=== PATIENT | female | born 1990 | race Caucasian/White ===

== ENCOUNTER → 2022-05-19 | Outpatient (CLI) | payer BC, SELFPAY ==
[2022-05-19 13:56] LABS: hCG Titer Quant., Serum 348 mIU/mL (1-3)
== END | disposition home or self-care (01) ==
PROVIDERS: PCP Nurse Practitioner Family; Referring Provider Nurse Practitioner Women's Health; Visit Provider Nurse Practitioner Women's Health
DX: O26.859 Spotting complicating pregnancy, unspecified trimester (principal)
CPT/HCPCS: 36415; 84702

== ENCOUNTER → 2022-05-21 | Outpatient (CLI) | payer BC, SELFPAY ==
[2022-05-21 16:12] LABS: hCG Titer Quant., Serum 1000 mIU/mL (1-3)
== END | disposition home or self-care (01) ==
LOC: LAB 14:09
PROVIDERS: Obstetrics & Gynecology; PCP Nurse Practitioner Family; Referring Provider Nurse Practitioner Women's Health; Visit Provider Nurse Practitioner Women's Health
DX: O26.859 Spotting complicating pregnancy, unspecified trimester (principal)
CPT/HCPCS: 36415; 84702

== ENCOUNTER → 2022-06-15 | Outpatient (CLI) | payer BC, SELFPAY ==
[2022-06-21 09:07] LABS: HPV APTIMA, High Risk Negative (Negative)
== END | disposition home or self-care (01) ==
LOC: LABSPEC 11:52
PROVIDERS: PCP Nurse Practitioner Family; Referring Provider Obstetrics & Gynecology; Visit Provider Obstetrics & Gynecology
DX: Z12.4 Encounter for screening for malignant neoplasm of cervix (principal)
CPT/HCPCS: 87624; 88175; G0145

== ENCOUNTER 2022-06-18 11:03 | Day surgery (SDC) | payer BC, SELFPAY ==
--- NOTE | 2022-06-18 11:39 | HP.PCM_ITS ---
History and Physical MR#: [id number] Acct: [id number]
--- NOTE | 2022-06-18 11:39 | PCM.HP.BLA ---
History and Physical MR#: [id number] Acct: [id number] Name:CAYLA LEAHY Rep #: [id number] : 1990 ? ? Provider: Dr. Cheyenne Cantor MD Age/Sex:? 32/F ? ? Location: [facility] [place] Status: Draft Intake Intake Visit Reasons:?NOB ? LMP:04/13 Examiner Rating Clerk Required: No Is patient in pain?: No Allergies No Known Allergies Allergy (Verified 06/15/22 09:26) Last Menstrual Period: 04/13/22 Zika: Zika virus screening: Negative : No PFSH PFSH Medical History?(Updated 06/15/22 @ 10:[address] Cheyenne Cantor MD) Ankylosing spondylitis Surgical History? Hx of wisdom tooth extraction Family History? Father Myocardial infarction Pulmonary embolism Heart diseaseMother Arthritis, rheumatoidSister EndometriosisGrandmother Alzheimer diseaseGrandfather Myocardial infarction Social History? adopted:? No household members:? family number of children:? 1 current occupational status:? employed current occupation:? [employer] current occupational exposures/hazards:? No pets and animals:? Yes pets and animals: dog(s) history of recent travel:? No sexually active:? Yes Smoking Status:? Never smoker alcohol intake:? never substance use type:? does not use well-balanced diet:? daily or most days caffeine:? Yes Type: tea Number of servings: 1 seatbelt use:? always do you feel safe at home:? No additional social history:? Chris- History ? ? ? 2 ? Elective abortions ? Hx Para ? ? ? 1 ? Spontaneous abortions ? Hx # Term Pregnancies ? ? ? 1 ? Ectopic pregnancies ? Hx # Pregnancies ? Multiple births ? # of living children ? ? ? 1 Past Pregnancies Del. Date Name GA/Weeks Outcome Route Bth Weight Gen Labor Lgth Anesthesia Del Locatn Provider FOB 10/30/20 Antonette 37 live - full term 6.6 Female 30+ epidural ? ? ? HPI NOB ? LMP:04/13 Details: CAYLA QUEVEDO is a 32 year old who presents for early evaluation and upon evaluation there is a GS with 6mm CRL with no FHT seen, non viable IUP. OB Visit AIME Calculator ? Estimated Delivery Date Method Current WG Current Estimate 01/18/23 LMP (Certain) 9w 0d Comments: HIV: Urine Culture: Sequential Screen: NIPT Screen: Estimated Due Date: 01/18/23 Expected Delivery Route/Plan Labor Preferences- CB/BF classes: [] labor support person: [] labor intervention preferences: [] pain management options preferred: [] cut cord/dad catch: [] : [] PP control planned: [] discussed possible routes of delivery and associated risks: [] special requests: [] Specific Issue/Plans Covid status: [] Flu vaccine: [] Tdap vaccine: [] Rhogam: [] LARC form signed: [] Problem list reviewed and updated with the most current plan of care details and appropriate orders placed.? Relevant counseling for the gestational age provided. Continue routine care and follow up unless otherwise noted in visit notes/problem list details Initial Weight:?Not Recorded Date <del>?</del> EGA Weight BP Urine Prot <del>?</del> Glucose FHR FuHt Pres Dilation <del>?</del> Effaced St Visit Note 06/15/22<del>?</del> 9w 0d 124 lb 133/76 <del>?</del> ? <del>?</del> ? ? SM- CRL cons with LMP SM- CRL 6 mm NOT cons with LMP Menstrual History Last Menstrual Period: 04/13/22 Reported LMP: definite On hormonal BC at conception: No Antepartum Record Genetic Screening: Congenital Heart Defect: Other, Neural Tube Defect: Other, Hemoglobinopathy Or Carrier: Other, Cystic Fibrosis: Other, Chromosome Abnormality: Other, Vern-Sachs: Other, Hemophilia: Other, Intellectual Disability/Autism: Other, Recurrent Loss/Stillbirth: Other, Other Structural Defect: Other, Other Genetic Disease: Other and Maternal Metabolic Disorder: Other Infection History: Live with someone with TB or Exposed to TB: No, Patient or Partner has history of Genital Herpes: No, Rash or Viral illness since last mentrual period: No, Prior GBS-Infected child: No, History of STD: No, HIV Infection: No, History of Hepatitis: No, Recent travel outside of [place]: No, Concern for hepatitis exposure: No and Varicella immune: Yes Medical History Medical History: Positive: Hypertension (Pre E with first preg ), Auto-immune disorder, Kidney disease/UTI ( kidney stones), 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 ), Pulmonary (e.g.,TB,Asthma) (childhood) and Relevant family history (clots after surgery) ROS Const Reports system reviewed and no additional complaints, except as documented Card Reports system reviewed and no additional complaints, except as documented Resp Reports system reviewed and no additional complaints, except as documented GI Reports system reviewed and no additional complaints, except as documented, Reports nausea Reports system reviewed and no additional complaints, except as documented Musc Reports system reviewed and no additional complaints, except as documented all other systems reviewed and negative Exam Const General: cooperative, healthy appearing, comfortable [facility] Head: normal to inspection Nose: external nose normal Face and sinus: normal facial exam Neck Neck: normal visual inspection, full ROM, no lymphadenopathy Thyroid: thyroid normal Chest Chest palpation & inspection: normal inspection of the chest Resp Effort & Inspection: normal respiratory effort GI Inspection: normal to inspection Palpation: soft, NTTP Extrem General: no pedal edema Coding missed discussed medical vs surgicla management- recommend surgical management. Assessment and Plan Assessment and Plan (1) Ankylosing spondylitis: ?Status:?Acute ?Comment: manages with diet. (2) History of pre-eclampsia in prior , currently : ?Status:?Acute ?Comment: ASA at 12 weeks, please order baseline labs with NOB (3) Supervision of high risk , antepartum: ?Status:?Acute ?Comment: AIME 01/20/23 RIKY Whitman (Arianna) Chris (4) : ?Status:?Acute ?Qualifiers: ?Weeks of gestation:?8 weeks? Qualified Code(s):?Z3A.08 - 8 weeks gestation of ?Comment: Discussed NIPT and AFP testing (5) Spotting affecting : ?Status:?Acute ?Comment: HCGx2 ? ? ? Orders: After discussing the patient's diagnosis and treatment plan options, patient wishes to proceed with surgical management. I have discussed with the patient the risks, benefits, and alternatives of the procedure which include but are not limited to risks of anesthesia, bleeding, infection, possible damage to bowel, bladder, or surrounding vasculature which could lead to additional surgery to evaluate any complications. Patient agrees to procedure and wishes to proceed. ACOG/uptodate references given for additional information regarding procedure.
[2022-06-18 11:42] VITALS: BP 103/61; PULSE 83; RESP 16; TEMP 36.9; O2SAT 100; BMI 20.7
[2022-06-18 11:47] LABS: Hematocrit 37.4 % (37-47); Hemoglobin 12.7 g/dL (12.0-15.0); Mean Corpuscular Hgb 30.4 pg (27.0-32.0); Mean Corpuscular Volume 89.5 fL (81-99); Mean Platelet Vol. 9.6 fl (6.2-12.0); Platelet Count 188 K/mm3 (150-450); RBC Distribution Width CV 11.7 % (11.6-14.6); RBC Distribution Width SD 38.1 fl (35.1-43.9); Red Blood Count 4.18 M/mm3 (4.2-5.4)
[2022-06-18] MEDS: Lactated Ringers 1,000 ML 15 ML IV (11:55)
[2022-06-18] MEDS: Doxycycline 100 MG CAPSULE PO (11:55)
--- NOTE | 2022-06-18 12:28 | OP.PCM_ITS ---
Problems Associated Problem List Diagnoses (1) Ankylosing spondylitis: (2) Missed : Report of Operation Date of Procedure: 06/18/22 Pre-Operative Diagnosis: see problem list Post-Operative Diagnosis: same Surgery/Procedure Performed:: Suction dilation and curettage Description of Surgical Findings:: no FHT present, Nonviable 9 weeks measuring 6 Surgeon: Cheyenne Cantor conservation science officer: None Type of Anesthesia: Local MAC Special Medications: none Specimen's removed: POC Drains: none Estimated Blood Loss (mL): 50 Fluids Replaced: crystalloid Description of Procedure: Patient was taken to the operating room and placed under MAC local anesthesia. She was prepped and draped in the normal sterile fashion the dorsal lithotomy p osition. Bladder was drained of clear urine and anterior lip of the cervix was grasped and the uterus sounded to []. Cervix was progressively dilated to allow passage of a [] suction curette. Progressive passes were made removing the retained products of conception without complication. Sharp curettage confirmed complete removal of the retained products. All instruments were removed from the vagina and excellent hemostasis was noted and the patient was taken to recovery in stable condition. Grafts/Implants Used: none Complications none Admit VTE Documentation VTE Present on Admission: No VTE Mechan Device Prophylaxis: SCD's Procedures Urinary/Genital 52xxx-59xxx: 38246 Trmt of incomplete Ab, any TM Multi Select Codes Urinary/Genital Urinary/Genital CPT Codes: 96604 Surg Trtmt missed Ab 1TM
--- NOTE | 2022-06-18 12:30 | POC_PTH ---
PATIENT: CAYLA QUEVEDO LOC: [facility] [place] U#:[id number] AGE/SX: 32/F ROOM: RE06/18/[address]: Dr. Cheyenne Cantor MD : 1990 BED: DIS: 06/18/2022 SPEC #: [id number] RECD: 06/18/22 13:00 STATUS: ZULAY GRIFFITHS #: [id number] HALINA: 06/18/22 12:[address]: Cheyenne Cantor DEPT: SURGICAL PATHOLOGY RECD BY: Melissa Emerson ENTERED: 06/21/22 07:27 SP TYPE: PROD CONC OTHR DR: Araceli Cole, BAL Tissues: Product of conception, NOS Procedures: Surgery Specimen Level IV HEADER OPERATION: Suction dilation and curettage, Anora PRE-OP DIAGNOSIS: Miscarriage TISSUE SUBMITTED: Contents of conception MICROSCOPIC DIAGNOSIS Endometrium, curettage: Chorionic villi, decidualized stroma and trophoblastic cells consistent with products of conception. AM:shantelle 06/22/2022 COMMENT The results of Anora study will be reported separately. MICROSCOPIC DESCRIPTION Slides are reviewed. GROSS DESCRIPTION Received in fixative is one container labeled with the patient's name and designated products of conception. The specimen consists of multiple irregular fragments of pink-douglas soft tissue that in aggregate measure 7.0 x 5.0 x 0.2 cm. Percussion Tuner portions are submitted for Anora testing. Percussion Tuner sections are submitted in one cassette. / AM:shantelle 06/21/2022 TC:5 CPT: 22133
--- NOTE | 2022-06-18 12:34 | DCINST_ITS ---
Discharge Instructions Procedure D&C Diet Discharge Diet: No restrictions Activity Discharge Activity: Return to Normal Activity, May Shower and May Take a Tub Bath (after 1 week) May resume sexual activity in: 1-2 weeks Weight Bearing Status: Weight bearing as tolerated Lifting Restrictions: none Dressing / Incision Call your doctor if you observe: Fever of 101 or Higher, Using more than 1 pad per hour, Shortness of breath and Uncontrolled pain Follow Up Care Please Follow Up With: Cheyenne Cantor MD When: Call [phone] to schedule appointment. Test Results: Test results from this visit will be discussed in further detail at your follow- up appointment, if applicable. Discharge Plan Admission Attending Provider: Cheyenne Cantor Primary Care Provider: Araceli Cole NP Discharge Orders/Prescriptions Prescriptions: No Action Mushroom 1 cap PO/SL QHS Referrals / Follow Up: Araceli Cole NP, SOCIAL SERVICES SPECIALIST-C [Primary Care Provider] - Disposition Disposition (needs filled in before D/C Order can be placed): Home, Self Care
[2022-06-18 13:00] VITALS: BP 103/61; BP 96/61; PULSE 67; RESP 14; TEMP 36.6; O2SAT 98
[2022-06-18 13:05] VITALS: BP 101/59; BP 103/61; PULSE 54; RESP 16; O2SAT 100
[2022-06-18 13:10] VITALS: BP 103/57; BP 103/61; PULSE 54; RESP 16; O2SAT 100
[2022-06-18 13:15] VITALS: BP 103/61; BP 96/60; PULSE 53; RESP 16; TEMP 36.8; O2SAT 100
[2022-06-18 14:28] VITALS: BP 103/61; BP 92/55; PULSE 68; RESP 18; TEMP 37.1; O2SAT 100
== END 2022-06-18 14:37 | disposition home or self-care (01) ==
LOC: SDC 11:03 → AC 11:05
PROVIDERS: PCP Nurse Practitioner Family; Referring Provider Obstetrics & Gynecology; Visit Provider Obstetrics & Gynecology
PROC: (CPT 59820; principal; 2022-06-18 12:15)
DX: O02.1 Missed abortion (principal); M45.9 Ankylosing spondylitis of unspecified sites in spine; O99.891 Other specified diseases and conditions complicating pregnancy; O16.1 Unspecified maternal hypertension, first trimester
CPT/HCPCS: 59820; 01965; 85027; 86850; 86900; 86901; 88305; J7120; J2405

== ENCOUNTER → 2023-01-28 | Outpatient (CLI) | payer BC, SELFPAY | END | disposition home or self-care (01) | PROVIDERS: PCP Nurse Practitioner Family; Visit Provider Obstetrics & Gynecology | DX: N76.0 Acute vaginitis (principal) | CPT/HCPCS: 87070; 87205 ==

== ENCOUNTER → 2023-02-10 | Outpatient (CLI) | payer BC, SELFPAY | END | disposition home or self-care (01) | PROVIDERS: PCP Nurse Practitioner Family; Visit Provider Registered Nurse | DX: N93.9 Abnormal uterine and vaginal bleeding, unspecified (principal) | CPT/HCPCS: 87070; 87205 ==

== ENCOUNTER → 2023-03-08 | Outpatient (CLI) | payer BC, SELFPAY ==
[2023-03-08 10:12] LABS: Absolute Neutrophil Count 2.4 X10^3/uL (2.0-7.7); Basophil# 0.04 X10^3/uL; Basophil% 0.7 % (0-1); Eosinophil# 0.07 X10^3/uL; Eosinophils% 1.3 % (0-5); Hematocrit 36.8 % (37-47); Hemoglobin 12.2 g/dL (12.0-15.0); Lymphocyte % 46.2 % (19-41); Mean Corp Hgb Conc 33.2 g/dL (32-36); Mean Corpuscular Hgb 29.9 pg (27.0-32.0); Mean Corpuscular Volume 90.2 fL (81-99); Mean Platelet Vol. 9.1 fl (6.2-12.0); Monocyte% 7.4 % (0-10); NRBC Flagged by Analyzer 0 % (0-5); Neutrophil # 2.39 X10^3/uL (2.7-7.7); Neutrophil % 44.2 % (47-70); Platelet Count 249 K/mm3 (150-450); RBC Distribution Width SD 39.4 fl (35.1-43.9); Red Blood Count 4.08 M/mm3 (4.2-5.4); White Blood Count 5.4 K/mm3 (4.4-11.0)
[2023-03-08 10:49] LABS: Prolactin 5.1 ng/mL; Thyroid Stim Hormone (TSH) 1.49 uIU/mL (0.358-3.74)
--- OUTSIDE RECORDS SUMMARY | 2023-03-08 11:02 | XMS RPT_ITS | CCD ---
Author Name Unknown Address [address] [place] [address] Organization [facility] Care Team Providers Care Beverage Inspection Machine Tender Name Role Phone Unavailable Primary Care Provider Araceli Chambers (It Account Manager) Primary Care Provider [phone] Laci COSBY, Benito Unavailable YENNY HAWK Referring Unavailable ARACELI COLE (YARN PACKER) Primary Care UnavailARACELI Levy (YARN PACKER) Primary Care UnavailYENNY Holman Referring Unavailable Araceli Cole (It Account Manager) Primary Care Provider [phone] Benito Rivas MD Unavailable BENITO RIVAS Attending Unavailable AMIRA MARQUEZ Referring Unavailable ARACELI COLE (YARN PACKER) Primary Care UnavailYENNY Holman Attending Unavailable ARACELI COLE (YARN PACKER) Primary Care UnavailAMIRA Noble Attending Unavailable YENNY HAWK Attending Unavailable AMIRA MARQUEZ Referring Unavailable BENITO RIVAS Referring Unavailable ARACELI COLE (YARN PACKER) Primary Care ARACELI Johnson Primary Care Physician ARACELI PARKS Attending ARACELI Rodrigues Primary Care ARACELI Rodrigues Attending ARACELI Rodrigues Primary Care Sadiavacharity labtoby Allergies Allergy Classification Reported Allergen(s) Allergy Type Date of Onset Reaction(s) Facility (8 sources) meloxicam; Translations: [MELOXICAM] Drug Allergy 03-07-2019 Other: See Comments [facility] Work Phone: (8 sources) Pseudoephedrine; Translations: [PSEUDOEPHEDRINE HCL] Drug Allergy 12-08-2017 Other: See Comments [facility] Work Phone: Medications Current Medications Medication Drug Class(es) Dates Sig (Normalized) Sig (Original) iv contrast (will be provided with radiology test) (1 source) Start: 12-30-2021 End: 12-31-2021 iv contrast (will be provided with radiology test) MRI pelvis ortho Inj, intravenously, once for 1 dose. No IV access, insert saline lock prior to the beginning of sedation, infusion, injection of imaging exam. Discontinue saline lock post exam. If Pt. has a central line or IVAD, may access for administration according to line specific nursing protocol. Once exam is complete flush line and de-access according to line specific nursing protocol in the MR contrast administration guidelines link 1 Each 0 12/30/2021 12/31/2021 Active Completed/Discontinued Medications Medication Drug Class(es) Dates Sig (Normalized) Sig (Original) acetaminophen 500 mg oral tablet (1 source) Start: 11-01-2020 End: 11-10-2021 take 2 tablets by mouth every six hours as needed acetaminophen (TYLENOL EXTRA STRENGTH) 500 mg tablet Take 2 tablets by mouth every 6 hours as needed for pain. 100 tablet 1 11/01/2020 11/10/2021 Discontinued Problems Active Problems Problem Classification Problem Date Documented Da te Episodic/Chronic Cardiac dysrhythmias (1 source) Palpitations; Translations: [Palpitations] Episodic Genitourinary symptoms and ill-defined conditions (1 source) Abnormal urine; Translations: [Unspecified abnormal findings in urine] Episodic Malaise and fatigue (1 source) Malaise and fatigue; Translations: [Other malaise] Episodic Other bone disease and musculoskeletal deformities (1 source) Disorder of bone; Translations: [Disorder of bone, unspecified] Episodic Other connective tissue disease (7 sources) Muscle pain; Translations: [Myalgia, unspecified site] Onset: 11-14-2021 Episodic Other connective tissue disease (1 source) Myalgia, unspecified site; Translations: [Myalgia] Onset: 11-14-2021 Episodic Other non-traumatic joint disorders (2 sources) Multiple joint pain; Translations: [Pain in unspecified joint] Episodic Other non-traumatic joint disorders (1 source) Pain in unspecified joint; Translations: [Polyarthralgia] Onset: 12-24-2021 Episodic Other screening for suspected conditions (not mental disorders or infectious disease) (5 sources) Elevated C-reactive protein; Translations: [Elevated C-reactive protein (CRP)] Onset: 12-17-2021 Episodic Other upper respiratory infections (4 sources) Acute pharyngitis, unspecified; Translations: [Postnasal drip] Onset: 02-24-2023 Episodic Residual codes; unclassified (9 sources) History of pre-eclampsia; Translations: [Personal history of other complications of , childbirth and the puerperium] Onset: 12-09-2020 Episodic Residual codes; unclassified (1 source) Human leukocyte antigen B27 test positive; Translations: [Genetic susceptibility to other disease] Episodic Spondylosis; intervertebral disc disorders; other back problems (1 source) Spondyloarthritis; 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, site unspecified] Chronic Spondylosis; intervertebral disc disorders; other back problems (3 sources) Backache; Translations: [Other dorsalgia] Onset: 12-24-2021 Episodic Unclassified (2 sources) Patient encounter status 12-28-2022 Past or Other Problems Problem Classification Problem Date Documented Date Episodic/Chronic Residual codes; unclassified (6 sources) FH: Thrombosis; Translations: [Family history of ischemic heart disease and other diseases of the circulatory system] Onset: 06-17-2020 06-17-2020 Episodic Residual codes; unclassified (1 source) Personal history of other complications of , childbirth and the puerperium; Translations: [History of pre-eclampsia] Onset: 12-09-2020 Episodic Results Test Name Value Interpretation Reference Range Facil ity Vital Signs Date Time Vital Sign Value Performing Clinician Casandra schmitz 12-22-2021 09:48-0400 Diastolic blood pressure 56 mm[Hg] Benito Rivas MD Work Phone: [facility] 12-22-2021 09:48-0400 Heart rate 66 /min Benito Rivas MD Work Phone: [facility] 12-22-2021 09:48-0400 Systolic blood pressure 94 mm[Hg] Benito Rivas MD Work Phone: [facility] 12-22-2021 09:41-0400 Body height 162.6 cm Benito Rivas MD Work Phone: [facility] 12-22-2021 09:41-0400 Body weight 56.52 kg Benito Rivas MD Work Phone: [facility] 12-17-2021 14:26-0400 Body height 162.6 cm Yenny Hawk MD Work Phone: [facility] 12-17-2021 14:26-0400 Body temperature 97.59 [degF] Yenny Hawk MD Work Phone: [facility] 12-17-2021 14:26-0400 Body weight 56.7 kg Yenny Hawk MD Work Phone: [facility] 12-17-2021 14:26-0400 Diastolic blood pressure 77 mm[Hg] Yenny Hawk MD Work Phone: [facility] 12-17-2021 14:26-0400 Heart rate 95 /min Yenny Hawk MD Work Phone: [facility] 12-17-2021 14:26-0400 Systolic blood pressure 111 mm[Hg] Yenny Hawk MD Work Phone: [facility] 11-10-2021 10:41-0400 Body height 162.6 cm Amiragregory Marquez APRN.CNM Work Phone: [facility] 11-10-2021 10:41-0400 Body weight 56.25 kg Amiragregory Marquez RADIATION PROTECTION SPECIALIST.CNM Work Phone: [facility] 11-10-2021 10:41-0400 Diastolic blood pressure 68 mm[Hg] Amiragregory Duqueson RADIATION PROTECTION SPECIALIST.CNM Work Phone: [facility] 11-10-2021 10:41-0400 Systolic blood pressure 128 mm[Hg] Amira Marquez RADIATION PROTECTION SPECIALIST.CNM Work Phone: [facility] Encounters Encounter Date Encounter Type Care Provider Facility Start: 02-24-2023 End: 03-01-2023 ambulatory ARACELI COLE APRN-BRANCH MAKER Facility:B Start: 02-24-2023 End: 02-28-2023 Outreach Lab ARACELI COLE RADIATION PROTECTION SPECIALISTANA MARÍA [facility] Start: 12-28-2022 End: 12-29-2022 ambulatory ARACELI COLE RADIATION PROTECTION SPECIALIST-BRANCH MAKER Facility:B Start: 12-28-2022 End: 12-28-2022 Patient encounter procedure ARACELI COLE RADIATION PROTECTION SPECIALISTANA MARÍA [facility] Start: 12-30-2021 End: 12-30-2021 [facility] Yenny Hawk MD Work Phone: Rheumatology Procedures Date Procedure Procedure Detail Performing Clinician Start: 02-28-2022 Dilation and curetta ge of uterus ARACELI COLE ALEC Start: 10-28-2020 Antibody screen Plan of Treatment Date Care Activity Detail Author Start: 08-26-2030 Urine microalbumin profile DTAP,TDAP,TD (8 - Td or Tdap) [facility] Start: 04-27-2024 PAP TESTING PAP TESTING [facility] Start: 12-30-2021 End: 03-01-2022 Protein/Creatinine [Mass Ratio] in Urine PROTEIN CREATININE RATIO Lab Routine Abnormal urine findings Expected: 12/30/2021, Expires: 03/01/[address] [facility] Work Phone: Immunizations Immunization Date Immunization Notes Care Provider Sivakumar barnes 12-26-2020 SARS-CoV-2 mRNA (tozinameran) vaccine ARACELI COLE RADIATION PROTECTION SPECIALIST-BRANCH MAKER [facility] [place] Payers Date Payer Category Payer Unknown LILIANE LON MARTINEZ PPO [id number] 2020-Present [phone] [facility] [id number] [place] [address] PPO [id number] 2020 Unknown [id number] 1990 Unknown [id number] 1990 Unknown [id number] Social History Date Type Detail Facility Start: 11-10-2021 End: 11-30-2022 Tobacco smoking status NHIS Never smoked tobacco [facility] Start: 11-10-2021 Tobacco use and exposure Smokeless tobacco non-user [facility] Start: 11-10-2021 Alcohol intake Ex-drinker (finding) [facility] Start: 12-26-2018 History SDOH Alcohol Comment Occasionally [facility] Start: 1990 Sex Assigned At Female [facility] Start: 10-31-2021 End: 12-24-2021 Exposure to SARS-CoV-2 (event) Not sure [facility] Start: 12-22-2021 Alcohol intake Current drinke r of alcohol (finding) [facility] Start: 12-22-2021 Alcohol Comment Occasionally 1x/ mon th [facility] Sex Assigned At Sex [facility] Clinical Notes 10-28-2020 to 02-26-2023 Yenny Hawk MD - 12/30/2021 10:01 AM YEHUDA Camacho - 12/24/2021 9:45 AM José Miguel Rivas MD - 12/22/2021 9:30 AM Lion Hawk MD - 12/17/2021 3:06 PM EDTPatient Instructions Note Date & Type Note Facility 02-26-2023 Note . MICRO - Microbiology PROCEDURE: Throat Culture [*1] SOURCE: Throat BODY SITE: COLLECTED DATE/TIME: 02/24/2023 10:45 EST RECEIVED DATE/TIME: 02/24/2023 18:53 EST START DATE/TIME: 02/24/2023 18:53 EST FREE TEXT SOURCE: FINAL REPORTS Final Report [] Verified Date/Time/Personnel: 02/26/2023 07:40 EST Normal throat rangel present Sensitivity Testing: Not Indicated PRELIMINARY REPORTS Preliminary Report [] Verified Date/Time/Personnel: 02/25/2023 08:45 EST Negative for upper respiratory pathogens at 24 hours. Performing Locations *1: This test was performed at: [facility], [address] [place] [address], [facility] , [facility] ([place]) 12-30-2021 Note HNO ID: [id number] Author: Yenny Hawk MD Service: ? Author Type: Physician Type: Progress Notes Filed: 12/30/2021 10:28 AM Note Text: Rheumatology FOLLOW UP VISIT Date of Service: 12/30/2021 Patient: Cayla Quevedo Medical Record: [id number] Primary Care Physician: Araceli Cole NP Last Rheumatology visit: 12/17/2021 (with Yenny Hawk) Chief Complaint: Back Pain This is a virtual visit using Audio only. It required patient-provider interaction for the medical decision making as documented below. INTERVAL HISTORY Cayla Quevedo is a 31 year old White female with a history of preeclampsia, Martinez's palsy, left hip labral tear, family history of psoriatic arthritis, polyarthralgia who presents to rheumatology clinic for virtual follow-up typical for her test results. She is overall doing quite well. She went on a hiking trip in the [facility] and had no back pain and was able to carry her backpack without issue. No other new health concerns. RHEUMATOLOGIC HISTORY Cayla is both RF - 9 (12/24/2021) and CCP - 13.5 (12/24/2021) negative. Her most recent FERNANDO was positive (12/24/2021). 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 Today she presents to clinic alone. She states that she had her daughter 10/30/2020 and since that time she has been having issues. She has been having chronic fatigue where it is a struggle to get through her day. She does not have to take a nap every day but some days she would like to. She also has intermittent joint pain notably in her hands, knees, and back. This is associated with significant stiffness particularly in the morning. Her hand pain is described as burning, feeling hot from the inside, and a grinding pain with subjective decreased strength. It is mostly on the second and third MCPs in the interim space between the thumb and the second finger. When she gets flares in her hands episode will last a few days and eventually self resolved. She does not like to use medicine and has not tried NSAIDs. Since her also she also notes that she cannot get her back and pelvis properly aligned. She is following with a chiropractor and noticed lots of cracking in her pelvis with movement. Her low back pain does wake her up at night, improves with exercise, and is associate with significant morning stiffness. She also will intermittently get neck and upper back pain. Overall her symptoms are mild and are rated as a 3 out of 10 at its worst. Regarding her sleep, she sleeps 9 PM to 5 or 6 in the morning most nights. She intermittently wakes up but not every night. She only has issues falling back sleep due to her back stiffness. She wakes up feeling refreshed. She has also noticed other symptoms since having her child. She had persistent diarrhea and eventually this improved when she weaned from breast-feeding. She also noticed oral sores described as water blisters that occur monthly and worse with menstruation. Her skin gets white spots in the sun. She had 1 episode of tongue swelling. She does have significant dry mouth all the time and intermittent dry eye since her episode of Martinez's palsy on the left. She has made significant dietary changes including eliminating refined sugar and grains with improvement in her joint pains. Her feet turn bluish in the cold. She intermittently gets chest heaviness with palpitations. She had 1 episode of 12 hours of persistent [id number] in her hands and feet. She has had 1 , 1 child, no history of miscarriages, no blood clots. They are planning for additional in the next calendar year. Rheumatologic review of systems otherwise negative for fevers, headaches, history of uveitis, sores in her nose, malar rash, photosensitivity, difficulty swallowing, cough, congestion, abdominal pain, constipation, current diarrhea, blood in her urine or stool, rashes, Raynaud's. Pain Evaluation Pain Evaluation 10/31/2020 11/01/2020 11/01/2020 11/01/2020 12/22/2021 Pain Score 3 3 3 3 2 Location Perineal Area Perineal Area Perineal Area Perineal Area Chest Description Sore Sore Sore Sore Pressure Duration (#) - - - - 2 Duration (Timeframe) - - - - Months Frequency - - - - Intermittent Intervention Reposition;Relaxation Medication;Reposition;Relaxation Relaxation Medication;Reposit (more content not included)... [facility] 12-30-2021 History of Present illness Narrative Images from the original note were not included. Rheumatology FOLLOW UP VISIT Date of Service: 12/30/2021 Patient: Cayla Quevedo Medical Record: [id number] Primary Care Physician: Araceli Cole NP Last Rheumatology visit: 12/17/2021 (with Yenny Hawk) Chief Complaint: Back Pain This is a virtual visit using Audio only. It required patient-provider interaction for the medical decision making as documented below. INTERVAL HISTORY Cayla Quevedo is a 31 year old White female with a history of preeclampsia, Martinez's palsy, left hip labral tear, family history of psoriatic arthritis, polyarthralgia who presents to rheumatology clinic for virtual follow-up typical for her test results. She is overall doing quite well. She went on a hiking trip in the [facility] and had no back pain and was able to carry her backpack without issue. No other new health concerns. RHEUMATOLOGIC HISTORY Cayla is both RF - 9 (12/24/2021) and CCP - 13.5 (12/24/2021) negative. Her most recent FERNANDO was positive (12/24/2021). 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 Today she presents to clinic alone. She states that she had her daughter 10/30/2020 and since that time she has been having issues. She has been having chronic fatigue where it is a struggle to get through her day. She does not have to take a nap every day but some days she would like to. She also has intermittent joint pain notably in her hands, knees, and back. This is associated with significant stiffness particularly in the morning. Her hand pain is described as burning, feeling hot from the inside, and a grinding pain with subjective decreased strength. It is mostly on the second and third MCPs in the interim space between the thumb and the second finger. When she gets flares in her hands episode will last a few days and eventually self resolved. She does not like to use medicine and has not tried NSAIDs. Since her also she also notes that she cannot get her back and pelvis properly aligned. She is following with a chiropractor and noticed lots of cracking in her pelvis with movement. Her low back pain does wake her up at night, improves with exercise, and is associate with significant morning stiffness. She also will intermittently get neck and upper back pain. Overall her symptoms are mild and are rated as a 3 out of 10 at its worst. Regarding her sleep, she sleeps 9 PM to 5 or 6 in the morning most nights. She intermittently wakes up but not every night. She only has issues falling back sleep due to her back stiffness. She wakes up feeling refreshed. She has also noticed other symptoms since having her child. She had persistent diarrhea and eventually this improved when she weaned from breast-feeding. She also noticed oral sores described as water blisters that occur monthly and worse with menstruation. Her skin gets white spots in the sun. She had 1 episode of tongue swelling. She does have significant dry mouth all the time and intermittent dry eye since her episode of Martinez's palsy on the left. She has made significant dietary changes including eliminating refined sugar and grains with improvement in her joint pains. Her feet turn bluish in the cold. She intermittently gets chest heaviness with palpitations. She had 1 episode of 12 hours of persistent [id number]-[id number] in her hands and feet. She has had 1 , 1 child, no history of miscarriages, no blood clots. They are planning for additional in the next calendar year. Rheumatologic review of systems otherwise negative for fevers, headaches, history of uveitis, sores in her nose, malar rash, photosensitivity, difficulty swallowing, cough, congestion, abdominal pain, constipation, current diarrhea, blood in her urine or stool, rashes, Raynaud's. Pain Evaluation Pain Evaluation 10/31/2020 11/01/2020 11/01/2020 11/01/2020 12/22/2021 Pain Score 3 3 3 3 2 Location Perineal Area Perineal Area Perineal Area Perineal Area Chest Description Sore Sore Sore Sore Pressure Duration (#) - - - - 2 Duration (Timeframe) - - - - Months Frequency - - - - Intermittent Intervention Reposition;Relaxation Medication;Reposition;Relaxation Relaxation Medication;Reposition;Relaxation - PATIENT-ENTERED DATA PROMIS Assessments PROMIS Assessments 12/10/2021 Physical Health Percentile 53 % Mental Health Percentile 53 % Pain Score 4 Pain Interference Percentile 62 % Fatigue Percentile 58 % Physical Function Percentile 79 % RAPID 3 [place] Activities of Daily Living 12/10/2021 9:44 AM Dress self? Without ANY difficulty Get in and out of bed? Without ANY difficulty Walk outdoors? Without ANY difficulty Wash and dry body? Without ANY difficulty Get in and out of car? Without ANY difficulty RAPID 3 Disease Activity Weighed Score Levels: 0 - 1: Near Remission 1.3 - 2.0: Low Severity 2.3 - 4.0: Moderate Severity 4.3 - 10.0: High Severity RAPID-3 Weighed Score 12/10/2021 RAPID 3 Weighed Score 0.67 (Near Remission (NR)) Review of Systems CONSTITUTION: Negative for: Fever and Recent weight change HEENT: Positive for: Dry mouth Negative for: Nosebleeds, Mouth sores and Trouble swallowing RESPIRATORY: Negative for: Cough, Shortness of breath and Pain with breathing GASTROINTESTINAL: Negative for: Melena, Diarrhea, Heartburn and Abdominal pain MUSCULOSKELETAL: Negative for: Arthralgias, Myalgias, Muscle weakness, Joint swelling and Morning Joint Stiffness NEUROLOGICAL: Negative for: Headaches, Numbness and Memory loss SKIN: Negative for: Rash, Skin changes, Hair loss and Nail changes EYES: Negative for: Eye pain, Eye redness, Eye dryness and visual disturbance CARDIOVASCULAR: Negative for: Chest pain and Leg swelling GENITOURINARY: Negative for: Dysuria and Hematuria HEMATOLOGIC/LYMPHATIC: Negative for: Swollen glands REVIEW OF SYSTEMS Complete ROS (HEENT, respiratory, cardiology, GI, , skin, psych, hematology, endocrine, neuro, musculoskeletal) negativee except as noted in HPI. HISTORIES Past medical, surgical, family, and social history reviewed and notable changes since last visit include: No significant change MEDICATIONS Current Outpatient Medications Medication Sig iv contrast (will be provided with radiology test) MRI pelvis ortho Inj, intravenously, once for 1 dose. No IV access, insert saline lock prior to the beginning of sedation, infusion, injection of imaging exam. Discontinue saline lock post exam. If Pt. has a central line or IVAD, may access for administration according to line specific nursing protocol. Once exam is complete flush line and de-access according to line specific nursing protocol in the MR contrast administration guidelines link [id number] tab Take 1 tablet by mouth once daily. ALLERGIES ALLERGIES Allergen Reactions Meloxicam Other: See Comments syncope syncope syncope Pseudoephedrine Hcl Other: See Comments palpitations LABS Reviewed in Epic, notable for: Positive FERNANDO 1: 80 nuclear fine speckled Positive HLA-B27 FERNANDO negative RF, CCP Normal ESR, CRP Negative lupus anticoagulant panel CBC Latest Ref Rng & Units 10/28/2020 10/31/2020 11/07/2020 12/24/2021 WBC 3.70 - 11.00 k/uL 9.29 12.66(H) 7.08 5.04 HEMOGLOBIN 11.5 - 15.5 g/dL 14.0 12.8 14.9 13.4 HEMATOCRIT 36.0 - 46.0 % 41.1 38.3 44.8 39.7 PLATELETS 150 - 400 k/uL 153 119(L) 246 202 ABS NEUT (ANC) 1.45 - 7.50 k/uL - - - 2.42 ABS LYMPH 1.00 - 4.00 k/uL - - - 2.08 CMP Latest Ref Rng & Units 11/07/2020 11/14/2020 11/19/2020 12/24/2021 SODIUM 136 - 144 mmol/L 138 139 138 140 POTASSIUM 3.7 - 5.1 mmol/L 4.2 3.9 4.4 4.3 CHLORIDE 97 - 105 mmol/L 103 102 102 103 CO2 22 - 30 mmol/L 26 26 27 25 GLUCOSE 74 - 99 mg/dL 88 88 77 90 BUN 7 - 21 mg/dL 12 22(H) 12 18 CREATININE 0.58 - 0.96 mg/dL 0.69 1.36(H) 0.80 0.74 CALCIUM, TOTAL 8.5 - 10.2 mg/dL 9.6 9.4 9.5 9.8 AST 13 - 35 U/L 40(H) 19 20 14 ALT 7 - 38 U/L 59(H) 28 25 13 ALKALINE PHOSPHATASE 34 - 123 U/L 149(H) 107 100 65 Uric Acid Latest Ref Rng & Units 10/27/2020 11/07/2020 URIC ACID 2.5 - 6.6 mg/dL 5.8 5.8 ESR, WSR Latest Ref Rng & Units 12/24/2021 WSR 0 - 20 mm/hr 5 CRP Latest Ref Rng & Units 12/24/2021 CRP <0.9 mg/dL <0.3 C3, C4 Latest Ref Rng & Units 12/24/2021 C3 86 - 166 mg/dL 127 C4 13 - 46 mg/dL 44 RF and CCP Latest Ref Rng & Units 12/24/2021 RHEUMATOID FACTOR <16 IU/mL <10 CCP ANTIBODY IGG QUALITATIVE Negative Negative CCP ANTIBODY, IGG <20 Units <15 Hepatitis Screen Latest Ref Rng & Units 05/12/2020 HEPCABEIA Negative Negative HBSAG Negative Negative Antibodies Latest Ref Rng & Units 12/24/2021 12/24/2021 FERNANDO Negative Positive(A) - FERNANDO TITER - 1:80 - FERNANDO PATTERN - Nuclear fine speckled - DNA ANTIBODY W/CONFIRMATION <30 IU/mL <12 <12 PRESCHOOL ASSOCIATE TEACHER ANTIBODY QUAL Negative Negative Negative SSA ANTIBODY QUAL Negative Negative Negative JUNIOR-1 ANTIBODY, IGG <1.0 AI <0.2 <0.2 JUNIOR 1 ANTIBODY QUAL Negative Negative Negative RIBOSOMAL PRESCHOOL ASSOCIATE TEACHER AB <1.0 AI <0.2 <0.2 RIBOSOMAL PRESCHOOL ASSOCIATE TEACHER QUAL Negative Negative Negative ANTI-SSA <1.0 AI <0.2 <0.2 ANTI-SSB <1.0 AI <0.2 <0.2 ANTI-SM <1.0 AI <0.2 <0.2 SM ANTIBODY Negative Negative Negative SCL-70 AB QUAL Negative Negative Negative SCL-70 ABS, EIA <1.0 AI <0.2 <0.2 CENTROMERE AB <1.0 AI <0.2 <0.2 CENTROMERE AB QUAL Negative Negative Negative CHROMATIN AB <1.0 AI <0.2 <0.2 CHROMATIN AB QUAL Negative Negative Negative PT SEC 9.7 - 13.0 sec 10.4 - PT INR 0.9 - 1.3 1.0 - PTT 23.0 - 32.4 sec 27.6 - PLATELET NEUT Negative Negative - DRVVT SCREEN 32.0 - 45.7 seconds 38.9 - DRVVT CONFIRM RATIO <1.32 1.08 - DRVVT 1 TO 1 MIX 32.0 - 45.7 seconds 35.3 - HEX PHASE SCREEN 34.0 - 51.8 seconds 51.6 - HEX PHASE CONFIRM 34.2 - 47.9 seconds 46.3 - HEX PHASE DELTA <7.1 delta seconds 5.2 - APTT SCREEN 24.0 - 35.1 seconds 34.0 - THROMBIN TIME <18.6 seconds <16.8 - CARDIOLIPIN AB, IGG <15.0 GPL <9.0 - CARDIOLIPIN AB, IGM <12.5 MPL <9.0 - CARDIOLIPIN AB, IGA <12.0 APL <9.0 - HLA B27 12/24/2021 HLA-B27 DNA RESULT Positive Urinalysis Latest Ref Rng & Units 10/27/2020 10/28/2020 11/07/2020 12/24/2021 PROTEIN, URINE Neg mg/dL 2,000 - - - PROTEIN UA (POCT) Negative mg/dL - >=300(A) - - RBC, URINE 0-3 /HPF - - - 0-3 /HPF PROTEIN/CREATININE RATIO <0.15 mg/mg 2.2(H) - 3.9(H) <0.41(H) IMAGING Reviewed in Epic, notable for: Normal SI joint x-rays Normal hand and foot x-rays ASSESSMENT Cayla Quevedo is a 31 year old White female with a history of preeclampsia, Martinez's palsy, left hip labral tear, family history of psoriatic arthritis, polyarthralgia who presents to rheumatology clinic for virtual follow-up typical for her test results. 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 We discussed options including pretreat with NSAIDs and exercise versus additional work-up with MRI to evaluate SI joints. She has been self treating and doing better with medications and prefers MRI to evaluate if her disease remains active. Of note she was also on her period when her labs were drawn and had abnormal UA and urine protein creatinine so we will repeat those anytime. 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 MRI SI joints anytime 2. Repeat UA, urine protein/creatinine ratio anytime 3. Continue self treatment with exercise and diet 4. Consider prescription strength NSAID if symptoms were to worsen 5. We will touch base after MRI is done Orders this visit: [facility] on 12[facility]30[facility]21 MRI PELVIS ORTHO GENERAL WO/W IVCON URINALYSIS WITH MICROSCOPIC, REFLEX CULTURE PROTEIN CREATININE RATIO iv contrast (will be provided with radiology test) No follow-ups on file. I spent a total of 24 minutes on the date of the service which included preparing to see the patient, obtaining and/or reviewing separately obtained history, counseling and educating the patient/family/caregiver, and ordering medications, tests, or procedures. This note was partially generated with the assistance of [employer] voice recognition software. An attempt was made to correct any dictation errors however there may be some incorrect words, spellings, and punctuation. ___ Yenny Hawk MD Rheumatology Date: December 30, 2021 Time: 10:01 AM documented in this encounter [facility] 12-24-2021 Note HNO ID: [id number] Author: YEHUDA Bae Service: Radiology Author Type: Technologist Type: Progress Notes Filed: 12/24/2021 10:12 AM Note Text: Radiology Service Progress Note PATIENT NAME: Cayla Quevedo DATE OF SERVICE: December 24, 2021 TIME: 10:10 AM PATIENT IDENTITY VERIFICATION COMPLETED USING TWO (2) IDENTIFIERS: Name and Date of confirmed by patient verbally. FALL SCREENING: Has the patient had 2 falls in the last year or 1 fall with injury or currently using an Ambulatory Assistive Device (Walker, Cane, Wheelchair, Crutches, etc.)? No PATIENT GENDER DATA: Female. status: : No status: NO. PATIENT RELEVANT IMPLANT DATA REVIEWED: Not Applicable RADIOLOGY DEPARTMENT: General X-ray: Exam(s) Completed: Lower Extremity X-Ray(s): Foot, Bilateral Upper Extremity X-Ray(s): Hand, bilateral PERIPHERAL IV DATA: Not applicable SIGNED BY: YEHUDA Bae December 24, 2021 10:10 AM [facility] 12-24-2021 History of Present illness Narrative Radiology Service Progress Note PATIENT NAME: Cayla Quevedo DATE OF SERVICE: December 24, 2021 TIME: 10:10 AM PATIENT IDENTITY VERIFICATION COMPLETED USING TWO (2) IDENTIFIERS: Name and Date of confirmed by patient verbally. FALL SCREENING: Has the patient had 2 falls in the last year or 1 fall with injury or currently using an Ambulatory Assistive Device (Walker, Cane, Wheelchair, Crutches, etc.)? No PATIENT GENDER DATA: Female. status: : No status: NO. PATIENT RELEVANT IMPLANT DATA REVIEWED: Not Applicable RADIOLOGY DEPARTMENT: General X-ray: Exam(s) Completed: Lower Extremity X-Ray(s): Foot, Bilateral Upper Extremity X-Ray(s): Hand, bilateral PERIPHERAL IV DATA: Not applicable SIGNED BY: YEHUDA Bae December 24, 2021 10:10 AM documented in this encounter [facility] 12-22-2021 Note HNO ID: [id number] Author: Benito Rivas MD Service: ? Author Type: Physician Type: Progress Notes Filed: 01/18/2022 10:37 PM Note Text: Heart and Vascular [facility] Department of Cardiovascular Medicine SECTION OF PREVENTIVE CARDIOLOGY Cayla Quevedo 12/22/2021 CHIEF COMPLAINT: Patient presents with: CARD New Patient Consult: Hx pre-eclampsia HISTORY OF PRESENT CARDIOVASCULAR ILLNESS: Cayla Quevedo is a 31 year old female who presents for high risk primary prevention, preeclampsia with recent .. -- #1 delivery 10/30/2021 3rd trimester BP's 140/90's, associated with headaches induced @ 37 wks 35-40 lbs weight gain during --home BP's checked in few weeks after delivery, SBP < 120's --chest pain heavy heartbeat , stronger heartbeat 5-6 beats, lasting few seconds not associated with exertion; while seated, in mornings while laying no recent syncope; though multiple episodes age [age], even into college years --diet-- antiinflammatory diet ; decreased caffeine, alcohol, refined sugars Denies shortness of breath, dyspnea on exertion, activity limitations, PND, orthopnea, LE edema CARDIAC RISK FACTORS: Not specified Exercise: More than 5 times per week Family History of CAD: Positive (male<55, female<65) HIIT walking 2 miles up to 5-6 miles Pilates, yoga, barre class cardio 5-6x/week denies limitations to exercise father CAD s/p CABG age 60's PGFa CAD s/p CABG age 55 Avg. Sleep Hours Per Night?: 7 STATIN INTOLERANCE: Adverse Effect History of Statin Intolerance:: No Current Statin Freq: None USE OF PCSK9 INHIBITORS: CARDIOVASCULAR DISEASE HISTORY: Valve Disease: Arrhythmias: HEART FAILURE/CARDIOMYOPATHY: RELATED DISEASE HISTORY: History question Answer Diagnosis Date Comment POTS : Postural orthostatic tachycardia syndrome 2007 suspected POTS, multiple epsiodes of syncope age [age] PAST MEDICAL HISTORY: PAST MEDICAL HISTORY Diagnosis Date Mild pre-eclampsia in third trimester 10/28/2020 NEGATIVE MEDICAL HISTORY Postural orthostatic tachycardia syndrome 2007 suspected POTS, multiple epsiodes of syncope age 15-17 CURRENT MEDS: Current Outpatient Medications Medication Sig Qavxjtnw-Ia-Mqu-Fe-FA tab Take 1 tablet by mouth once daily. No current facility-administered medications for this visit. ALLERGIES: ALLERGIES Allergen Reactions Meloxicam Other: See Comments syncope syncope syncope Pseudoephedrine Hcl Other: See Comments palpitations FAMILY HISTORY: FAMILY HISTORY Problem Relation Age of Onset other (Psoriatic Arthritis) Mother Hypertension Father Coronary Artery Disease Father CAD s/p CABG age 60 other (Pulmonary Embolism) Father No Known Problems Sister other (Ovarian Cyst) Sister other (Anemia) Sister other (Endometrosis) Sister Arthritis Maternal Grandmother other (Ovarian Cysts) Maternal Grandmother Kidney Disease Maternal Grandfather Aneurysm Maternal Grandfather Abdominal Alzheimer's Disease Paternal Grandmother Coronary Artery Disease Paternal Grandfather CAD s/p CABG age 55 SOCIAL HISTORY: Lifestyle Employer And Job Title: [employer] ([email or web address] Years Of Education Completed: Not specified Marital Status: to Chris with 1 child Tobacco use in the last year: No Alcohol Use: Yes (Occasionally 1x/ month) REVIEW OF SYSTEMS: positives appear in bold GENERAL:Negative for malaise, significant weight loss or gain and fever HEENT:Negative for frequent or significant headaches, significant changes in vision or vision problems, significant ear problems or hearing loss, nasal discharge or nose bleeds and sore throat, difficulty swallowing, mouth lesions NECK:Negative for lumps, goiter, pain and significant neck swelling RESPIRATORY: Negative for cough, wheezing and shortness of breath CARDIOVASCULAR: Negative for chest pain, leg swelling and palpitations GASTROINTESTINAL: Negative for abdominal discomfort, blood in stools or black stools and change in bowel habits GENITOURINARY: Negative for dysuria, frequency and incontinence MANUFACTURING ASSOCIATE: Negative for abnormal vaginal bleeding, abnormal vaginal discharge and breast symptoms MUSCULOSKELETAL: Negative for joint pain or swelling--fingers, intense burning, pain, back pain, feet pain, and muscle pain. NEUROLOGIC:Negative for focal numbness or weakness, headaches and dizziness. SKIN:Negative for lesions, rash, and itching. PSYCHIATRIC: Negative for sleep disturbance, mood disorder and recent psychosocial stressors. HEMATOLOGIC/LYMPHATIC/IMMUNOLOGIC: Negative for prolonged bleeding, bruising easily, and swollen nodes. ENDOCRINE: Negative for cold or heat intolerance, polyuria, polydipsia and goiter. PHYSICAL EXAMINATION: BP 94/56 (BP Site: Right Arm, BP Position: Sitting, BP Cuff Size: Regular Adult) Pulse 66 Ht 162.6 cm (5' 4 ) Wt 56.5 (more content not included)... [facility] 12-22-2021 History of Present illness Narrative Images from the original note were not included. Heart [facility] V[facility] Department of Cardiovascular Medicine SECTION OF PREVENTIVE CARDIOLOGY Cayla Quevedo 12/22/2021 CHIEF COMPLAINT: Patient presents with: CARD New Patient Consult: Hx pre-eclampsia HISTORY OF PRESENT CARDIOVASCULAR ILLNESS: Cayla Quevedo is a 31 year old female who presents for high risk primary prevention, preeclampsia with recent .. -- #1 delivery 10/30/2021 3rd trimester BP's 140/90's, associated with headaches induced @ 37 wks 35-40 lbs weight gain during --home BP's checked in few weeks after delivery, SBP < 120's --chest pain heavy heartbeat , stronger heartbeat 5-6 beats, lasting few seconds not associated with exertion; while seated, in mornings while laying no recent syncope; though multiple episodes age [age], even into college years --diet-- antiinflammatory diet ; decreased caffeine, alcohol, refined sugars Denies shortness of breath, dyspnea on exertion, activity limitations, PND, orthopnea, LE edema CARDIAC RISK FACTORS: Not specified Exercise: More than 5 times per week Family History of CAD: Positive (male<55, female<65) HIIT walking 2 miles up to 5-6 miles Pilates, yoga, barre class cardio 5-6x/week denies limitations to exercise father CAD s/p CABG age 60's PGFa CAD s/p CABG age 55 Avg. Sleep Hours Per Night?: 7 STATIN INTOLERANCE: Adverse Effect History of Statin Intolerance:: No Current Statin Freq: None USE OF PCSK9 INHIBITORS: CARDIOVASCULAR DISEASE HISTORY: Valve Disease: Arrhythmias: HEART FAILURE/CARDIOMYOPATHY: RELATED DISEASE HISTORY: History question Answer Diagnosis Date Comment POTS : Postural orthostatic tachycardia syndrome 2007 suspected POTS, multiple epsiodes of syncope age [age] PAST MEDICAL HISTORY: PAST MEDICAL HISTORY Diagnosis Date Mild pre-eclampsia in third trimester 10/28/2020 NEGATIVE MEDICAL HISTORY Postural orthostatic tachycardia syndrome 2007 suspected POTS, multiple epsiodes of syncope age [age] CURRENT MEDS: Current Outpatient Medications Medication Sig Yeelenad-Gl-Lxr-Fe-FA tab Take 1 tablet by mouth once daily. No current facility-administered medications for this visit. ALLERGIES: ALLERGIES Allergen Reactions Meloxicam Other: See Comments syncope syncope syncope Pseudoephedrine Hcl Other: See Comments palpitations FAMILY HISTORY: FAMILY HISTORY Problem Relation Age of Onset other (Psoriatic Arthritis) Mother Hypertension Father Coronary Artery Disease Father CAD s/p CABG age 60 other (Pulmonary Embolism) Father No Known Problems Sister other (Ovarian Cyst) Sister other (Anemia) Sister other (Endometrosis) Sister Arthritis Maternal Grandmother other (Ovarian Cysts) Maternal Grandmother Kidney Disease Maternal Grandfather Aneurysm Maternal Grandfather Abdominal Alzheimer's Disease Paternal Grandmother Coronary Artery Disease Paternal Grandfather CAD s/p CABG age 55 SOCIAL HISTORY: Lifestyle Employer And Job Title: [employer] ([email or web address] Years Of Education Completed: Not specified Marital Status: to Chris with 1 child Tobacco use in the last year: No Alcohol Use: Yes (Occasionally 1x/ month) REVIEW OF SYSTEMS: positives appear in bold GENERAL:Negative for malaise, significant weight loss or gain and fever HEENT:Negative for frequent or significant headaches, significant changes in vision or vision problems, significant ear problems or hearing loss, nasal discharge or nose bleeds and sore throat, difficulty swallowing, mouth lesions NECK:Negative for lumps, goiter, pain and significant neck swelling RESPIRATORY: Negative for cough, wheezing and shortness of breath CARDIOVASCULAR: Negative for chest pain, leg swelling and palpitations GASTROINTESTINAL: Negative for abdominal discomfort, blood in stools or black stools and change in bowel habits GENITOURINARY: Negative for dysuria, frequency and incontinence MANUFACTURING ASSOCIATE: Negative for abnormal vaginal bleeding, abnormal vaginal discharge and breast symptoms MUSCULOSKELETAL: Negative for joint pain or swelling--fingers, intense burning, pain, back pain, feet pain, and muscle pain. NEUROLOGIC:Negative for focal numbness or weakness, headaches and dizziness. SKIN:Negative for lesions, rash, and itching. PSYCHIATRIC: Negative for sleep disturbance, mood disorder and recent psychosocial stressors. HEMATOLOGIC/LYMPHATIC/IMMUNOLOGIC: Negative for prolonged bleeding, bruising easily, and swollen nodes. ENDOCRINE: Negative for cold or heat intolerance, polyuria, polydipsia and goiter. PHYSICAL EXAMINATION: BP 94/56 (BP Site: Right Arm, BP Position: Sitting, BP Cuff Size: Regular Adult) Pulse 66 Ht 162.6 cm (5' 4 ) Wt 56.5 kg (124 lb 9.6 oz) LMP 12/21/2021 (Exact Date) No BMI 21.39 kg/m Gen: pleasant trim young female, NARD HEENT: PERRL, conj pink, OP benign neck: 2+ carotids, no bruits, JVP 7 chest: CTA B CV: RRR normal S1, S2 abd: soft, NTND, normal BS's ext: no edema; 2+ DP/PT pulses neuro: alert, oriented X 3; normal gait CLINICAL TESTING RESULTS: EKG December 22, 2021 reviewed--NSR 63 sinus arrhythmia, QTc 403 LABS: No results found for: CHOL, HDL, LDL, TG Hemoglobin (g/dL) Date Value 11/07/2020 14.9 Hematocrit (%) Date Value 11/07/2020 44.8 WBC (k/uL) Date Value 11/07/2020 7.08 Platelet Count Date Value Ref Range Status 11/07/2020 246 150 - 400 k/uL Final Creatinine Date Value Ref Range Status 11/19/2020 0.80 0.58 - 0.96 mg/dL Final 11/14/2020 1.36 (H) 0.58 - 0.96 mg/dL Final 11/07/2020 0.69 0.58 - 0.96 mg/dL Final 10/30/2020 0.67 (L) 0.70 - 1.40 mg/dL Final AST Date Value Ref Range Status 11/19/2020 20 13 - 35 U/L Final ALT Date Value Ref Range Status 11/19/2020 25 7 - 38 U/L Final Glucose (mg/dL) Date Value 11/19/2020 77 11/14/2020 88 11/07/2020 88 10/30/2020 83 10/30/2020 98 No results found for: HBA1C TSH Date Value Ref Range Status 08/13/2020 1.160 0.270 - 4.200 uU/mL Final Comment: If the patient is , TSH reference range varies by gestational period: First Trimester (weeks 9-12): 0.180-2.990 mcIU/mL Second Trimester: 0.110-3.980 mcIU/mL Third Trimester: 0.480-4.710 mcIU/mL Hunter Main et al. A Practical Approach for the Verifications and Determination of Site- and Trimester-Specific Reference Intervals for Thyroid Function tests in . Thyroid, 2019:29:3:412-420. Mehrdad Grove et al. 2017 Guidelines of the [place] Thyroid Association for the Diagnosis and Management of Thyroid Disease during and the . Thyroid, 2017:27:3:315-389. No results found for: LPA Interested in learning about research?: Yes PATIENT ENTERED QUESTIONNAIRE SCORES PHQ-9 12/20/2021 Score 3 KRISTEN - 7 SCORES 12/20/2021 KRISTEN-7 Score 0 PROMIS Global Health - (T-Scores - the mean of general population = 50. Five points is a clinically meaningful difference.) 12/10/2021 Physical T-Score 50.8 Mental T-Score 50.8 AMBULATORY PATIENT EDUCATION Topic: Hypertension, Exercise, Nutrition, and Novel Risk Markers Instruction Provided To: Patient Barriers: None Motivation to Learn: Interested Methods of Instruction: Verbal instruction and/or handouts. Patient Leans Best By: Multiple Methods Patient Verbalized: Understanding IMPRESSION: This consultation was requested by Amira Marquez APRN.C*, and my final recommendations will be communicated back to the requesting physician and primary care provider by way of shared medical record or letter summarizing my evaluation. 31 year old female eula (Epuramat) presents on referral from Dr. Marquez for high risk primary prevention, h/o preeclampsia. Pt reported overall good health, though had several episodes of syncope during teen years, attributed to possible POTS. obstetric history --baby #1 delivery 10/30/2021 3rd trimester BP's 140/90's, associated with headaches induced @ 37 wks mild preeclampsia 35-40 lbs weight gain during preeclampsia (10/2021) 11/2021 home BP's checked in few weeks after delivery, SBP < 120's suspected POTS--no recent syncope; though multiple episodes age 16-16, even into college years joint symptoms, evaluation ongoing for possible inflammatory arthritis lipids--2019 OSH labs TC 198/TG 57/HDL 69/LDL 115 untreated lifestyle--diet-- antiinflammatory diet ; decreased caffeine, alcohol, refined sugars. Exercise cardio 5-6x/week The ASCVD Risk score (Gonzalo DK, et al., 2019) failed to calculate for the following reasons: The 2019 ASCVD risk score is only valid for ages 40 to 79 PLAN: reviewed principles of high risk primary prevention (preeclampsia, FHx CAD), importance of lifestyle, role of statin therapy, goal LDL < 100, ideally < 70 reviewed preeclampsia and associated risks for future and future CV risk updated lipids for review no contraindication to future encouraged continued low fat diet, exercise continued workup planned with Rheumatology re: possible inflammatory arthritis RTC prn Benito Rivas MD Department of Cardiovascular Medicine documented in this encounter [facility] 12-17-2021 Note HNO ID: [id number] Author: Yenny Hawk MD Service: ? Author Type: Physician Type: Progress Notes Filed: 12/17/2021 3:27 PM Note Text: Rheumatology CONSULTATION Date of Service: 12/17/2021 Patient: Cayla Quevedo Medical Record: [id number] Primary Care Physician: Araceli Cole NP Last Rheumatology visit: None at [facility] Referring Provider: Amira Marquez [address] [facility] [address] [place] [address] Chief Complaint: Patient presents with: New Patient Cayla Quevedo is here today at request of Dr. Marquez specifically for consultation of my opinion in regards to the chief complaint listed above. Correspondence will be shared today via the [email or web address] electronic health record or through regular mail, where applicable. HISTORY OF PRESENT ILLNESS Cayla Quevedo is a 31 year old White female with a history of preeclampsia, Martinez's palsy, left hip labral tear, family history of psoriatic arthritis, polyarthralgia who presents to rheumatology clinic for evaluation of her ongoing symptoms in the setting of elevated CRP. Today she presents to clinic alone. She states that she had her daughter 10/30/2020 and since that time she has been having issues. She has been having chronic fatigue where it is a struggle to get through her day. She does not have to take a nap every day but some days she would like to. She also has intermittent joint pain notably in her hands, knees, and back. This is associated with significant stiffness particularly in the morning. Her hand pain is described as burning, feeling hot from the inside, and a grinding pain with subjective decreased strength. It is mostly on the second and third MCPs in the interim space between the thumb and the second finger. When she gets flares in her hands episode will last a few days and eventually self resolved. She does not like to use medicine and has not tried NSAIDs. Since her also she also notes that she cannot get her back and pelvis properly aligned. She is following with a chiropractor and noticed lots of cracking in her pelvis with movement. Her low back pain does wake her up at night, improves with exercise, and is associate with significant morning stiffness. She also will intermittently get neck and upper back pain. Overall her symptoms are mild and are rated as a 3 out of 10 at its worst. Regarding her sleep, she sleeps 9 PM to 5 or 6 in the morning most nights. She intermittently wakes up but not every night. She only has issues falling back sleep due to her back stiffness. She wakes up feeling refreshed. She has also noticed other symptoms since having her child. She had persistent diarrhea and eventually this improved when she weaned from breast-feeding. She also noticed oral sores described as water blisters that occur monthly and worse with menstruation. Her skin gets white spots in the sun. She had 1 episode of tongue swelling. She does have significant dry mouth all the time and intermittent dry eye since her episode of Martinez's palsy on the left. She has made significant dietary changes including eliminating refined sugar and grains with improvement in her joint pains. Her feet turn bluish in the cold. She intermittently gets chest heaviness with palpitations. She had 1 episode of 12 hours of persistent [id number] in her hands and feet. She has had 1 , 1 child, no history of miscarriages, no blood clots. They are planning for additional in the next calendar year. Rheumatologic review of systems otherwise negative for fevers, headaches, history of uveitis, sores in her nose, malar rash, photosensitivity, difficulty swallowing, cough, congestion, abdominal pain, constipation, current diarrhea, blood in her urine or stool, rashes, Raynaud's. Pain Evaluation Pain Evaluation 10/31/2020 10/31/2020 11/01/2020 11/01/2020 11/01/2020 Pain Score 3 3 3 3 3 Location Perineal Area Perineal Area Perineal Area Perineal Area Perineal Area Description Sore Sore Sore Sore Sore Duration (#) - - - - - Duration (Timeframe) - - - - - Frequency - - - - - Intervention Medication Reposition;Relaxation Medication;Reposition;Relaxation Relaxation Medication;Reposition;Relaxation PATIENT-ENTERED DATA PROMIS Assessments PROMIS Assessments 12/10/2021 Physical Health Percentile 53 % Mental Health Percentile 53 % Pain Score 4 Pain Interference Percentile 62 % Fatigue Percentile 58 % Physical Function Percentile 79 % RAPID 3 [place] Activities of Daily Living 12/10/2021 9:44 AM Dress self? Without ANY difficulty Get in and out of bed? Without ANY difficulty Walk outdoors? Without ANY difficulty Wash and dry body? Without ANY difficulty Get in and out of car? Without ANY difficulty RAPID 3 Disease Activity Weighed Score Levels: 0 - 1: Near Remission 1.3 - 2.0: Low Severity 2.3 - 4.0: Moderate Severity 4.3 - 10.0: High Severity RAPID-3 Weighed Score 12/10/2021 (more content not included)... [facility] 12-17-2021 History of Present illness Narrative Images from the original note were not included. Rheumatology CONSULTATION Date of Service: 12/17/2021 Patient: Cayla Quevedo Medical Record: [id number] Primary Care Physician: Araceli Cole NP Last Rheumatology visit: None at [facility] Referring Provider: Amira Marquez [address] [facility] [address] [facility] [id number] Chief Complaint: Patient presents with: New Patient Cayla Quevedo is here today at request of Dr. Marquez specifically for consultation of my opinion in regards to the chief complaint listed above. Correspondence will be shared today via the [email or web address] electronic health record or through regular mail, where applicable. HISTORY OF PRESENT ILLNESS Cayla Quevedo is a 31 year old White female with a history of preeclampsia, Martinez's palsy, left hip labral tear, family history of psoriatic arthritis, polyarthralgia who presents to rheumatology clinic for evaluation of her ongoing symptoms in the setting of elevated CRP. Today she presents to clinic alone. She states that she had her daughter 10/30/2020 and since that time she has been having issues. She has been having chronic fatigue where it is a struggle to get through her day. She does not have to take a nap every day but some days she would like to. She also has intermittent joint pain notably in her hands, knees, and back. This is associated with significant stiffness particularly in the morning. Her hand pain is described as burning, feeling hot from the inside, and a grinding pain with subjective decreased strength. It is mostly on the second and third MCPs in the interim space between the thumb and the second finger. When she gets flares in her hands episode will last a few days and eventually self resolved. She does not like to use medicine and has not tried NSAIDs. Since her also she also notes that she cannot get her back and pelvis properly aligned. She is following with a chiropractor and noticed lots of cracking in her pelvis with movement. Her low back pain does wake her up at night, improves with exercise, and is associate with significant morning stiffness. She also will intermittently get neck and upper back pain. Overall her symptoms are mild and are rated as a 3 out of 10 at its worst. Regarding her sleep, she sleeps 9 PM to 5 or 6 in the morning most nights. She intermittently wakes up but not every night. She only has issues falling back sleep due to her back stiffness. She wakes up feeling refreshed. She has also noticed other symptoms since having her child. She had persistent diarrhea and eventually this improved when she weaned from breast-feeding. She also noticed oral sores described as water blisters that occur monthly and worse with menstruation. Her skin gets white spots in the sun. She had 1 episode of tongue swelling. She does have significant dry mouth all the time and intermittent dry eye since her episode of Martinez's palsy on the left. She has made significant dietary changes including eliminating refined sugar and grains with improvement in her joint pains. Her feet turn bluish in the cold. She intermittently gets chest heaviness with palpitations. She had 1 episode of 12 hours of persistent [id number] in her hands and feet. She has had 1 , 1 child, no history of miscarriages, no blood clots. They are planning for additional in the next calendar year. Rheumatologic review of systems otherwise negative for fevers, headaches, history of uveitis, sores in her nose, malar rash, photosensitivity, difficulty swallowing, cough, congestion, abdominal pain, constipation, current diarrhea, blood in her urine or stool, rashes, Raynaud's. Pain Evaluation Pain Evaluation 10/31/2020 10/31/2020 11/01/2020 11/01/2020 11/01/2020 Pain Score 3 3 3 3 3 Location Perineal Area Perineal Area Perineal Area Perineal Area Perineal Area Description Sore Sore Sore Sore Sore Duration (#) - - - - - Duration (Timeframe) - - - - - Frequency - - - - - Intervention Medication Reposition;Relaxation Medication;Reposition;Relaxation Relaxation Medication;Reposition;Relaxation PATIENT-ENTERED DATA PROMIS Assessments PROMIS Assessments 12/10/2021 Physical Health Percentile 53 % Mental Health Percentile 53 % Pain Score 4 Pain Interference Percentile 62 % Fatigue Percentile 58 % Physical Function Percentile 79 % RAPID 3 [place] Activities of Daily Living 12/10/2021 9:44 AM Dress self? Without ANY difficulty Get in and out of bed? Without ANY difficulty Walk outdoors? Without ANY difficulty Wash and dry body? Without ANY difficulty Get in and out of car? Without ANY difficulty RAPID 3 Disease Activity Weighed Score Levels: 0 - 1: Near Remission 1.3 - 2.0: Low Severity 2.3 - 4.0: Moderate Severity 4.3 - 10.0: High Severity RAPID-3 Weighed Score 12/10/2021 RAPID 3 Weighed Score 0.67 (Near Remission (NR)) Review of Systems CONSTITUTION: Negative for: Fever and Recent weight change HEENT: Positive for: Mouth sores and Dry mouth Negative for: Nosebleeds and Trouble swallowing RESPIRATORY: Positive for: Shortness of breath Negative for: Cough and Pain with breathing GASTROINTESTINAL: Negative for: Melena, Diarrhea, Heartburn and Abdominal pain MUSCULOSKELETAL: Positive for: Arthralgias, Joint swelling and Morning Joint Stiffness Negative for: Myalgias and Muscle weakness NEUROLOGICAL: Negative for: Headaches, Numbness and Memory loss SKIN: Negative for: Rash, Skin changes, Hair loss and Nail changes EYES: Positive for: Eye dryness and Visual disturbance Negative for: Eye pain and Eye redness CARDIOVASCULAR: Positive for: Chest pain and Leg swelling GENITOURINARY: Negative for: Dysuria and Hematuria HEMATOLOGIC/LYMPHATIC: Negative for: Swollen glands REVIEW OF SYSTEMS Complete ROS (HEENT, respiratory, cardiology, GI, , skin, psych, hematology, endocrine, neuro, musculoskeletal) negativee except as noted in HPI. PAST MEDICAL HISTORY PAST MEDICAL HISTORY Diagnosis Date Mild pre-eclampsia in third trimester 10/28/2020 NEGATIVE MEDICAL HISTORY PAST SURGICAL HISTORY PAST SURGICAL HISTORY Procedure Laterality Date TOOTH EXTRACTION wisdom teeth FAMILY HISTORY: Multiple family members with blood clots in the past, no known familial coagulopathy Mother with psoriatic arthritis No other known family history of autoimmune disease FAMILY HISTORY Problem Relation Age of Onset other (Psoriatic Arthritis) Mother Hypertension Father Coronary Artery Disease Father Bypass Surgery other (Pulmonary Embolism) Father No Known Problems Sister Arthritis Maternal Grandmother other (Ovarian Cysts) Maternal Grandmother Kidney Disease Maternal Grandfather Aneurysm Maternal Grandfather Abdominal Alzheimer's Disease Paternal Grandmother Coronary Artery Disease Paternal Grandfather Triple Bypass other (Ovarian Cyst) Sister other (Anemia) Sister other (Endometrosis) Sister SOCIAL HISTORY: 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 ALLERGIES ALLERGIES Allergen Reactions Meloxicam Other: See Comments syncope syncope syncope Pseudoephedrine Hcl Other: See Comments palpitations PHYSICAL EXAM VITAL SIGNS: BP 111/77 Pulse 95 Temp (Src) 97.6 (Temporal) Ht 5' 4 (1.63m) Wt 125 lb (56.7kg) LMP 10/28/2021 BMI 21.45 kg/(m^2). GENERAL: Alert and oriented, appears stated age. In no acute distress. EYES: PERRL, EOMI, anicteric sclerae, no conjunctival injection HENT: Normal external examination of the ears and nose, lips, oropharynx and tongue. No oropharyngeal lesions or exudate. No oral or nasal sores. Slightly dry oral mucosa NECK: No mass or asymmetry. No lymphadenopathy RESPIRATORY: Normal respiratory effort. Clear to auscultation bilaterally CARDIOVASCULAR: Regular in rate and rhythm without murmurs, rubs, or gallops ABDOMEN: Soft, nontender, nondistended NEUROLOGIC: No gross focal neurologic deficits. Cranial nerves II-XII grossly intact. SKIN: No rash, thickening, nodules, discoloration. Normal nails. Normal nailfold capillaries. No digital pitting MSK: Normal range of motion, no deformities, no swelling, and no tenderness in the hands, wrists, elbows, shoulders, spine, hips, knees, ankles, feet except as noted below: Bilateral SI joint tenderness No stigmata of long-term inflammatory disease Hypermobile and elbows and back flexion Joint Exam 12/17/2021 Right Left Sacroiliac Tender Tender The following joints were examined and normal: Left Glenohumeral, Right Glenohumeral, Left Elbow, Right Elbow, Left Wrist, Right Wrist, Left MCP 1, Right MCP 1, Left MCP 2, Right MCP 2, Left MCP 3, Right MCP 3, Left MCP 4, Right MCP 4, Left MCP 5, Right MCP 5, Left IP, Right IP, Left PIP 2, Right PIP 2, Left PIP 3, Right PIP 3, Left PIP 4, Right PIP 4, Left PIP 5, Right PIP 5, Cervical Spine, Thoracic Spine, Lumbar Spine, Left Knee, Right Knee, Left Ankle, Right Ankle, Left Tarsometatarsal, Right Tarsometatarsal Joint Exam Data (across time) Joint Exam 12/17/2021 Total Tender 0 Total Swollen 0 LABS Reviewed in [facility], notable for: Uric acid 4.0 Creatinine 0.74 Magnesium 2.5 high Normal LFTs Ferritin 99 CRP 8.73 upper limit normal 3.0 TSH 2.13 Negative thyroid antibodies Vitamin D 48.4 WBC 5.8, hemoglobin 13.3, platelets 217, normal differential UA without blood or protein CBC Latest Ref Rng & Units 10/27/2020 10/28/2020 10/31/2020 11/07/2020 WBC 3.70 - 11.00 k/uL 8.82 9.29 12.66(H) 7.08 HEMOGLOBIN 11.5 - 15.5 g/dL 13.7 14.0 12.8 14.9 HEMATOCRIT 36.0 - 46.0 % 41.6 41.1 38.3 44.8 PLATELETS 150 - 400 k/uL 149(L) 153 119(L) 246 CMP Latest Ref Rng & Units 10/30/2020 11/07/2020 11/14/2020 11/19/2020 SODIUM 136 - 144 mmol/L 133 138 139 138 POTASSIUM 3.7 - 5.1 mmol/L 4.1 4.2 3.9 4.4 CHLORIDE 97 - 105 mmol/L 100 103 102 102 CO2 22 - 30 mmol/L 22(L) 26 26 27 GLUCOSE 74 - 99 mg/dL 83 88 88 77 BUN 7 - 21 mg/dL 10 12 22(H) 12 CREATININE 0.58 - 0.96 mg/dL 0.67(L) 0.69 1.36(H) 0.80 CALCIUM, TOTAL 8.5 - 10.2 mg/dL 8.8 9.6 9.4 9.5 AST 13 - 35 U/L - 40(H) 19 20 ALT 7 - 38 U/L - 59(H) 28 25 ALKALINE PHOSPHATASE 34 - 123 U/L - 149(H) 107 100 Uric Acid Latest Ref Rng & Units 10/27/2020 11/07/2020 URIC ACID 2.5 - 6.6 mg/dL 5.8 5.8 Hepatitis Screen Latest Ref Rng & Units 05/12/2020 HEPCABEIA Negative Negative HBSAG Negative Negative Urinalysis Latest Ref Rng & Units 10/21/2020 10/27/2020 10/28/2020 11/07/2020 PROTEIN, URINE Neg mg/dL + 2,000 - - PROTEIN UA (POCT) Negative mg/dL - - >=300(A) - PROTEIN/CREATININE RATIO <0.2 - 2.2(H) - 3.9(H) IMAGING Reviewed in [facility], notable for: No relevant imaging available for review ASSESSMENT Cayla Quevedo is a 31 year old White female with a history of preeclampsia, Martinez's palsy, left hip labral tear, family history of psoriatic arthritis, polyarthralgia who presents to rheumatology clinic for evaluation of her ongoing symptoms in the setting of elevated CRP. Today she is presenting with multiple symptoms including polyarthralgias of small joints, inflammatory type back pain, tenderness on SI joints, family history of psoriasis, sicca symptoms, Raynaud's versus acrocyanosis, chest pain, hypermobility, numbness tingling. Differential is large and includes Sjogren's, lupus, rheumatoid arthritis, spondyloarthropathy, small fiber neuropathy. It is likely that she has a hypermobility syndrome which can cause joint pain, autonomic dysfunction, GI manifestations, peripheral neuropathy. She could also have osteitis condensans ilii given her recent . However she does have a convincing history for inflammatory back pain potentially with peripheral involvement so we will work her up as below. IMPRESSIONS Diagnoses: (R53.81, R53.83) Malaise and fatigue (primary encounter diagnosis) (R79.82) Elevated C-reactive protein (CRP) (M79.10) Myalgia (M25.50) Polyarthralgia (M54.89) Inflammatory back pain PLAN 1. Labs as x-rays below 2. If work-up negative, would pursue MRI pelvis to evaluate for spondyloarthropathy particularly given family history of psoriatic arthritis 3. Can consider advanced Sjogren's evaluation in the future particularly given her fatigue 4. Can consider additional autonomic dysfunction work-up with [facility], currently symptoms are manageable and she does have upcoming appoint with cardiology given history of preeclampsia 5. Follow-up 1 to 3 weeks to discuss results and next steps Orders this visit: Office Visit on 12/17/21 XR FOOT GENERAL 3V AP/LAT/OBL BILATERAL XR SACROILIAC JOINTS 2V AP PELVIS/FERGUESON XR HAND GENERAL 3V PA/LAT/OBL BILATERAL C-REACTIVE PROTEIN (CRP) SED RATE WESTERGREN COMP METABOLIC PANEL CBC + DIFF PROTEIN ELECT RND UR W/INTERP URINALYSIS WITH MICROSCOPIC, REFLEX CULTURE KAPPA/JONES,FREE,SER PROTEIN ELECTROPHORESIS SERUM W/INTERP IMMUNOFIXATION SCREEN, SERUM LUPUS ANTICOAG PL DNA AB DS + CONF BLD C4 COMPLEMENT BLD C3 COMPLEMENT BLD PROTEIN CREATININE RATIO RIB P PRO IGG AUTOAB ANTI BALAJI ID FERNANDO BY IFA WITH REFLEX RHEUMATOID FACTOR BL CCP ANTIBODY IGG HLA-B27 PCR CONSULT TO RHEUM/IMMUN DISEASE Return in about 2 weeks (around 12/31/2021). I spent a total of 68 minutes on the date of the service which included preparing to see the patient, [id number] patient care, completing clinical documentation, obtaining and/or reviewing separately obtained history, performing a medically appropriate examination, counseling and educating the patient/family/caregiver, and ordering medications, tests, or procedures. This note was partially generated with the assistance of [employer] voice recognition software. An attempt was made to correct any dictation errors however there may be some incorrect words, spellings, and punctuation. ___ Yenny Hawk MD Rheumatology Date: December 17, 2021 Time: 3:07 PM documented in this encounter [facility] 12-17-2021 Instructions Yenny Hawk MD - 12/17/2021 3:02 PM EDT We will do lots of blood tests to look into lupus, Sjogren's, rheumatoid arthritis, spondyloarthritis X rays of hands, feet, low back, we may need MRI of the low back Follow up in 1-3 weeks to discuss results documented in this encounter [facility] 11-10-2021 Note HNO ID: [id number] Author: Amira Marquez APRN.RICCARDO Service: ? Author Type: Orthoptist Type: Progress Notes Filed: 11/14/2021 12:13 PM Note Text: Cayla is a 31 year old who presents for an annual gynecologic exam without complaints. She continues to complain of the same achiness in her hands and other joints as she complained about in her visit. Not well addressed and would like rheum consult for myalgias. 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 Comments: Sexual Activity: Yes; Male Contraception: Condom PAST MEDICAL HISTORY Diagnosis Date Mild pre-eclampsia in third trimester 10/28/2020 NEGATIVE MEDICAL HISTORY PAST SURGICAL HISTORY Procedure Laterality Date TOOTH EXTRACTION wisdom teeth FAMILY HISTORY Problem Relation Age of Onset other (Psoriatic Arthritis) Mother Hypertension Father Coronary Artery Disease Father Bypass Surgery other (Pulmonary Embolism) Father No Known Problems Sister Arthritis Maternal Grandmother other (Ovarian Cysts) Maternal Grandmother Kidney Disease Maternal Grandfather Aneurysm Maternal Grandfather Abdominal Alzheimer's Disease Paternal Grandmother Coronary Artery Disease Paternal Grandfather Triple Bypass other (Ovarian Cyst) Sister other (Anemia) Sister other (Endometrosis) Sister SOCIAL HISTORY Social History Tobacco Use Smoking status: Never Smokeless tobacco: Never Substance Use Topics Alcohol use: Not Currently Comment: Occasionally Drug use: Never REVIEW OF SYSTEMS Abdomen: No abdominal pain, nausea, vomiting, diarrhea, or constipation. No bloating, early satiety, indigestion, or increased flatulence. Bladder: No dysuria, gross hematuria, urinary frequency, urinary urgency, or incontinence. Breast: No breast lumps, nipple d/c, overlying skin changes, redness or skin retraction. Allergies and current medication updated:Yes EXAM: BP 128/68 Ht 5' 4 (1.63m) Wt 124 lb (56.2kg) LMP 10/28/2021 BMI 21.27 kg/(m2). GENERAL: pleasant, female in no apparent distress HEENT: Normocephalic, atraumatic, mucus membranes moist, and no lesions NECK: Supple, full range of motion, no adenopathy, and thyroid normal DERMATOLOGY: Normal, without lesions, non-icteric, and non-hirsute BREAST: soft, non-tender, symmetric, no dominant mass, normal nipple-areolar complex, no lymphadenopathy, and no nipple discharge CHEST: Clear to auscultation, Normal inspiratory effort, Regular rate and rhythm, and No murmurs, clicks, rubs or gallops ABDOMEN: Benign, soft, non-tender, and no masses PELVIC: Deferred BIMANUAL: deferred RECTOVAGINAL: deferred. NEURO: alert and oriented x3,exam grossly non-focal EXTREMITIES: normal ASSESSMENT/PLAN: 1) Health maintenance: Pap/HPV up to date. Nutrition, exercise and routine health maintenance exams reviewed. Calcium/Vitamin D supplementation information provided. 2) Contraception: none. Once source of pain is evaluated, she would like to consider conception. 3) STD screening: Declined STD check. 4) Follow up one year or sooner as needed 5) History of PECSF, so consult preventative cards. 6) Myalgias, so consult rheumatology. Amira Marquez APRN.[facility] 11-10-2021 History of Present illness Narrative Cayla is a 31 year old who presents for an annual gynecologic exam without complaints. She continues to complain of the same achiness in her hands and other joints as she complained about in her visit. Not well addressed and would like rheum consult for myalgias. 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 Comments: Sexual Activity: Yes; Male Contraception: Condom PAST MEDICAL HISTORY Diagnosis Date Mild pre-eclampsia in third trimester 10/28/2020 NEGATIVE MEDICAL HISTORY PAST SURGICAL HISTORY Procedure Laterality Date TOOTH EXTRACTION wisdom teeth FAMILY HISTORY Problem Relation Age of Onset other (Psoriatic Arthritis) Mother Hypertension Father Coronary Artery Disease Father Bypass Surgery other (Pulmonary Embolism) Father No Known Problems Sister Arthritis Maternal Grandmother other (Ovarian Cysts) Maternal Grandmother Kidney Disease Maternal Grandfather Aneurysm Maternal Grandfather Abdominal Alzheimer's Disease Paternal Grandmother Coronary Artery Disease Paternal Grandfather Triple Bypass other (Ovarian Cyst) Sister other (Anemia) Sister other (Endometrosis) Sister SOCIAL HISTORY Social History Tobacco Use Smoking status: Never Smokeless tobacco: Never Substance Use Topics Alcohol use: Not Currently Comment: Occasionally Drug use: Never REVIEW OF SYSTEMS Abdomen: No abdominal pain, nausea, vomiting, diarrhea, or constipation. No bloating, early satiety, indigestion, or increased flatulence. Bladder: No dysuria, gross hematuria, urinary frequency, urinary urgency, or incontinence. Breast: No breast lumps, nipple d/c, overlying skin changes, redness or skin retraction. Allergies and current medication updated:Yes EXAM: BP 128/68 Ht 5' 4 (1.63m) Wt 124 lb (56.2kg) LMP 10/28/2021 BMI 21.27 kg/(m^2). GENERAL: pleasant, female in no apparent distress HEENT: Normocephalic, atraumatic, mucus membranes moist, and no lesions NECK: Supple, full range of motion, no adenopathy, and thyroid normal DERMATOLOGY: Normal, without lesions, non-icteric, and non-hirsute BREAST: soft, non-tender, symmetric, no dominant mass, normal nipple-areolar complex, no lymphadenopathy, and no nipple discharge CHEST: Clear to auscultation, Normal inspiratory effort, Regular rate and rhythm, and No murmurs, clicks, rubs or gallops ABDOMEN: Benign, soft, non-tender, and no masses PELVIC: Deferred BIMANUAL: deferred RECTOVAGINAL: deferred. NEURO: alert and oriented x3,exam grossly non-focal EXTREMITIES: normal ASSESSMENT/PLAN: 1) Health maintenance: Pap/HPV up to date. Nutrition, exercise and routine health maintenance exams reviewed. Calcium/Vitamin D supplementation information provided. 2) Contraception: none. Once source of pain is evaluated, she would like to consider conception. 3) STD screening: Declined STD check. 4) Follow up one year or sooner as needed 5) History of PECSF, so consult preventative cards. 6) Myalgias, so consult rheumatology. Amira Marquez APRN.CNM documented in this encounter [facility] 11-01-2020 Note HNO ID: [id number] Author: Richardson Fan (C-sam) Service: ? Author Type: ? Type: Plan of Care Filed: 11/28/2020 2:23 PM Note Text: PHARMACY BEDSIDE DELIVERY SERVICE Patient Name: Cayla Quevedo The marked outpatient medications were filled and picked up at [facility] Medication List START taking these medications acetaminophen 500 mg tablet Commonly known as: TYLENOL EXTRA STRENGTH Take 2 tablets by mouth every 6 hours as needed for pain. docusate sodium 100 mg capsule Commonly known as: COLACE Take 2 capsules by mouth daily at bedtime. CONTINUE taking these medications BLOOD PRESSURE CUFF Generic drug: Miscellaneous Medical Supply 1 Each twice daily as needed. 1 + 1 ORAL You might also be taking other medications not listed above. If you have questions about any of your other medications, talk to the person who prescribed them or your Primary Care Provider. STOP taking these medications ECOTRIN LOW STRENGTH 81 mg EC tablet Generic drug: aspirin, enteric coated Richardson Fan (C-sam) [facility] 11-01-2020 Note HNO ID: [id number] Author: Niesha Rollins APRN.CNM Service: Obstetrics Author Type: Orthoptist Type: Progress Notes Filed: 11/01/2020 11:09 AM Note Text: Patient working on BF with , plans to discharge home today, has Colace ordered, would like Tylenol for home, not using Motrin due to Pre-eclampsia, will take BP at home bid and follow up in office with RN in a few days, has outpatient appointment as well, all questions answered. Plan of care discussed with: Provider, RN, Patient. Niesha Rollins APRN.CNM [facility] 10-31-2020 Note HNO ID: [id number] Author: Amanda Gonzalez APRN.CNM Service: Obstetrics Author Type: Orthoptist Type: Progress Notes Filed: 10/31/2020 11:37 AM Note Text: OBSTETRICS PROGRESS NOTE SERVICE DATE: October 31, 2020 SERVICE TIME: 11:15 AM ASSESSMENT: 30 year old female who is Day #1 status post Vaginal, Spontaneous delivery with female . Preeclampsia without severe features PLAN: Routine care. Encourage patient to use pain meds. . Control: Natural family planning and condoms Discharge instructions given to patient regarding pelvic rest, bathing, stairs, walking, lifting, driving, and follow-up. Patient expresses understanding. Pt has BP cuff and will take it daily at home. Will call with sustained elevated blood pressures or s/sx pre-eclampsia. Will do BP check in [address] Metcalf consulted regarding baby ASA . Discussed with pt that it is not evidence based to continue it, but there are not contraindications to continuing it either. Plan of care discussed with: Provider, RN, Patient. Anticipate discharge day: PPD #2 SUBJECTIVE: Patient has no current complaints. Tolerating PO intake. Urinating without difficulty. Passing flatus. Pain well controlled with current regimen. Lochia decreasing. Ambulating without difficulty. OBJECTIVE: PHYSICAL EXAM: Heart: RR Lungs: clear to auscultation Breasts: Nipples intact Abdomen: Soft Fundus firm below umbilicus Non-distended Extremities: No calf tenderness LAST VITALS: Pulse BP Resp O2 Sat Temp Pain 59 132/85 16 95 % 36.4 ?C (97.5 ?F) 3 Avg Min Max Vitals (last 12 hours) Flowsheet Row Name Average Min Max BP: Systolic 129.50 127 132 BP: Diastolic 85.50 85 86 Temp 36.6 ?C (97.95 ?F) 36.4 ?C (97.5 ?F) 36.9 ?C (98.4 ?F) Pulse 57.5 56 59 Resp 16 16 16 HT/WT/BMI: Height Weight BMI LABS ABO/RH: 10/28/2020: A POSITIVE RUBELLA: 05/12/2020: 8.66 Index Value HANDH: Hematocrit (%) Date Value 10/31/2020 38.3 10/28/2020 41.1 Hemoglobin (g/dL) Date Value 10/31/2020 12.8 10/28/2020 14.0 Diagnostic tests reviewed for today's visit: Most recent labs SIGNATURE: Elizabeth Fields APN Student PATIENT NAME: Cayla Quevedo DATE: October 31, 2020 TIME: 11:15 AM TEACHING PROVIDER NOTE OF PERSONAL INVOLVEMENT IN CARE: I have personally seen and examined the patient and performed the medical decision-making components. I have reviewed the nurse-senior electrical engineer student documentation and verified the findings in the note as written. Amanda Gonzalez APRN.RICCARDO [facility] 10-30-2020 Note HNO ID: [id number] Author: Lanie Hernandes APRN.[facility] Service: Obstetrics Author Type: Orthoptist Type: Progress Notes Filed: 10/30/2020 7:57 AM Note Text: S: Patient was able to nap with epidural in place. Comfortable with epidural. O: CE 7/100/-1 with bulging bag Pitocin @26 A/P: bulging bag of water was ruptured (likely forebag but patient had SROM earlier in the evening) Placed an IUPC to be able to go up on the Pit safely, which was completed without any complications. Cat 1 tracing Expect vaginal delivery [facility] 10-30-2020 Note HNO ID: [id number] Author: Faith Milan MD Service: Obstetrics Author Type: Physician Type: Progress Notes Filed: 10/30/2020 4:10 AM Note Text: Cayla Quevedo is a 30 year old at 37w1d admitted for IOL for pre-e without severe features. Hyponatremia with NA on admission 129, now 132 on recheck. Will allow sips, NS running 75cc/hr, will monitor. GBS neg. EFW 6.5 lbs. strip reviewed and Cat 1. Patient discussed with team during safety rounds. Continue current plan of care. Faith Milan MD October 30, 2020 4:09 AM [facility] 10-30-2020 Note HNO ID: [id number] Author: Teresita Bowling APRN.HEALTH UNIT COORDINATOR Service: Anesthesiology Author Type: Nurse Hair Mixer Type: Anesthesia Procedure Notes Filed: 10/30/2020 2:44 AM Note Text: ANESTHESIOLOGY PROCEDURE NOTE Epidural Block General Information Procedure Start Time/Medication Administration: 10/30/2020 2:30 AM Patient location during procedure: [facility] room Timeout Performed Pre-procedure: timeout performed Consent Obtained: Yes Patient identity confirmed: arm band, care seo team lead and patient Reason for block: labor epidural Staffing Anesthesiologist: Juan José Cutler MD HEALTH UNIT COORDINATOR: Teresita Bowling APRN.HEALTH UNIT COORDINATOR Performed by: anesthesiologist Preparation Sterility Preparation: hand hygiene performed prior to procedure, surgical cap used, mask used, sterile drape used during line insertion, skin prep agent completely dried prior to procedure Site Prep: Betadine Procedure Details Patient position: sitting Patient monitoring: Pulse OX and NIBP Approach: midline Injection technique: MAE saline Region: lumbar Estimated Interspace: 3-4 Number of Attempts: 1 Needle and Epidural Catheter Needle type: Harmony Needle gauge: 17G Needle length: 3.5 in Needle insertion depth: 4 cm Catheter Catheter type: end hole Catheter size: 19 G Catheter at skin depth: 11 cmTest Dose Response: negative AssessmentBeginning Pain Score: 9/10 Pain Score After Treatment: 2/10 Events: tolerated well without discomfort Comments 1% lidocaine skin localization. Negative CSF, heme, paresthesias. SIGNATURE: Teresita Bowling APRN.HEALTH UNIT COORDINATOR PATIENT NAME: Cayla Quevedo DATE: October 30, 2020 TIME: 2:30 AM CSN: [id number] [facility] 10-30-2020 Note HNO ID: [id number] Author: Faith Milan MD Service: Obstetrics Author Type: Physician Type: Progress Notes Filed: 10/30/2020 12:18 AM Note Text: Cayla Quevedo is a 30 year old at 37w1d admitted for IOL for pre-e without severe features. Hyponatremia with NA on admission 129, now 132 on recheck. Will allow sips, NS running 75cc/hr, will monitor. GBS neg. EFW 6.5 lbs. strip reviewed and Cat 1. Patient discussed with team during safety rounds. Continue current plan of care. Faith Milan MD October 30, 2020 12:18 AM [facility] 10-30-2020 Note HNO ID: [id number] Author: Lanie Hernandes APRN.CNM Service: Obstetrics Author Type: Orthoptist Type: Progress Notes Filed: 10/30/2020 2:23 AM Note Text: Summary: Labor Progress Note OBSTETRICS OXYTOCIN LABOR NOTE SERVICE DATE: October 30, 2020 SERVICE TIME: 12:10 AM Subjective Reports painful contractions, requests epidural., No current vaginal bleeding. and Still leaking fluid. Oxytocin Infusion - If collapsed, click to expand (last 4 hours) Date/Time Action Medication Dose Rate 10/30/20 0130 Rate Verify oxytocin 30 unit in LR 500 mL iv infusion (INDUCTION/AUGMENTATION) (PITOCIN) 22 arturo-units/min 22 mL/hr 10/30/20 0100 Rate Verify oxytocin 30 unit in LR 500 mL iv infusion (INDUCTION/AUGMENTATION) (PITOCIN) 22 arturo-units/min 22 mL/hr 10/30/20 0030 Rate Verify oxytocin 30 unit in LR 500 mL iv infusion (INDUCTION/AUGMENTATION) (PITOCIN) 20 arturo-units/min 20 mL/hr 10/30/20 0000 Rate Verify oxytocin 30 unit in LR 500 mL iv infusion (INDUCTION/AUGMENTATION) (PITOCIN) 20 arturo-units/min 20 mL/hr 10/29/20 2330 Rate Verify oxytocin 30 unit in LR 500 mL iv infusion (INDUCTION/AUGMENTATION) (PITOCIN) 20 arturo-units/min 20 mL/hr 10/29/20 2300 Rate Verify oxytocin 30 unit in LR 500 mL iv infusion (INDUCTION/AUGMENTATION) (PITOCIN) 20 arturo-units/min 20 mL/hr 10/29/20 2230 Rate Verify oxytocin 30 unit in LR 500 mL iv infusion (INDUCTION/AUGMENTATION) (PITOCIN) 20 arturo-units/min 20 mL/hr Objective Last Vitals BP Temp Pulse Resp O2 Sat Pain 140/82 37 ?C (98.6 ?F) 73 14 100 % 8 PHYSICAL EXAM: General: WD, WN Uterus: soft, NT Cervical Exam: See below CERVICAL EXAM: Last Exam Notes: Dilation: 6 (10/30/2022 : Kiersten Solorzano RN) Effacement (%): 100 (10/30/2022 : Kiersten Solorzano RN) Station: -1 (10/30/2022 : Kiersten Solorzano RN) Presentation: Vertex (10/29/20 0100 : Mandie Hinton APRN.CNM) MEMBRANES: Status: Membrane Status: Spontaneous ROM after Labor (10/30/2022 : Kiersten Solorzano RN) Rupture Date: 10/30/20 (10/30/2022 : Kiersten Solorzano RN) Rupture Time: 2129 (10/30/2022 : Kiersten Solorzano RN) Amniotic Fluid Color: Clear (10/30/2022 : Kiersten Solorzano RN) Amniotic Fluid Amount: Small (10/30/2022 : Kiersten Solorzano RN) Additional Findings: None MONITORING Baseline: 145 bpm (10/30/20199 : Kiersten Solorzano RN) Variability: Moderate (6-25 bpm) (10/30/20199 : Kiersten Solorzano RN) Accelerations: Present (10/30/20199 : Kiersten Solorzano RN) Decelerations: Decelerations: None (10/30/20129 : Kiersten Solorzano RN) Contractions: Irregular (10/30/20199 : Kiersten Solorzano RN) Frequency: 2-5 (10/30/20199 : Kiersten Solorzano RN) FHR Category: 1 (10/30/20199 : Kiersten Solorzano RN) FHR CATEGORY: Category I ASSESSMENT/PLAN: 30 year old EGA:37w1d. Oxytocin infusing. Indication for induction of labor for Preeclampsia w/o SF. Continue oxytocin per protocol and place an epidural, place internal monitors and increase pitocin. Hyponatremia - being managed by the laborist, Dr. Milan. LABS Diagnostic tests reviewed for today's visit: Most recent labs and imaging results. Plan of care discussed with: Provider, RN, Patient and Family/Significant Other: Present. SIGNATURE: Lanie Hernandes APRN.CNM PATIENT NAME: Cayla Quevedo DATE: October 30, 2020 TIME: 2:17 AM [facility] 10-29-2020 Note HNO ID: [id number] Author: Lanie Hernandes APRN.CNM Service: Obstetrics Author Type: Orthoptist Type: Progress Notes Filed: 10/29/2020 10:19 PM Note Text: Summary: Labor Progress Note OBSTETRICS OXYTOCIN LABOR NOTE SERVICE DATE: October 29, 2020 SERVICE TIME: 10:15 PM Subjective Has pain with contractions but declines intervention., No current vaginal bleeding. and No current leaking of fluid. Oxytocin Infusion - If collapsed, click to expand (last 4 hours) Date/Time Action Medication Dose Rate 10/29/20 2200 Rate Verify oxytocin 30 unit in LR 500 mL iv infusion (INDUCTION/AUGMENTATION) (PITOCIN) 20 arturo-units/min 20 mL/hr 10/29/20 2130 Rate/Dose Change oxytocin 30 unit in LR 500 mL iv infusion (INDUCTION/AUGMENTATION) (PITOCIN) 20 arturo-units/min 20 mL/hr 10/29/20 2100 Rate Verify oxytocin 30 unit in LR 500 mL iv infusion (INDUCTION/AUGMENTATION) (PITOCIN) 20 arturo-units/min 20 mL/hr 10/29/20 2030 Rate/Dose Change oxytocin 30 unit in LR 500 mL iv infusion (INDUCTION/AUGMENTATION) (PITOCIN) 20 arturo-units/min 20 mL/hr 10/29/20 2000 Rate Verify oxytocin 30 unit in LR 500 mL iv infusion (INDUCTION/AUGMENTATION) (PITOCIN) 18 arturo-units/min 18 mL/hr 10/29/20 1930 Rate Verify oxytocin 30 unit in LR 500 mL iv infusion (INDUCTION/AUGMENTATION) (PITOCIN) 18 arturo-units/min 18 mL/hr 10/29/20 1900 Rate Verify oxytocin 30 unit in LR 500 mL iv infusion (INDUCTION/AUGMENTATION) (PITOCIN) 18 arturo-units/min 18 mL/hr 10/29/20 1830 Rate Verify oxytocin 30 unit in LR 500 mL iv infusion (INDUCTION/AUGMENTATION) (PITOCIN) 18 arturo-units/min 18 mL/hr Objective Last Vitals BP Temp Pulse Resp O2 Sat Pain 133/80 37 ?C (98.6 ?F) 79 16 100 % 7 PHYSICAL EXAM: General: WD, WN Uterus: soft, NT Cervical Exam: Deferred as we will perform AROM soon when RN becomes available. RN currently assisting at another delivery. CERVICAL EXAM: Last Exam Notes: Dilation: 7 (10/29/202012 : Kiersten Solorzano RN) Effacement (%): 100 (10/29/202012 : Kiersten Solorzano RN) Station: 0 (10/29/202012 : Kiersten Solorzano RN) Presentation: Vertex (10/29/20 0100 : Mandie Hinton APRN.CNM) MEMBRANES: Status: Membrane Status: Intact (10/29/20 1350 : Hiwot Ryan RN) Additional Findings: None MONITORING Baseline: 150 bpm (10/29/202199 : Kiersten Solorzano RN) Variability: Moderate (6-25 bpm) (10/29/202199 : Kiersten Solorzano RN) Accelerations: Present (10/29/202199 : Kiersten Solorzano RN) Decelerations: Decelerations: None (10/29/202199 : Kiersten Solorzano RN) Contractions: Regular (10/29/202199 : Kiersten Solorzano RN) Frequency: 2-4 (10/29/202199 : Kiersten Solorzano RN) FHR Category: 1 (10/29/202199 : Kiersten Solorzano RN) FHR CATEGORY: Category I ASSESSMENT/PLAN: 30 year old EGA:37w0d. Oxytocin infusing. Indication for induction of labor for Preeclampsia without severe features. Continue oxytocin per protocol and Discussed B/R/A of AROM with patient and patient agreeable to procedure. Will perform as soon as main RN becomes available as she is currently assisting at another delivery.. LABS Diagnostic tests reviewed for today's visit: No new labs Plan of care discussed with: Provider, RN, Patient and Family/Significant Other: Present. SIGNATURE: Lanie Hernandes APRN.CNM PATIENT NAME: Cayla Quevedo DATE: October 29, 2020 TIME: 10:15 PM [facility] 10-29-2020 Note HNO ID: [id number] Author: Faith Milan MD Service: Obstetrics Author Type: Physician Type: Progress Notes Filed: 10/29/2020 8:19 PM Note Text: Cayla Quevedo is a 30 year old at 37w0d admitted for IOL for pre-e without severe features. Hyponatremia with NA on admission 129, now 132 on recheck. Will allow sips, NS running 75cc/hr, will monitor. GBS neg. EFW 6.5 lbs. strip reviewed and Cat 1. Patient discussed with team during safety rounds. Continue current plan of care. Faith Milan MD October 29, 2020 8:18 PM [facility] 10-29-2020 Note HNO ID: [id number] Author: Faith Milan MD Service: Obstetrics Author Type: Physician Type: Progress Notes Filed: 10/29/2020 4:07 PM Note Text: Cayla Quevedo is a 30 year old at 37w0d admitted for IOL for pre-e without severe features. Hyponatremia with NA on admission 129, now 132 on recheck. Will allow sips, NS running 75cc/hr, will monitor. GBS neg. EFW 6.5 lbs. strip reviewed and Cat 1. Patient discussed with team during safety rounds. Continue current plan of care. Faith Mlian MD October 29, 2020 4:06 PM [facility] 10-29-2020 Note HNO ID: [id number] Author: Lanie Hernandes APRN.CNM Service: Obstetrics Author Type: Orthoptist Type: Progress Notes Filed: 10/29/2020 2:51 PM Note Text: Summary: Labor Progress Note OBSTETRICS OXYTOCIN LABOR NOTE SERVICE DATE: October 29, 2020 SERVICE TIME: 2:00PM Subjective Has pain with contractions but declines intervention., No current vaginal bleeding. and No current leaking of fluid. Patient feeling somewhat tired but coping well overall. Oxytocin Infusion - If collapsed, click to expand (last 4 hours) Date/Time Action Medication Dose Rate 10/29/20 1430 Rate/Dose Change oxytocin 30 unit in LR 500 mL iv infusion (INDUCTION/AUGMENTATION) (PITOCIN) 12 arturo-units/min 12 mL/hr 10/29/20 1400 Rate Verify oxytocin 30 unit in LR 500 mL iv infusion (INDUCTION/AUGMENTATION) (PITOCIN) 10 arturo-units/min 10 mL/hr 10/29/20 1330 Rate Verify oxytocin 30 unit in LR 500 mL iv infusion (INDUCTION/AUGMENTATION) (PITOCIN) 8 arturo-units/min 8 mL/hr 10/29/20 1300 Rate Verify oxytocin 30 unit in LR 500 mL iv infusion (INDUCTION/AUGMENTATION) (PITOCIN) 8 arturo-units/min 8 mL/hr 10/29/20 1230 Rate Verify oxytocin 30 unit in LR 500 mL iv infusion (INDUCTION/AUGMENTATION) (PITOCIN) 8 arturo-units/min 8 mL/hr 10/29/20 1200 Rate/Dose Change oxytocin 30 unit in LR 500 mL iv infusion (INDUCTION/AUGMENTATION) (PITOCIN) 8 arturo-units/min 8 mL/hr 10/29/20 1130 Rate Verify oxytocin 30 unit in LR 500 mL iv infusion (INDUCTION/AUGMENTATION) (PITOCIN) 6 arturo-units/min 6 mL/hr 10/29/20 1100 Rate Verify oxytocin 30 unit in LR 500 mL iv infusion (INDUCTION/AUGMENTATION) (PITOCIN) 6 arturo-units/min 6 mL/hr Objective Last Vitals BP Temp Pulse Resp O2 Sat Pain 136/74 37.3 ?C (99.1 ?F) 72 16 96 % 3 PHYSICAL EXAM: General: WD, WN Cervical Exam: See below CERVICAL EXAM: Last Exam Notes: Dilation: 5 (10/29/20 1350 : Hiwot Ryan RN) Effacement (%): 90 (10/29/20 1350 : Hiwot Ryan RN) Station: -1 (10/29/20 1350 : Hiwot Ryan RN) Presentation: Vertex (10/29/20 0100 : Mandie Hinton APRN.CNM) MEMBRANES: Status: Membrane Status: Intact (10/29/20 1350 : Hiwot Ryan RN) Additional Findings: None MONITORING Baseline: Variability: Accelerations: Decelerations: Contractions: Frequency: FHR Category: FHR CATEGORY: Category I ASSESSMENT/PLAN: 30 year old EGA:37w0d. Oxytocin infusing. Indication for induction of labor for preeclampsia without SF. Continue oxytocin per protocol and consider AROM in 2 hours if no significant progress.. Discussed the general approach of induction with diagnosis of preeclampsia. Patient understands but would like to try increasing pitocin first without AROM and would like to try to unmedicated delivery. Patient wishes to try position changes and have her lapel stitcher come in at this point. Will consider AROM at next check. BP mostly WNL, with some systolic in low 140's. Patient asymptomatic for KRUEGER, vision changes or RUQ pain. LABS Diagnostic tests reviewed for today's visit: Most recent labs and imaging results. Plan of care discussed with: Provider, RN, Patient and Family/Significant Other: Present. SIGNATURE: Lanie Hernandes APRN.CNM PATIENT NAME: Cayla Quevedo DATE: October 29, 2020 TIME: 2:39 PM [facility] 10-29-2020 Note HNO ID: [id number] Author: Faith Milan MD Service: Obstetrics Author Type: Physician Type: Progress Notes Filed: 10/29/2020 12:06 PM Note Text: Cayla Quevedo is a 30 year old at 37w0d admitted for IOL for pre-e without severe features. Hyponatremia with NA on admission 129, now 132 on recheck. Will allow sips, NS running 75cc/hr, will monitor. GBS neg. EFW 6.5 lbs. strip reviewed and Cat 1. Patient discussed with team during safety rounds. Continue current plan of care. Faith Milan MD October 29, 2020 12:04 PM [facility] documented as of this encounter (statuses as of 11/10/2021) [facility]09-01-2021 History of Past illness Narrative* Problem Noted Date Resolved Date Mild preeclampsia 10/29/2020 12/09/2020 Mild pre-eclampsia in third trimester 10/28/2020 12/09/2020 Overview: Preeclampsia without severe features. PCR 2.2 Platelets 149 AST/ALT/uric acid is WNL Mild preeclampsia 10/28/2020 10/28/2020 Encounter for supervision of normal first in second trimester 06/17/2020 10/28/2020 documented as of this encounter (statuses as of 11/14/2021) [facility]09-01-2021 History of Past illness Narrative* Problem Noted Date Resolved Date Mild preeclampsia 10/29/2020 12/09/2020 Mild pre-eclampsia in third trimester 10/28/2020 12/09/2020 Overview: Preeclampsia without severe features. PCR 2.2 Platelets 149 AST/ALT/uric acid is WNL Mild preeclampsia 10/28/2020 10/28/2020 Encounter for supervision of normal first in second trimester 06/17/2020 10/28/2020 documented as of this encounter (statuses as of 12/17/2021) [facility]09-01-2021 History of Past illness Narrative* Problem Noted Date Resolved Date Mild preeclampsia 10/29/2020 12/09/2020 Mild pre-eclampsia in third trimester 10/28/2020 12/09/2020 Overview: Preeclampsia without severe features. PCR 2.2 Platelets 149 AST/ALT/uric acid is WNL Mild preeclampsia 10/28/2020 10/28/2020 Encounter for supervision of normal first in second trimester 06/17/2020 10/28/2020 documented as of this encounter (statuses as of 12/25/2021) [facility]09-01-2021 History of Past illness Narrative* Problem Noted Date Resolved Date Mild preeclampsia 10/29/2020 12/09/2020 Mild pre-eclampsia in third trimester 10/28/2020 12/09/2020 Overview: Preeclampsia without severe features. PCR 2.2 Platelets 149 AST/ALT/uric acid is WNL Mild preeclampsia 10/28/2020 10/28/2020 Encounter for supervision of normal first in second trimester 06/17/2020 10/28/2020 documented as of this encounter (statuses as of 12/30/2021) [facility]09-01-2021 History of Past illness Narrative* Problem Noted Date Resolved Date Mild preeclampsia 10/29/2020 12/09/2020 Mild pre-eclampsia in third trimester 10/28/2020 12/09/2020 Overview: Preeclampsia without severe features. PCR 2.2 Platelets 149 AST/ALT/uric acid is WNL Mild preeclampsia 10/28/2020 10/28/2020 Encounter for supervision of normal first in second trimester 06/17/2020 10/28/2020 documented as of this encounter (statuses as of 01/19/2022) [facility]09-01-2021 NoteHNO ID: [id number] Author: Lanie Hernandes APRN.CNM Service: Obstetrics Author Type: Orthoptist Type: Progress Notes Filed: 10/29/2020 9:28 AM Note Text: OBSTETRICS INTRAPARTUM PROGRESS NOTE SERVICE DATE: October 29, 2020 SERVICE TIME: 9:26 AM Subjective Patient with no complaints., No current vaginal bleeding. and No current leaking of fluid. Objective Temp Min/Max Last 12 Hrs Pre Delivery: Temp Min: 36.8 ?C (98.2 ?F) Min taken time: 10/29/20 0009 Max: 36.9 ?C (98.4 ?F) Max taken time: 10/29/20 0451 Last Pulse/Resp/O2/Temp: Pulse Resp O2 Sat Temp 66 16 100 % 36.9 ?C (98.4 ?F) BP Trend (last 4 values) 10/29/20 0507 10/29/20 0625 10/29/20 0715 10/29/20 0824 BP: 120/69 113/70 121/71 125/71 Pain Score Trend (last 4 values) 10/29/20 0507 10/29/20 0625 10/29/20 0715 10/29/20 0824 Pain Level: 0 0 0 0 PHYSICAL EXAM: General: WD, WN Abdomen: soft, nontender, no masses Uterus: soft, NT Cervical Exam: Deferred for now - guzman has come out recently and patient not ha much Cervical Exam Trend (last 4 values) 10/28/20 1847 10/29/20 0100 Dilation: 2 2 Effacement (%): 80 80 Station: -1 -1 Presentation: Vertex Vertex Membranes: Membrane Status: Intact Total ROM Time: rupture date or rupture time have not been documented Additional Findings: None Monitoring: Baseline: 140 bpm (10/29/20899 : Hiwot Ryan RN) Variability: Moderate (6-25 bpm) (10/29/20899 : Hiwot Ryan RN) Accelerations: Present (10/29/20899 : Hiwot Ryan RN) Decelerations: Decelerations: None (10/29/20899 : Hiwot Ryan RN) Contractions: Irregular (10/29/20899 : Hiwot Ryan RN) Frequency: 2-5 (10/29/20899 : Hiwot Ryan RN) NST Interpretation: FHR Category: 1 (10/29/20899 : Hiwot Ryan RN) Labs: Diagnostic tests reviewed for today's visit: Most recent labs and imaging results. Assessment/Plan 30 year old EGA:37w0d. Admitted for induction of labor for Pre-Eclampsia. Without SF FHR Category: Category I Patient Active Hospital Problem List: Mild pre-eclampsia in third trimester (10/28/2020) ? Continue present management ? Pitocin: Continue oxytocin per protocol Plan of care discussed with: Provider, RN, Patient and Family/Significant Other: Present. SIGNATURE: Lanie Hernandes APRN.CNM PATIENT NAME: Cayla Quevedo DATE: October 29, 2020 TIME: 9:26 [facility]09-01-2021 NoteHNO ID: [id number] Author: Mandie Hinton APRN.CNM Service: Obstetrics Author Type: Orthoptist Type: Progress Notes Filed: 10/29/2020 4:02 AM Note Text: Patient is resting. Pain is tolerable, uncomfortable EFM Category 1, Contractions 2-4 minutes - Miso #2 to be given buccal by RN. - BP remains stable, no severe range, no IV medications during stay. - Continue present mgmt Mandie Hinton APRN.[facility]09-01-2021 NoteHNO ID: [id number] Author: Mandie Hinton APRN.CNM Service: Obstetrics Author Type: Orthoptist Type: Progress Notes Filed: 10/29/2020 1:18 AM Note Text: CNM Intrapartum Progress Note 1:10 AM S: Cayla and Chris ready for IOL to begin. Questions asked and answered as appropriate. Has opted for CRB and miso IOL. Some cramping, no LOF, VB. O: BP 109/60 Pulse 69 Temp 36.6 ?C (97.9 ?F) (Oral) Resp 16 LMP 02/13/2020 (Exact Date) SpO2 100% 10/28/20 1847 Dilation: 2 Effacement (%): 80 Station: -1 Presentation: Vertex SVE characteristics: soft, mid. Membranes intact FHTs Category 1 Ctx every 2-10 minutes. Palpate mild A / P: IUP at 37w0d, IOL PEC w/o SF IOL - BPs remain stable, WNL, no severe range noted. - CRB placed 70cc vaginal / 70cc uterine. - Miso #1, 25mcg, per vagina. If CRB not expelled at next interval of change, plan for 25mg buccal - Rest encouraged. Position changes and calvillo medication as indicated. Mandie Hinton APRN.[id number] NoteHNO ID: [id number] Author: Ashley Foley RN Service: Nursing Author Type: Registered Nurse Type: Procedures Filed: 10/28/2020 6:56 PM Note Text: Attestation signed by Amira Castillo APRN.CNM at 10/28/2020 7:08 PM I personally saw this pt and reviewed the tracing, category 1. Amira Castillo APRN.CNM OBSTETRICS NST SUMMARY SERVICE DATE: October 28, 2020 The patient is a 30 year old female, , who is at 36w6d with an AIME of 11/19/2020, by Last Menstrual Period dating method. NST OBJECTIVE FINDINGS PER NURSE: Start Time: 1816 (10/28/201846 : Ashley Foley, RN) Complete Time: 1846 (10/28/201846 : Ashley Foley, DAVE) Indications: Other: Comment (high BP high protein) (10/28/201846 : Ashley Foley RN) Patient Reason For: Check baby (10/28/201846 : Ashley Foley RN) NST Explanation: Procedure Explained;Monitor Explained;Verbalizes Understanding (10/28/201846 : Ashley Foley RN) Acoustic Stimulator: No (10/28/201846 : Ashley Foley RN) Interventions: MONITORING/ASSESSMENT: Baseline: 140 bpm (10/28/201846 : Ashley Foley RN) Variability: Moderate (6-25 bpm) (10/28/201846 : Ashley Foley RN) Accelerations: Present (10/28/201846 : Ashley Foley RN) Decelerations: Decelerations: None (10/28/201846 : Ashley Foley RN) Contractions: Irregular (10/28/201846 : Ashley Foley RN) Frequency: 5-6 (10/28/201846 : Ashley Foley RN) Above information forwarded to Gurdeep Castillo cnm (10/28/201846 : Ashley Foley RN) for final review and interpretation. SIGNATURE: Ashley Foley RN PATIENT NAME: Cayla Quevedo DATE: October 28, 2020 TIME: 6:55 [facility] + Plan note No data available for this section [facility] Evaluation note* Diagnosis History of pre-eclampsia- Primary Personal history of other genital system and obstetric disorders documented in this encounter [facility] note* Diagnosis Encounter for gynecological examination (general) (routine) without abnormal findings- Primary History of pre-eclampsia Personal history of other genital system and obstetric disorders Elevated C-reactive protein (CRP) Myalgia Mylagia and myositis, unspecified documented in this encounter [facility] note* Diagnosis Malaise and fatigue- Primary Other malaise and fatigue Elevated C-reactive protein (CRP) Myalgia Mylagia and myositis, unspecified Polyarthralgia Pain in joint, multiple sites Inflammatory back pain documented in this encounter [facility] note* Diagnosis Elevated C-reactive protein (CRP) Polyarthralgia Pain in joint, multiple sites Inflammatory back pain [facility] Diagnosis 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) Genetic susceptibility to other disease Abnormal urine findings Other nonspecific finding on examination of urine Disorder of bone Disorder of bone and cartilage, unspecified [facility] Diagnosis Palpitations- Primary History of pre-eclampsia Personal history of other genital system and obstetric disorders documented in this encounter [facility] Discharge instructions No data available for this section [facility] Progress note No data available for this section [facility] Reason for referral (narrative)* Outpatient Procedure (Routine) - Authorized Specialty Diagnoses / Procedures Referred By Dragan t Referred To Contact [facility] Diagnoses History of pre-eclampsia Procedures ECG COMPLETE ECG ROUTINE ECG W/LEAST 12 LDS W/I&R Benito Rivas MD [address] [place] [address] [facility] [address] [place] [address] Referral ID Status Reason Start Date Expiration Date Visits Requested Visits Authorized [id number] Authorized Auto-Generat ed Referral 11/10/2021 11/10/2022 1 1 [facility] for referral (narrative)* Diagnostic Procedure Only (Routine) - Pending Review Specialty Diagnoses / Procedures Referred By Contac t Referred To Contact XR IMAGING Diagnoses Polyarthralgia Procedures XR HAND GENERAL 3V PA/LAT/OBL BILATERAL RADEX HAND MINIMUM [address] [place] [address] [place] [address] Xr Imaging Referral ID Status Reason Start Date Expiration Date Visits Requested Visits Authorized [id number] Pending Review Auto-Generat ed Referral 2 01/16/2023 1 1 * Molecular Testing (Routine) - Authorized Specialty Diagnoses / Procedures [facility] To Contact MOLECULAR & FUNCTIONAL IMAGING Diagnoses Elevated C-reactive protein (CRP) Polyarthralgia Inflammatory back pain Procedures HLA-B27 PCR HLA I LOW RESOLUTION ONE [place] [address] [place] [address] Molecular [facility] Functional Imaging [address] [place] [address] Referral ID Status Reason Start Date Expiration Date Visits Requested Visits Authorized [id number] Authorized PCP Requested Referral Auto-Generate d Referral 2 03/17/2022 1 1 * Diagnostic Procedure Only (Routine) - Pending Review Specialty Diagnoses / Procedures [facility] Referred To Contact XR IMAGING Diagnoses Elevated C-reactive protein (CRP) Polyarthralgia Inflammatory back pain Procedures XR SACROILIAC JOINTS 2V AP PELVIS/FERGUESON RADIOLOGIC EXAMINATION SACROILIAC JNTS <3 [place] [address] [place] [address] Xr Imaging Referral ID Status Reason Start Date Expiration Date Visits Requested Visits Authorized [id number] Pending Review Auto-Generat ed Referral 2 01/16/2023 1 1 * Diagnostic Procedure Only (Routine) - Pending Review Specialty Diagnoses / Procedures [facility] Referred To Contact XR IMAGING Diagnoses Elevated C-reactive protein (CRP) Polyarthralgia Inflammatory back pain Procedures XR FOOT GENERAL 3V AP/LAT/OBL BILATERAL RADEX FOOT COMPLETE MINIMUM 3 [place] [address] [place] [address] Xr Imaging Referral ID Status Reason Start Date Expiration Date Visits Requested Visits Authorized [id number] Pending Review Auto-Generat ed Referral 2 01/16/2023 1 1 [facility] for referral (narrative)* Diagnostic Procedure Only (Routine) - Closed Specialty Diagnoses / Procedures Referred By Contac t Referred To Contact XR IMAGING Diagnoses Polyarthralgia Procedures XR HAND GENERAL 3V PA/LAT/OBL BILATERAL RADEX HAND MINIMUM [address] [place] [address] [place] [address] Xr Imaging Referral ID Status Reason Start Date Expiration Date V isits Requested Visits Authorized [id number] Closed Auto-Generate d Referral 12/17/2021 01/16/2023 1 1 * Diagnostic Procedure Only (Routine) - Closed Specialty Diagnoses / Procedures Referred By Contac t Referred To Contact XR IMAGING Diagnoses Elevated C-reactive protein (CRP) Polyarthralgia Inflammatory back pain Procedures XR SACROILIAC JOINTS 2V AP PELVIS/FERGUESON RADIOLOGIC EXAMINATION SACROILIAC JNTS <3 [place] [address] [place] [address] Xr Imaging Referral ID Status Reason Start Date Expiration Date V isits Requested Visits Authorized [id number] Closed Auto-Generate d Referral 12/17/2021 01/16/2023 1 1 * Diagnostic Procedure Only (Routine) - Closed Specialty Diagnoses / Procedures Referred By Contac t Referred To Contact XR IMAGING Diagnoses Elevated C-reactive protein (CRP) Polyarthralgia Inflammatory back pain Procedures XR FOOT GENERAL 3V AP/LAT/OBL BILATERAL RADEX FOOT COMPLETE MINIMUM 3 [place] [address] [place] [address] Xr Imaging Referral ID Status Reason Start Date Expiration Date V isits Requested Visits Authorized [id number] Closed Auto-Generate d Referral 12/17/2021 01/16/2023 1 1 [facility] Diagnostic Procedure Only (Routine) - Closed Specialty Diagnoses / Procedures Referred By Contac t Referred To Contact XR IMAGING Diagnoses Elevated C-reactive protein (CRP) Polyarthralgia Inflammatory back pain Procedures XR SACROILIAC JOINTS 2V AP PELVIS/FERGUESON RADIOLOGIC EXAMINATION SACROILIAC JNTS <3 [place] [address] [place] [id number] Xr Imaging Referral ID Status Reason Start Date Expiration Date V isits Requested Visits Authorized [id number] Closed Auto-Generate d Referral 12/17/2021 01/16/2023 1 1 [facility] Summary Purpose Family History No Family History Records FoundNo Family History Records FoundNo Family History Records Found No data available for this section No Family History Records Found No data available for this section Advance Directives No Advanced Directives Records FoundNo Advanced Directives Records FoundNo Advanced Directives Records FoundNo Advanced Directives Records Found Reason for Referral Specialty Diagnoses / Procedures Referred By Contac t Referred To Contact Rheumatology Diagnoses Elevated C-reactive protein (CRP) Myalgia Procedures CONSULT TO RHEUM/IMMUN DISEASE OFFICE/OUTPATIENT [facility] 60-74 MINUTES Amira Marquez, RADIATION PROTECTION SPECIALIST.CN [address] [place] [address] Referral ID Status Reason Start Date Expiration Date Visits Requested Visits Authorized [id number] Authorized PCP Requested Referral 11/10/2021 11/10/2022 1 1 Specialty Diagnoses / Procedures Referred By Contac t Referred To Contact Diagnoses History of pre-eclampsia Procedures CONSULT TO PREVENTIVE CARD OFFICE/OUTPATIENT [facility] 60-74 MINUTES Amira Marquez, RADIATION PROTECTION SPECIALIST.CNCaryl [address] [place] [id number] Referral ID Status Reason Start Date Expiration Date Visits Requested Visits Authorized [id number] Authorized PCP Requested Referral 11/10/2021 11/10/2022 1 1 Specialty Diagnoses / Procedures Referred By Contac t Referred To Contact MR IMAGING Diagnoses Spondyloarthritis HLA B27 (HLA B27 positive) Disorder of bone Procedures MRI PELVIS ORTHO GENERAL WO/W IVCON MRI ANY JT LOWER EXTREM W/O & [place] [address] [place] [phone] Mr Imaging Referral ID Status Reason Start Date Expiration Date Visits Requested Visits Authorized [id number] Pending Review Auto-Generat ed Referral 12/30/2021 01/29/2023 1 1 Additional Source Comments INFORMATION SOURCE (unrecogn ized section and content) DATE CREATED AUTHOR AUTHOR'S ORGANIZ ATION 01/01/2022 [facility] DATE CREATED AUTHOR AUTHOR'S ORGANIZ ATION 01/19/2022 [facility] DATE CREATED AUTHOR AUTHOR'S ORGANIZ ATION 02/28/2023 [facility] ([place]) Source Comments (unrecognize d section and content) In the event this informatio n is protected by the Federal Confidentiality of Alcohol and Drug Abuse Patient Records regulations: The Federal rules restrict any use of the information to criminally investigate or prosecute any alcohol or drug abuse patient.[facility] the event this information is protected by the Federal Confidentiality of Alcohol and Drug Abuse Patient Records regulations: The Federal rules restrict any use of the information to criminally investigate or prosecute any alcohol or drug abuse patient.[facility] the event this information is protected by the Federal Confidentiality of Alcohol and Drug Abuse Patient Records regulations: The Federal rules restrict any use of the information to criminally investigate or prosecute any alcohol or drug abuse patient.[facility] the event this information is protected by the Federal Confidentiality of Alcohol and Drug Abuse Patient Records regulations: The Federal rules restrict any use of the information to criminally investigate or prosecute any alcohol or drug abuse patient.[facility] the event this information is protected by the Federal Confidentiality of Alcohol and Drug Abuse Patient Records regulations: The Federal rules restrict any use of the information to criminally investigate or prosecute any alcohol or drug abuse patient.[facility] the event this information is protected by the Federal Confidentiality of Alcohol and Drug Abuse Patient Records regulations: The Federal rules restrict any use of the information to criminally investigate or prosecute any alcohol or drug abuse patient.[facility] Reason for Visit (unrecogniz ed section and content) Reason Comments New Patient Specialty Diagnoses / Procedures Referred By Contac t Referred To Contact Rheumatology Diagnoses Elevated C-reactive protein (CRP) Myalgia Procedures CONSULT TO RHEUM/IMMUN DISEASE OFFICE/OUTPATIENT NEW HIGH MDM 60-74 MINUTES Amira Marquez APRN.[facility] [address] [facility] [address] [place] [address] Referral ID Status Reason Start Date Expiration Date V isits Requested Visits Authorized [id number] Closed PCP Requested Referral 11/10/2021 11/10/2022 1 1 Reason Comments Back Pain Reason Comments CARD New Patient Consult Hx pre-eclampsi a Specialty Diagnoses / Procedures Referred By Contac t Referred To Contact Diagnoses History of pre-eclampsia Procedures CONSULT TO PREVENTIVE CARD OFFICE/OUTPATIENT NEW HIGH MDM 60-74 MINUTES Amira Marquez APRN.CN [address] [facility] [address] [place] [address] Referral ID Status Reason Start Date Expiration Date V isits Requested Visits Authorized [id number] Closed PCP Requested Referral 11/10/2021 11/10/2022 1 1 Care Teams (unrecognized sec tion and content) Care Team Personnel Name: SAJAN STEVENSON MD Member Role: OBGYN Address: Address: [address] [address]- [place] Name: ARACELI COLE APRN-BRANCH MAKER Position: P4 Advanced Supervisor Unloading Member Role: Primary Care Physician Address: Address: [address] [place] [address] Care Team Related Persons Name: CHRIS QUEVEDO Beverage Inspection 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 Tender Relationship Specialty Start Date End Date Araceli Cole (It Account Manager) [address] [place] [phone] PCP - General Internal Medicine 12/17/21 Benito Rivas MD [address] [place] [address] Primary Staff Physician Cardiology 12/22/21 Beverage Inspection Machine Tender Relationship Specialty Start Date End Date Araceli Cole (It Account Manager) [address] [place] [phone] PCP - General Internal Medicine 12/17/21 Benito Rivas MD [address] [place] [address] Primary Staff Physician Cardiology 12/22/21 Beverage Inspection Machine Tender Relationship Specialty Start Date End Date Araceli Cole Etelvina (It Account Manager) [address] [place] [phone] PCP - General Internal Medicine 12/17/21 Benito Rivas MD [address] [facility] [place] [address] Primary Staff Physician Cardiology 12/22/21 FOR RECORDS PERTAINING TO PATIENTS WHO ARE OR HAVE BEEN ENROLLED IN A CHEMICAL DEPENDENCY/SUBSTANCEABUSE PROGRAM, SOME INFORMATION MAY BE OMITTED. This clinical summary was aggregated from multiple sources. Caution should be exercised in using it in the provision of clinical care. This summary normalizes information from multiple sources, and as a consequence, information in this document may materially change the coding, format and clinical context of patient data. In addition, data may be omitted in some cases. CLINICAL DECISIONS SHOULD BE BASED ON THE PRIMARY CLINICAL RECORDS. [employer] provides no warranty or guarantee of the accuracy or completeness of information in this document.
[2023-03-08 13:40] LABS: Vitamin B12 698 pg/mL (211-911)
== END | disposition home or self-care (01) ==
PROVIDERS: PCP Nurse Practitioner Family; Referring Provider Obstetrics & Gynecology; Visit Provider Obstetrics & Gynecology
DX: N93.9 Abnormal uterine and vaginal bleeding, unspecified (principal); R23.0 Cyanosis
CPT/HCPCS: 36415; 82607; 82627; 84146; 84443; 85025; 82626

== ENCOUNTER → 2023-03-09 | Outpatient (CLI) | payer BC, SELFPAY ==
--- OUTSIDE RECORDS SUMMARY | 2023-03-09 09:44 | XMS RPT_ITS | CCD ---
Author Name Unknown Address [address] [place] [address] Organization [facility] Care Team Providers Care Global Account Manager Name Role Phone Unavailable Primary Care Provider Araceli Chambers (Internet Specialist) Primary Care Provider [phone] Laci COSBY, Benito Unavailable YENNY HAWK Referring Unavailable ARACELI COLE (HEALTH SAFETY SPECIALIST) Primary Care UnavailARACELI Levy (HEALTH SAFETY SPECIALIST) Primary Care UnavailYENNY Holman Referring Unavailable Araceli Cole (Internet Specialist) Primary Care Provider [phone] Benito Rivas MD Unavailable BENITO RIVAS Attending Unavailable AMIRA MARQUEZ Referring Unavailable ARACELI COLE (HEALTH SAFETY SPECIALIST) Primary Care UnavailYENNY Holman Attending Unavailable ARACELI COLE (HEALTH SAFETY SPECIALIST) Primary Care UnavailAMIRA Noble Attending Unavailable YENNY HAWK Attending Unavailable AMIRA MARQUEZ Referring Unavailable BENITO RIVAS Referring Unavailable ARACELI COLE (HEALTH SAFETY SPECIALIST) Primary Care ARACELI Johnson Primary Care Physician ARACELI PARKS Attending ARACELI Rodrigues Primary Care ARACELI Rodrigues Attending ARACELI Rodrigues Primary Care Sadiavai labtoby Allergies Allergy Classification Reported Allergen(s) Allergy Type Date of Onset Reaction(s) Facility (8 sources) meloxicam; Translations: [MELOXICAM] Drug Allergy 03-07-2019 Other: See Comments [facility] Work Phone: (8 sources) Pseudoephedrine; Translations: [PSEUDOEPHEDRINE HCL] Drug Allergy 12-08-2017 Other: See Comments [facility] Work Phone: Medications Current Medications Medication Drug [...] 56 mm[Hg] Benito Rivas MD Work Phone: [facility] 12-22-2021 09:48-0400 Heart rate 66 /min Benito Rivas MD Work Phone: [facility] 12-22-2021 09:48-0400 Systolic blood pressure 94 mm[Hg] Benito Rivas MD Work Phone: [facility] 12-22-2021 09:41-0400 Body height 162.6 cm Benito Rivas MD Work Phone: [facility] 12-22-2021 09:41-0400 Body weight 56.52 kg Benito Rivas MD Work Phone: [facility] 12-17-2021 14:26-0400 Body height 162.6 cm Yenny Hawk MD Work Phone: [facility] 12-17-2021 14:26-0400 Body temperature 97.59 [degF] Yenny Hawk MD Work Phone: [facility] 12-17-2021 14:26-0400 Body weight 56.7 kg Yenny Hawk MD Work Phone: [facility] 12-17-2021 14:26-0400 Diastolic blood pressure 77 mm[Hg] Yenny Hawk MD Work Phone: [facility] 12-17-2021 14:26-0400 Heart rate 95 /min Yenny Hawk MD Work Phone: [facility] 12-17-2021 14:26-0400 Systolic blood pressure 111 mm[Hg] Yenny Hawk MD Work Phone: [facility] 11-10-2021 10:41-0400 Body height 162.6 cm Amiragregory Marquez APRN.CNM Work Phone: [facility] 11-10-2021 10:41-0400 Body weight 56.25 kg Amiragregory Marquez BARK PRESS OPERATOR.CNM Work Phone: [facility] 11-10-2021 10:41-0400 Diastolic blood pressure 68 mm[Hg] Amiragergory Duqueson BARK PRESS OPERATOR.CNM Work Phone: [facility] 11-10-2021 10:41-0400 Systolic blood pressure 128 mm[Hg] Amira Marquez BARK PRESS OPERATOR.CNM Work Phone: [facility] Encounters Encounter Date Encounter Type Care Provider Facility Start: 02-24-2023 End: 03-01-2023 ambulatory ARACELI COLE APRN-DUST SAMPLER Facility:B Start: 02-24-2023 End: 02-28-2023 Outreach Lab ARACELI COLE BARK PRESS OPERATORANA MARÍA [facility] Start: 12-28-2022 End: 12-29-2022 ambulatory ARACELI COLE BARK PRESS OPERATOR-DUST SAMPLER Facility:B Start: 12-28-2022 End: 12-28-2022 Patient encounter procedure ARACELI COLE BARK PRESS OPERATORANA MARÍA [facility] Start: 12-30-2021 End: 12-30-2021 [facility] Yenny Hawk MD Work Phone: Rheumatology Procedures Date Procedure Procedure Detail Performing Clinician Start: 02-28-2022 Dilation and curetta ge of uterus ARACELI COLE ALEC Start: 10-28-2020 Antibody screen Plan of Treatment Date Care Activity Detail Author Start: 08-26-2030 Urine microalbumin profile DTAP,TDAP,TD (8 - Td or Tdap) [facility] Start: 04-27-2024 PAP TESTING PAP TESTING [facility] Start: 12-30-2021 End: 03-01-2022 Protein/Creatinine [Mass Ratio] in Urine PROTEIN CREATININE RATIO Lab Routine Abnormal urine findings Expected: 12/30/2021, Expires: 03/01/2022 [facility] Work Phone: Immunizations Immunization Date Immunization Notes Care Provider Sivakumar barnes 12-26-2020 SARS-CoV-2 mRNA (tozinameran) vaccine ARACELI COLE BARK PRESS OPERATOR-DUST SAMPLER [facility] [place] Payers Date Payer Category Payer Unknown LILIANE LON MARTINEZ PPO [id number] 2020-Present [phone] [address] [place] [address] PPO [id number] 2020 Unknown [id number] 1990 Unknown [id number] 1990 Unknown [id number] Social History Date Type Detail Facility Start: 11-10-2021 End: 11-30-2022 Tobacco smoking status NHIS Never smoked tobacco [facility] Start: 11-10-2021 Tobacco use and exposure Smokeless tobacco non-user [facility] Start: 11-10-2021 Alcohol intake Ex-drinker (finding) [facility] Start: 12-26-2018 History SDOH Alcohol Comment Occasionally [facility] Start: 1990 Sex Assigned At Female C [facility] Start: 10-31-2021 End: 12-24-2021 Exposure to SARS-CoV-2 (event) Not sure [facility] Start: 12-22-2021 Alcohol intake Current drinke r of alcohol (finding) [facility] Start: 12-22-2021 Alcohol Comment Occasionally 1x/ mon th [facility] Sex Assigned At Sex [facility] Clinical Notes 10-28-2020 to 02-26-2023 Yenny [...] Locations *1: This test was performed at: [facility], [address] [place] [address], [facility] , [facility] ([place]) 12-30-2021 Note HNO ID: [id number] Author: Yenny Hawk MD Service: ? Author Type: Physician Type: Progress Notes Filed: 12/30/2021 10:28 AM Note Text: Rheumatology FOLLOW UP VISIT Date of Service: 12/30/2021 Patient: Cayla Quevedo Medical Record: [id number] Primary Care Physician: Araceli Cole NP Last [...] went on a hiking trip in the [facility] and had no back pain and [...] 1 episode of 12 hours of persistent csat-qmj-upovyfi in her hands and feet. She has [...] Medication;Reposition;Relaxation Relaxation Medication;Reposit (more content not included)... [facility] 12-30-2021 History of Present illness Narrative Images from the original note were not included. Rheumatology FOLLOW UP VISIT Date of Service: 12/30/2021 Patient: Cayla Quevedo Medical Record: [id number] Primary Care Physician: Araceli Cole NP Last [...] went on a hiking trip in the [facility] and had no back pain and [...] 1 episode of 12 hours of persistent wcox-dsq-ribvagx in her hands and feet. She has [...] in the MR contrast administration guidelines link Aoiguchu-Ux-Slm-Fe-FA tab Take 1 tablet by mouth once [...] DNA ANTIBODY W/CONFIRMATION <30 IU/mL <12 <[address] MESSENGER ANTIBODY QUAL Negative Negative Negative SSA ANTIBODY QUAL Negative Negative Negative JUNIOR-1 ANTIBODY, IGG <1.0 AI <0.2 <0.2 JUNIOR 1 ANTIBODY QUAL Negative Negative Negative RIBOSOMAL COURT MESSENGER AB <1.0 AI <0.[address] MESSENGER QUAL Negative Negative Negative ANTI-SSA <1.0 AI [...] after MRI is done Orders this visit: [facility] on 12/30/21 MRI PELVIS ORTHO GENERAL WO/W [...] was partially generated with the assistance of [employer] voice recognition software. An attempt was made to correct any dictation errors however there may be some incorrect words, spellings, and punctuation. ___ Yenny aHwk MD Rheumatology Date: December 30, 2021 Time: 10:01 AM documented in this encounter [facility] 12-24-2021 Note HNO ID: [id number] Author: YEHUDA Bae Service: Radiology Author Type: [...] YEHUDA Bae December 24, 2021 10:10 AM [facility] 12-24-2021 History of Present illness Narrative Radiology [...] 2021 10:10 AM documented in this encounter [facility] 12-22-2021 Note HNO ID: [id number] Author: Benito Rivas MD Service: ? Author Type: Physician Type: Progress Notes Filed: 01/18/2022 10:37 PM Note Text: [facility] [place] Tiffany Umana Department of Cardiovascular Medicine SECTION [...] CURRENT MEDS: Current Outpatient Medications Medication Sig Gwrdqnkp-Yp-Mbc-Fe-FA tab Take 1 tablet by mouth once [...] Lifestyle Employer And Job Title: [employer] ([employer]) Years Of Education Completed: Not specified Marital [...] GENITOURINARY: Negative for dysuria, frequency and incontinence MULTIPLE SPINDLE ROUTER OPERATOR: Negative for abnormal vaginal bleeding, abnormal vaginal [...] ) Wt 56.5 (more content not included)... [facility] 12-22-2021 History of Present illness Narrative Images from the original note were not included. [facility] [place] Tiffany Umana Department of Cardiovascular Medicine SECTION [...] CURRENT MEDS: Current Outpatient Medications Medication Sig Dofujwgh-Wb-Fko-Fe-FA tab Take 1 tablet by mouth once [...] Lifestyle Employer And Job Title: [employer] ([employer]) Years Of Education Completed: Not specified Marital [...] GENITOURINARY: Negative for dysuria, frequency and incontinence MULTIPLE SPINDLE ROUTER OPERATOR: Negative for abnormal vaginal bleeding, abnormal vaginal [...] Grove et al. 2017 Guidelines of the [place] [employer] for the Diagnosis and Management [...] my evaluation. 31 year old female eula (My COI) presents on referral from Dr. Marquez for [...] of Cardiovascular Medicine documented in this encounter [facility] 12-17-2021 Note HNO ID: [id number] Author: Yenny Hawk MD Service: ? Author Type: Physician Type: Progress Notes Filed: 12/17/2021 3:27 PM Note Text: Rheumatology CONSULTATION Date of Service: 12/17/2021 Patient: Cayla Quevedo Medical Record: [id number] Primary Care Physician: Araceli Cole NP Last Rheumatology visit: None at [facility] Referring Provider: Amira Marquez [address] [facility] [address] [place] [address] Chief Complaint: Patient presents with: New Patient Cayla Quevedo is here today at request of Dr. Marquez specifically for consultation of my opinion in regards to the chief complaint listed above. Correspondence will be shared today via the [facility] electronic health record or through regular mail, [...] 1 episode of 12 hours of persistent vlqb-fgt-fuobysa in her hands and feet. She has [...] Weighed Score 12/10/2021 (more content not included)... [facility] 12-17-2021 History of Present illness Narrative Images from the original note were not included. Rheumatology CONSULTATION Date of Service: 12/17/2021 Patient: Cayla Quevedo Medical Record: [id number] Primary Care Physician: Araceli Cole NP Last Rheumatology visit: None at [facility] Referring Provider: Amira Marquez [address] [facility] [address] [facility] [address] Chief Complaint: Patient presents with: New Patient Cayla Quevedo is here today at request of Dr. Marquez specifically for consultation of my opinion in regards to the chief complaint listed above. Correspondence will be shared today via the [facility] electronic health record or through regular mail, [...] 1 episode of 12 hours of persistent tduu-rdq-kxscpzp in her hands and feet. 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 Social History Tobacco Use Smoking status: Never Smokeless tobacco: Never Substance Use Topics Alcohol use: Not Currently Comment: Occasionally Drug use: Never MEDICATIONS Current Outpatient Medications Medication Sig Umlysssn-Er-Dnm-Fe-FA tab Take 1 tablet by mouth once [...] 0 Total Swollen 0 LABS Reviewed in [facility], notable for: Uric acid 4.0 Creatinine [...] which included preparing to see the patient, ceon-pv-ygrj patient care, completing clinical documentation, obtaining and/or reviewing separately obtained history, performing a medically appropriate examination, counseling and educating the patient/family/caregiver, and ordering medications, tests, or procedures. This note was partially generated with the assistance of [employer] voice recognition software. An attempt was made to correct any dictation errors however there may be some incorrect words, spellings, and punctuation. ___ Yenny Hawk MD Rheumatology Date: December 17, 2021 Time: 3:07 PM documented in this encounter [facility] 12-17-2021 Instructions Yenny Hawk MD - 12/17/2021 3:02 PM EDT We will do lots of blood tests to look into lupus, Sjogren's, rheumatoid arthritis, spondyloarthritis X rays of hands, feet, low back, we may need MRI of the low back Follow up in 1-3 weeks to discuss results documented in this encounter [facility] 11-10-2021 Note HNO ID: [id number] Author: Amira Marquez APRN.RICCARDO Service: ? Author Type: Outside Energy Sales Representatives Type: Progress Notes Filed: 11/14/2021 12:13 PM [...] L0 SAB0 IAB0 Ectopic0 Multiple0 Live Births0 Clay Preparation Supervisor History LMP: 10/28/2021 (Exact Date), Unknown Age at Menarche: Age at First : Age at Menopause: Clay Preparation Supervisor History Comments: Sexual Activity: Yes; Male Contraception: [...] 6) Myalgias, so consult rheumatology. Amira Marquez APRN.[facility] 11-10-2021 History of Present illness Narrative Calya is a 31 year old who presents [...] L0 SAB0 IAB0 Ectopic0 Multiple0 Live Births0 Clay Preparation Supervisor History LMP: 10/28/2021 (Exact Date), Unknown Age at Menarche: Age at First : Age at Menopause: Clay Preparation Supervisor History Comments: Sexual Activity: Yes; Male Contraception: [...] Amira Marquez APRN.CNM documented in this encounter [facility] 11-01-2020 Note HNO ID: [id number] Author: Richardson Fan ([employer]) Service: ? Author Type: ? Type: Plan of Care Filed: 11/28/2020 2:23 PM Note Text: PHARMACY BEDSIDE DELIVERY SERVICE Patient Name: Cayla Quevedo The marked outpatient medications were filled and picked up at [facility] Medication List START taking these [...] Generic drug: aspirin, enteric coated Richardson Fan ([employer]) [facility] 11-01-2020 Note HNO ID: [id number] Author: Niesha Rollins APRN.CNM Service: Obstetrics Author Type: Outside Energy Sales Representatives Type: Progress Notes Filed: 11/01/2020 11:09 AM [...] with: Provider, RN, Patient. Niesha Rollins APRN.CNM [facility] 10-31-2020 Note HNO ID: [id number] Author: Amanda Gonzalez APRN.CNM Service: Obstetrics Author Type: Outside Energy Sales Representatives Type: Progress Notes Filed: 10/31/2020 11:37 AM [...] medical decision-making components. I have reviewed the nurse-equipment validation specialist student documentation and verified the findings in the note as written. Amanda Gonzalez APRN.RICCARDO [facility] 10-30-2020 Note HNO ID: [id number] Author: Lanie Hernandes APRN.[facility] Service: Obstetrics Author Type: Outside Energy Sales Representatives Type: Progress Notes Filed: 10/30/2020 7:57 AM [...] complications. Cat 1 tracing Expect vaginal delivery [facility] 10-30-2020 Note HNO ID: [id number] Author: Faith Milan MD Service: Obstetrics Author [...] Milan MD October 30, 2020 4:09 AM [facility] 10-30-2020 Note HNO ID: [id number] Author: Teresita Bowling APRN.PROCESS CONTROLS TECHNICIAN Service: Anesthesiology Author Type: Nurse Case Management Associate Type: Anesthesia Procedure Notes Filed: 10/30/2020 2:44 AM Note Text: ANESTHESIOLOGY PROCEDURE NOTE Epidural Block General Information Procedure Start Time/Medication Administration: 10/30/2020 2:30 AM Patient location during procedure: [facility] room Timeout Performed Pre-procedure: timeout performed Consent Obtained: Yes Patient identity confirmed: arm band, care steam engineer and patient Reason for block: labor epidural Staffing Anesthesiologist: Juan José Cutler MD PROCESS CONTROLS TECHNICIAN: Teresita Bowling APRN.PROCESS CONTROLS TECHNICIAN Performed by: anesthesiologist Preparation Sterility Preparation: hand [...] Negative CSF, heme, paresthesias. SIGNATURE: Teresita Bowling APRN.PROCESS CONTROLS TECHNICIAN PATIENT NAME: Cayla Quevedo DATE: October 30, 2020 TIME: 2:30 AM CSN: [id number] [facility] 10-30-2020 Note HNO ID: [id number] Author: Faith Milan MD Service: Obstetrics Author [...] Milan MD October 30, 2020 12:18 AM [facility] 10-30-2020 Note HNO ID: [id number] Author: Lanie Hernandes APRN.CNM Service: Obstetrics Author Type: Outside Energy Sales Representatives Type: Progress Notes Filed: 10/30/2020 2:23 AM [...] DATE: October 30, 2020 TIME: 2:17 AM [facility] 10-29-2020 Note HNO ID: [id number] Author: Lanie Hernandes APRN.CNM Service: Obstetrics Author Type: Outside Energy Sales Representatives Type: Progress Notes Filed: 10/29/2020 10:19 PM [...] DATE: October 29, 2020 TIME: 10:15 PM [facility] 10-29-2020 Note HNO ID: [id number] Author: Faith Milan MD Service: Obstetrics Author [...] Milan MD October 29, 2020 8:18 PM [facility] 10-29-2020 Note HNO ID: [id number] Author: Faith Milan MD Service: Obstetrics Author [...] care. Faith Milan MD October 29, 2020 4:06 PM [facility] 10-29-2020 Note HNO ID: [id number] Author: Lanie Hernandes APRN.CNM Service: Obstetrics Author Type: Outside Energy Sales Representatives Type: Progress Notes Filed: 10/29/2020 2:51 PM [...] to try position changes and have her date pitter come in at this point. Will consider AROM at next check. BP mostly WNL, with some systolic in low 140's. Patient asymptomatic for KRUEGER, vision changes or RUQ pain. LABS Diagnostic tests reviewed for today's visit: Most recent labs and imaging results. Plan of care discussed with: Provider, RN, Patient and Family/Significant Other: Present. SIGNATURE: Laine Hernandes APRN.CNM PATIENT NAME: Cayla Quevedo DATE: October 29, 2020 TIME: 2:39 PM [facility] 10-29-2020 Note HNO ID: [id number] Author: Faith Milan MD Service: Obstetrics Author [...] Milan MD October 29, 2020 12:04 PM [facility] documented as of this encounter (statuses as of 11/10/2021) [facility]09-01-2021 History of Past illness Narrative* Problem Noted Date Resolved Date Mild preeclampsia 10/29/2020 12/09/2020 Mild pre-eclampsia in third trimester 10/28/2020 12/09/2020 Overview: Preeclampsia without severe features. PCR 2.2 Platelets 149 AST/ALT/uric acid is WNL Mild preeclampsia 10/28/2020 10/28/2020 Encounter for supervision of normal first in second trimester 06/17/2020 10/28/2020 documented as of this encounter (statuses as of 11/14/2021) [facility]-01[facility]2021 History of Past illness Narrative* Problem Noted Date Resolved Date Mild preeclampsia 10/29/2020 12/09/2020 Mild pre-eclampsia in third trimester 10/28/2020 12/09/2020 Overview: Preeclampsia without severe features. PCR 2.2 Platelets 149 AST/ALT/uric acid is WNL Mild preeclampsia 10/28/2020 10/28/2020 Encounter for supervision of normal first in second trimester 06/17/2020 10/28/2020 documented as of this encounter (statuses as of 12/17/2021) [facility]-01[facility]2021 History of Past illness Narrative* Problem Noted Date Resolved Date Mild preeclampsia 10/29/2020 12/09/2020 Mild pre-eclampsia in third trimester 10/28/2020 12/09/2020 Overview: Preeclampsia without severe features. PCR 2.2 Platelets 149 AST/ALT/uric acid is WNL Mild preeclampsia 10/28/2020 10/28/2020 Encounter for supervision of normal first in second trimester 06/17/2020 10/28/2020 documented as of this encounter (statuses as of 12/25/2021) [facility]2021 History of Past illness Narrative* Problem Noted Date Resolved Date Mild preeclampsia 10/29/2020 12/09/2020 Mild pre-eclampsia in third trimester 10/28/2020 12/09/2020 Overview: Preeclampsia without severe features. PCR 2.2 Platelets 149 AST/ALT/uric acid is WNL Mild preeclampsia 10/28/2020 10/28/2020 Encounter for supervision of normal first in second trimester 06/17/2020 10/28/2020 documented as of this encounter (statuses as of 12/30/2021) [facility]-01[facility]2021 History of Past illness Narrative* Problem Noted Date Resolved Date Mild preeclampsia 10/29/2020 12/09/2020 Mild pre-eclampsia in third trimester 10/28/2020 12/09/2020 Overview: Preeclampsia without severe features. PCR 2.2 Platelets 149 AST/ALT/uric acid is WNL Mild preeclampsia 10/28/2020 10/28/2020 Encounter for supervision of normal first in second trimester 06/17/2020 10/28/2020 documented as of this encounter (statuses as of 01/19/2022) [facility]09-01-2021 NoteHNO ID: [id number] Author: Lanie Hernandes APRN.CNM Service: Obstetrics Author Type: Outside Energy Sales Representatives Type: Progress Notes Filed: 10/29/2020 9:28 AM [...] Quevedo DATE: October 29, 2020 TIME: 9:26 [facility]09-01-2021 NoteHNO ID: [id number] Author: Mandie Hinton APRN.CNM Service: Obstetrics Author Type: Outside Energy Sales Representatives Type: Progress Notes Filed: 10/29/2020 4:02 AM Note Text: Patient is resting. Pain is tolerable, uncomfortable EFM Category 1, Contractions 2-4 minutes - Miso #2 to be given buccal by RN. - BP remains stable, no severe range, no IV medications during stay. - Continue present mgmt Mandie Hinton APRN.[facility]09-01-2021 NoteHNO ID: [id number] Author: Mandie Hinton APRN.CNM Service: Obstetrics Author Type: Outside Energy Sales Representatives Type: Progress Notes Filed: 10/29/2020 1:18 AM [...] and calvillo medication as indicated. Mandie Hinton APRN.[facility] [id number] NoteHNO ID: [id number] Author: Ashley Foley RN Service: Nursing Author [...] Quevedo DATE: October 28, 2020 TIME: 6:55 [facility] + Plan note No data available for this section [facility] Evaluation note* Diagnosis History of pre-eclampsia- Primary Personal history of other genital system and obstetric disorders documented in this encounter [facility] note* Diagnosis Encounter for gynecological examination (general) (routine) without abnormal findings- Primary History of pre-eclampsia Personal history of other genital system and obstetric disorders Elevated C-reactive protein (CRP) Myalgia Mylagia and myositis, unspecified documented in this encounter [facility] note* Diagnosis Malaise and fatigue- Primary Other malaise and fatigue Elevated C-reactive protein (CRP) Myalgia Mylagia and myositis, unspecified Polyarthralgia Pain in joint, multiple sites Inflammatory back pain documented in this encounter 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) Genetic susceptibility to other disease Abnormal urine findings Other nonspecific finding on examination of urine Disorder of bone Disorder of bone and cartilage, unspecified documented in this encounter [facility]* Diagnosis Palpitations- Primary History of pre-eclampsia Personal history of other genital system and obstetric disorders documented in this encounter [facility] Discharge instructions No data available for this section [facility] Progress note No data available for this section [facility] Reason for referral (narrative)* Outpatient Procedure (Routine) - Authorized Specialty Diagnoses / Procedures Referred By Dragan t Referred To Contact [facility] Diagnoses History of pre-eclampsia Procedures ECG COMPLETE ECG ROUTINE ECG W/LEAST 12 LDS W/I&R Benito Rivas MD [address] [place] [address] [facility] [id number] [place] [address] Referral ID Status Reason Start Date Expiration Date Visits Requested Visits Authorized [id number] Authorized Auto-Generat ed Referral 11/10/2021 11/10/2022 1 1 [facility] for referral (narrative)* Diagnostic Procedure Only (Routine) - Pending Review Specialty Diagnoses / Procedures Referred By Contac t Referred To Contact XR IMAGING Diagnoses Polyarthralgia Procedures XR HAND GENERAL 3V PA/LAT/OBL BILATERAL RADEX HAND MINIMUM 3 [place] [address] [place] [address] Xr Imaging Referral ID Status Reason Start Date Expiration Date Visits Requested Visits Authorized [id number] Pending Review Auto-Generat ed Referral 2 01/16/2023 1 1 * Molecular Testing (Routine) - Authorized Specialty Diagnoses / Procedures [facility] To Contact MOLECULAR & FUNCTIONAL IMAGING Diagnoses Elevated C-reactive protein (CRP) Polyarthralgia Inflammatory back pain Procedures HLA-B27 PCR HLA I LOW RESOLUTION ONE AN[place] [address] [place] [address] Molecular & Functional Imaging [address] [place] [address] Referral ID Status Reason Start Date Expiration Date Visits Requested Visits Authorized [id number] Authorized PCP Requested Referral Auto-Generate d Referral 2 03/17/2022 1 1 * Diagnostic Procedure Only (Routine) - Pending Review Specialty Diagnoses / Procedures [facility] Referred To Contact XR IMAGING Diagnoses Elevated C-reactive protein (CRP) Polyarthralgia Inflammatory back pain Procedures XR SACROILIAC JOINTS 2V AP PELVIS/FERGUESON RADIOLOGIC EXAMINATION SACROILIAC JNTS <3 [place] [address] [place] [address] Xr Imaging Referral ID Status Reason Start Date Expiration Date Visits Requested Visits Authorized [id number] Pending Review Auto-Generat ed Referral 2 01/16/2023 1 1 * Diagnostic Procedure Only (Routine) - Pending Review Specialty Diagnoses / Procedures [facility] Referred To Contact XR IMAGING Diagnoses Elevated C-reactive protein (CRP) Polyarthralgia Inflammatory back pain Procedures XR FOOT GENERAL 3V AP/LAT/OBL BILATERAL RADEX FOOT COMPLETE MINIMUM 3 [place] [address] [place] [address] Xr Imaging Referral ID Status Reason Start Date Expiration Date Visits Requested Visits Authorized [id number] Pending Review Auto-Generat ed Referral 2 01/16/2023 1 1 [facility] for referral (narrative)* Diagnostic Procedure Only (Routine) - Closed Specialty Diagnoses / Procedures Referred By Contac t Referred To Contact XR IMAGING Diagnoses Polyarthralgia Procedures XR HAND GENERAL 3V PA/LAT/OBL BILATERAL RADEX HAND MINIMUM 3 [place] [address] [place] [address] Xr Imaging Referral ID Status Reason Start Date Expiration Date V isits Requested Visits Authorized [id number] Closed Auto-Generate d Referral 12/17/2021 01/16/2023 1 1 * Diagnostic Procedure Only (Routine) - Closed Specialty Diagnoses / Procedures Referred By Contac t Referred To Contact XR IMAGING Diagnoses Elevated C-reactive protein (CRP) Polyarthralgia Inflammatory back pain Procedures XR SACROILIAC JOINTS 2V AP PELVIS/FERGUESON RADIOLOGIC EXAMINATION SACROILIAC JNTS <3 [place] [address] [place] [address] Xr Imaging Referral ID Status Reason Start Date Expiration Date V isits Requested Visits Authorized [id number] Closed Auto-Generate d Referral 12/17/2021 01/16/2023 1 1 * Diagnostic Procedure Only (Routine) - Closed Specialty Diagnoses / Procedures Referred By Contac t Referred To Contact XR IMAGING Diagnoses Elevated C-reactive protein (CRP) Polyarthralgia Inflammatory back pain Procedures XR FOOT GENERAL 3V AP/LAT/OBL BILATERAL RADEX FOOT COMPLETE MINIMUM 3 [place] [address] [place] [address] Xr Imaging Referral ID Status Reason Start Date Expiration Date V isits Requested Visits Authorized [id number] Closed Auto-Generate d Referral 12/17/2021 01/16/2023 1 1 [facility] Diagnostic Procedure Only (Routine) - Closed Specialty Diagnoses / Procedures Referred By Contac t Referred To Contact XR IMAGING Diagnoses Elevated C-reactive protein (CRP) Polyarthralgia Inflammatory back pain Procedures XR SACROILIAC JOINTS 2V AP PELVIS/FERGUESON RADIOLOGIC EXAMINATION SACROILIAC JNTS <3 [place] [address] [place] [id number] Xr Imaging Referral ID Status Reason Start Date Expiration Date V isits Requested Visits Authorized [id number] Closed Auto-Generate d Referral 12/17/2021 01/16/2023 1 1 [facility] Summary Purpose Family History No Family History [...] Myalgia Procedures CONSULT TO RHEUM/IMMUN DISEASE OFFICE/OUTPATIENT [facility] 60-74 MINUTES Amira Marquez, BARK PRESS OPERATOR.CN [address] [place] [address] Referral ID Status Reason Start Date Expiration Date Visits Requested Visits Authorized [id number] Authorized PCP Requested Referral 11/10/2021 11/10/2022 1 1 Specialty Diagnoses / Procedures Referred By Contac t Referred To Contact Diagnoses History of pre-eclampsia Procedures CONSULT TO PREVENTIVE CARD OFFICE/OUTPATIENT [facility] 60-74 MINUTES Amira Marquez, BARK PRESS OPERATOR.CNCaryl [address] [place] [id number] Referral ID Status Reason Start Date Expiration Date Visits Requested Visits Authorized [id number] Authorized PCP Requested Referral 11/10/2021 11/10/2022 1 1 Specialty Diagnoses / Procedures Referred By Contac t Referred To Contact MR IMAGING Diagnoses Spondyloarthritis HLA B27 (HLA B27 positive) Disorder of bone Procedures MRI PELVIS ORTHO GENERAL WO/W IVCON MRI ANY JT LOWER EXTREM W/O & [place] [address] [place] [id number] Mr Imaging Referral ID Status Reason Start Date Expiration Date Visits Requested Visits Authorized [id number] Pending Review Auto-Generat ed Referral 12/30/2021 01/29/2023 1 1 Additional Source Comments INFORMATION SOURCE (unrecogn ized section and content) DATE CREATED AUTHOR AUTHOR'S ORGANIZ ATION 01/01/2022 [facility] DATE CREATED AUTHOR AUTHOR'S ORGANIZ ATION 01/19/2022 [facility] DATE CREATED AUTHOR AUTHOR'S ORGANIZ ATION 02/28/2023 [facility] ([place]) Source Comments (unrecognize d section and content) In the event this informatio n is protected by the Federal Confidentiality of Alcohol and Drug Abuse Patient Records regulations: The Federal rules restrict any use of the information to criminally investigate or prosecute any alcohol or drug abuse patient.[facility] the event this information is protected by the Federal Confidentiality of Alcohol and Drug Abuse Patient Records regulations: The Federal rules restrict any use of the information to criminally investigate or prosecute any alcohol or drug abuse patient.[facility] the event this information is protected by the Federal Confidentiality of Alcohol and Drug Abuse Patient Records regulations: The Federal rules restrict any use of the information to criminally investigate or prosecute any alcohol or drug abuse patient.[facility] the event this information is protected by the Federal Confidentiality of Alcohol and Drug Abuse Patient Records regulations: The Federal rules restrict any use of the information to criminally investigate or prosecute any alcohol or drug abuse patient.[facility] the event this information is protected by the Federal Confidentiality of Alcohol and Drug Abuse Patient Records regulations: The Federal rules restrict any use of the information to criminally investigate or prosecute any alcohol or drug abuse patient.[facility] the event this information is protected by the Federal Confidentiality of Alcohol and Drug Abuse Patient Records regulations: The Federal rules restrict any use of the information to criminally investigate or prosecute any alcohol or drug abuse patient.[facility] Reason for Visit (unrecogniz ed section and content) Reason Comments New Patient Specialty Diagnoses / Procedures Referred By Contac t Referred To Contact Rheumatology Diagnoses Elevated C-reactive protein (CRP) Myalgia Procedures CONSULT TO RHEUM/IMMUN DISEASE OFFICE/OUTPATIENT NEW HIGH MDM 60-74 MINUTES Amira Marquez APRN.[facility] [address] [facility] [address] [place] [address] Referral ID Status Reason Start Date Expiration Date V isits Requested Visits Authorized [id number] Closed PCP Requested Referral 11/10/2021 11/10/2022 1 1 Reason Comments Back Pain Reason Comments CARD New Patient Consult Hx pre-eclampsi a Specialty Diagnoses / Procedures Referred By Contac t Referred To Contact Diagnoses History of pre-eclampsia Procedures CONSULT TO PREVENTIVE CARD OFFICE/OUTPATIENT NEW HIGH MDM 60-74 MINUTES Amira Marquez APRN.CN [address] [facility] [address] [place] [address] Referral ID Status Reason Start Date Expiration Date V isits Requested Visits Authorized [id number] Closed PCP Requested Referral 11/10/2021 11/10/2022 1 1 Care Teams (unrecognized sec tion and content) Care Team Personnel Name: SAJAN STEVENSON MD Member Role: OBGYN Address: Address: [address] [address]- [place] Name: ARACELI COLE APRN-DUST SAMPLER Position: P4 Advanced Enrollment Manager Member Role: Primary Care Physician Address: Address: [address] [place] [address] Care Team Related Persons Name: CHRIS QUEVEDO Global Account Manager Relationship Specialty Start Date End Date Araceli Cole (Internet Specialist) [address] [place] [phone] PCP - General Internal Medicine 12/17/21 Benito Rivas MD [address] [place] [address] Primary Staff Physician Cardiology 12/22/21 Global Account Manager Relationship Specialty Start Date End Date Araceli Cole (Internet Specialist) [address] [place] [phone] PCP - General Internal Medicine 12/17/21 Benito Rivas MD [address] [place] [address] Primary Staff Physician Cardiology 12/22/21 Global Account Manager Relationship Specialty Start Date End Date Araceli Cole Etelvina (Internet Specialist) [address] [place] [phone] PCP - General Internal Medicine 12/17/21 Benito Rivas MD [address] [facility] [place] [address] Primary Staff Physician Cardiology 12/22/21 [...] BE BASED ON THE PRIMARY CLINICAL RECORDS. [employer] provides no warranty or guarantee of the accuracy or completeness of information in this document.
== END | disposition home or self-care (01) ==
LOC: PAVLAB 09:08
PROVIDERS: PCP Nurse Practitioner Family; Referring Provider Obstetrics & Gynecology; Visit Provider Obstetrics & Gynecology
DX: N93.9 Abnormal uterine and vaginal bleeding, unspecified (principal)
CPT/HCPCS: 36415

== ENCOUNTER → 2023-03-14 | Outpatient (CLI) | payer BC, SELFPAY ==
--- NOTE | 2023-03-14 11:58 | US_ITS ---
INDICATION: Infertility EXAMINATION/TECHNIQUE: Saline infused sonohysterography was performed. COMPARISON: FINDINGS: The uterine cavity contour is unremarkable. There is a 6 mm x 5 mm endometrial polyp in the region of the fundus. US/SIS-SALINE INF SONOHYSTEROGRAM IMPRESSION: 6 mm x 5 mm endometrial polyp in the fundal portion of the endometrium. Electronically Signed: Saroj Johnson MD at 14:37 EST ,
--- OUTSIDE RECORDS SUMMARY | 2023-03-14 12:22 | XMS RPT_ITS | CCD ---
Author Name Unknown Address [address] [place] [address] Organization [facility] Care Team Providers Care Automatic Dispenser Mechanic Name Role Phone Unavailable Primary Care Provider Araceli Chambers (Regular Senior Care Provider) Primary Care Provider Benito Rivas MD Unavailable YENNY HAWK Referring Unavailable ARACELI COLE (HORSE WRANGLER) Primary Care ARACELI Chambers (HORSE WRANGLER) Primary Care UnavailYENNY Holman Referring Unavailable Araceli Cole (Regular Senior Care Provider) Primary Care Provider Benito Rivas MD Unavailable BENITO RIVAS Attending Unavailable AMIRA MARQUEZ Referring Unavailable ARACELI COLE (HORSE WRANGLER) Primary Care UnavailYENNY Holman Attending Unavailable ARACELI COLE (HORSE WRANGLER) Primary Care UnavailAMIRA Noble Attending Unavailable YENNY HAWK Attending Unavailable AMIRA MARQUEZ Referring Unavailable BENITO RIVAS Referring Unavailable ARACELI COLE (HORSE WRANGLER) Primary Care ARACELI Johnson Primary Care Physician ARACELI PARKS Primary Care ARACELI Rodrigues Attending ARACELI Rodrigues Attending ARACELI Rodrigues Primary Care Queenie martinez Allergies Allergy Classification Reported Allergen(s) Allergy Type Date of Onset Reaction(s) Facility (8 sources) meloxicam; Translations: [MELOXICAM] Drug Allergy 03-07-2019 Other: See Comments [facility] Work Phone: (8 sources) Pseudoephedrine; Translations: [PSEUDOEPHEDRINE HCL] Drug Allergy 12-08-2017 Other: See Comments [facility] Work Phone: Medications Current Medications Medication Drug [...] Date Time Vital Sign Value Performing Clinician Faci [facility] 12-22-2021 09:48-0400 Diastolic blood pressure 56 mm[Hg] Benito Rivas MD Work Phone: [facility] 12-22-2021 09:48-0400 Heart rate 66 /min Benito Rivas MD Work Phone: [facility] 12-22-2021 09:48-0400 Systolic blood pressure 94 mm[Hg] Benito Rivas MD Work Phone: [facility] 12-22-2021 09:41-0400 Body height 162.6 cm Benito Rivas MD Work Phone: [facility] 12-22-2021 09:41-0400 Body weight 56.52 kg Benito Rivas MD Work Phone: [facility] 12-17-2021 14:26-0400 Body height 162.6 cm Yenny Hawk MD Work Phone: [facility] 12-17-2021 14:26-0400 Body temperature 97.59 [degF] Yenny Hawk MD Work Phone: [facility] 12-17-2021 14:26-0400 Body weight 56.7 kg Yenny Hawk MD Work Phone: [facility] 12-17-2021 14:26-0400 Diastolic blood pressure 77 mm[Hg] Yenny Hawk MD Work Phone: [facility] 12-17-2021 14:26-0400 Heart rate 95 /min Yenny Hawk MD Work Phone: [facility] 12-17-2021 14:26-0400 Systolic blood pressure 111 mm[Hg] Yenny Hawk MD Work Phone: [facility] 11-10-2021 10:41-0400 Body height 162.6 cm Amira Marquez APRN.CNM Work Phone: [facility] 11-10-2021 10:41-0400 Body weight 56.25 kg Amira Solo MORNING BABYSITTER.CNM Work Phone: [facility] 11-10-2021 10:41-0400 Diastolic blood pressure 68 mm[Hg] Amiragregory Marquez MORNING BABYSITTER.CNM Work Phone: [facility] 11-10-2021 10:41-0400 Systolic blood pressure 128 mm[Hg] Amira Marquez MORNING BABYSITTER.CNM Work Phone: [facility] Encounters Encounter Date Encounter Type Care Provider Facility Start: 02-24-2023 End: 03-01-2023 ambulatory ARACELI COLE MORNING BABYSITTER-JACKSPOOLER Facility:B Start: 02-24-2023 End: 02-28-2023 Outreach Lab ARACELI COLE IMELDAAlexiJACKSPOOLER [facility] Start: 12-28-2022 End: 12-29-2022 ambulatory ARACELI COLE MORNING BABYSITTER-JACKSPOOLER Facility:B Start: 12-28-2022 End: 12-28-2022 Patient encounter procedure ARACELI COLE MORNING BABYSITTER-JACKSPOOLER [facility] Start: 12-30-2021 End: 12-30-2021 [facility] Yenny Hawk MD Work Phone: Rheumatology Procedures Date Procedure Procedure Detail Performing Clinician Start: 02-28-2022 Dilation and curetta ge of uterus ARACELI COLE ALEC Start: 10-28-2020 Antibody screen Plan of Treatment Date Care Activity Detail Author Start: 08-26-2030 Urine microalbumin profile DTAP,TDAP,TD (8 - Td or Tdap) [facility] Start: 04-27-2024 PAP TESTING PAP TESTING [facility] Start: 12-30-2021 End: 03-01-2022 Protein/Creatinine [Mass Ratio] in Urine PROTEIN CREATININE RATIO Lab Routine Abnormal urine findings Expected: 12/30/2021, Expires: 03/01/2022 [facility] Work Phone: Immunizations Immunization Date Immunization Notes Care Provider Fa cility 12-26-2020 SARS-CoV-2 mRNA (tozinameran) vaccine ARACELI COLE IMELDA-JACKSPOOLER [facility] [place] Payers Date Payer Category Payer Unknown LILIANE MARTINEZ PPO [id number] 2020-Present [phone] [address] [place] [address] PPO [id number] 2020 Unknown [id number] 1990 Unknown [id number] 1990 Unknown [id number] Social History Date Type Detail Facility Start: 11-10-2021 End: 11-30-2022 Tobacco smoking status NHIS Never smoked tobacco [facility] Start: 11-10-2021 Tobacco use and exposure Smokeless tobacco non-user [facility] Start: 11-10-2021 Alcohol intake Ex-drinker (finding) [facility] Start: 12-26-2018 History SDOH Alcohol Comment Occasionally [facility] Start: 1990 Sex Assigned At Female [facility] Start: 10-31-2021 End: 12-24-2021 Exposure to SARS-CoV-2 (event) Not sure [facility] Start: 12-22-2021 Alcohol intake Current drinke r of alcohol (finding) [facility] Start: 12-22-2021 Alcohol Comment Occasionally 1x/ mon th [facility] Sex Assigned At Sex [facility] Clinical Notes 10-28-2020 to 02-26-2023 Yenny Hawk [...] Locations *1: This test was performed at: [facility], [address] [place] [address], [id number] , [facility] ([place]) 12-30-2021 Note HNO ID: [id number] Author: Yenny Hawk MD Service: ? Author Type: Physician Type: Progress Notes Filed: 12/30/2021 10:28 AM Note Text: Rheumatology FOLLOW UP VISIT Date of Service: 12/30/2021 Patient: Cayla Quevedo Medical Record: [id number] Primary Care Physician: Araceli Cole NP Last [...] went on a hiking trip in the [facility] and had no back pain and [...] 1 episode of 12 hours of persistent ecbv-gpe-zlpjyjp in her hands and feet. She has [...] Medication;Reposition;Relaxation Relaxation Medication;Reposit (more content not included)... [facility] 12-30-2021 History of Present illness Narrative Images from the original note were not included. Rheumatology FOLLOW UP VISIT Date of Service: 12/30/2021 Patient: Cayla Quevedo Medical Record: [id number] Primary Care Physician: Araceli Cole NP Last [...] went on a hiking trip in the [facility] and had no back pain and [...] 1 episode of 12 hours of persistent espf-gej-giutidw in her hands and feet. She has [...] in the MR contrast administration guidelines link Vyzetnvd-Bj-Gvi-Fe-FA tab Take 1 tablet by mouth once [...] DNA ANTIBODY W/CONFIRMATION <30 IU/mL <12 <12 FAMILY MEDICINE PHYSICIAN ANTIBODY QUAL Negative Negative Negative SSA ANTIBODY QUAL Negative Negative Negative JUNIOR-1 ANTIBODY, IGG <1.0 AI <0.2 <0.2 JUNIOR 1 ANTIBODY QUAL Negative Negative Negative RIBOSOMAL FAMILY MEDICINE PHYSICIAN AB <1.0 AI <0.2 <0.2 RIBOSOMAL FAMILY MEDICINE PHYSICIAN QUAL Negative Negative Negative ANTI-SSA <1.0 AI [...] after MRI is done Orders this visit: [facility] on 12/30/21 MRI PELVIS ORTHO GENERAL [...] was partially generated with the assistance of eyeQ voice recognition software. An attempt was made to correct any dictation errors however there may be some incorrect words, spellings, and punctuation. ___ Yenny Hawk MD Rheumatology Date: December 30, 2021 Time: 10:01 AM documented in this encounter [facility] 12-24-2021 Note HNO ID: [id number] Author: YEHUDA Bae Service: Radiology Author Type: [...] YEHUDA Bae December 24, 2021 10:10 AM [facility] 12-24-2021 History of Present illness Narrative [...] 2021 10:10 AM documented in this encounter [facility] 12-22-2021 Note HNO ID: [id number] Author: Benito Rivas MD Service: ? Author Type: Physician Type: Progress Notes Filed: 01/18/2022 10:37 PM Note Text: [facility] V[facility] [place] [facility] Department of Cardiovascular Medicine SECTION [...] CURRENT MEDS: Current Outpatient Medications Medication Sig Maocaydx-Eo-Ivi-Fe-FA tab Take 1 tablet by mouth once [...] Lifestyle Employer And Job Title: [employer] ([employer]) Years Of Education Completed: Not specified Marital [...] GENITOURINARY: Negative for dysuria, frequency and incontinence COURT SUPERVISOR: Negative for abnormal vaginal bleeding, abnormal vaginal [...] ) Wt 56.5 (more content not included)... [facility] 12-22-2021 History of Present illness Narrative Images from the original note were not included. [facility] [place] [facility] Department of Cardiovascular Medicine SECTION [...] CURRENT MEDS: Current Outpatient Medications Medication Sig Fzcedpzj-Lu-Tod-Fe-FA tab Take 1 tablet by mouth once [...] Lifestyle Employer And Job Title: [employer] ([employer]) Years Of Education Completed: Not specified Marital [...] GENITOURINARY: Negative for dysuria, frequency and incontinence COURT SUPERVISOR: Negative for abnormal vaginal bleeding, abnormal vaginal [...] Function tests in . Thyroid, 2019:29:3:412-420. Mehrdad Grove, et al. 2017 Guidelines of the [place] Thyroid Association for the Diagnosis and Management [...] my evaluation. 31 year old female eula ([employer]) presents on referral from Dr. Marquez for [...] of Cardiovascular Medicine documented in this encounter [facility] 12-17-2021 Note HNO ID: [id number] Author: Yenny Hawk MD Service: ? Author Type: Physician Type: Progress Notes Filed: 12/17/2021 3:27 PM Note Text: Rheumatology CONSULTATION Date of Service: 12/17/2021 Patient: Cayla Quevedo Medical Record: [id number] Primary Care Physician: Araceli Cole NP Last Rheumatology visit: None at [facility] Referring Provider: Amira Marquez [address] [facility] [address] [address] Chief Complaint: Patient presents with: New Patient Cayla Quevedo is here today at request of Dr. Marquez specifically for consultation of my opinion in regards to the chief complaint listed above. Correspondence will be shared today via the [employer] electronic health record or through regular mail, [...] 1 episode of 12 hours of persistent usdr-rup-yixmxns in her hands and feet. She has [...] Weighed Score 12/10/2021 (more content not included)... [facility] 12-17-2021 History of Present illness Narrative Images from the original note were not included. Rheumatology CONSULTATION Date of Service: 12/17/2021 Patient: Cayla Quevedo Medical Record: [id number] Primary Care Physician: Araceli Cole NP Last Rheumatology visit: None at [facility] Referring Provider: Amira Marquez [facility] [address] [address] Chief Complaint: Patient presents with: New Patient Cayla Quevedo is here today at request of Dr. Marquez specifically for consultation of my opinion in regards to the chief complaint listed above. Correspondence will be shared today via the [employer] electronic health record or through regular mail, [...] 1 episode of 12 hours of persistent lkhb-kab-uhpeyap in her hands and feet. 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, notable for: Uric acid 4.0 [...] which included preparing to see the patient, bxqa-zx-dvhf patient care, completing clinical documentation, obtaining and/or reviewing separately obtained history, performing a medically appropriate examination, counseling and educating the patient/family/caregiver, and ordering medications, tests, or procedures. This note was partially generated with the assistance of eyeQ voice recognition software. An attempt was made to correct any dictation errors however there may be some incorrect words, spellings, and punctuation. ___ Yenny Hawk MD Rheumatology Date: December 17, 2021 Time: 3:07 PM documented in this encounter [facility] 12-17-2021 Instructions Yenny Hawk MD - 12/17/2021 3:02 PM EDT We will do lots of blood tests to look into lupus, Sjogren's, rheumatoid arthritis, spondyloarthritis X rays of hands, feet, low back, we may need MRI of the low back Follow up in 1-3 weeks to discuss results documented in this encounter [facility] 11-10-2021 Note HNO ID: [id number] Author: Amira Marquez APRN.RICCARDO Service: ? Author Type: Director Of Retail Type: Progress Notes Filed: 11/14/2021 12:13 PM [...] L0 SAB0 IAB0 Ectopic0 Multiple0 Live Births0 Blacktop Paver Operator History LMP: 10/28/2021 (Exact Date), Unknown Age at Menarche: Age at First : Age at Menopause: Blacktop Paver Operator History Comments: Sexual Activity: Yes; Male [...] 6) Myalgias, so consult rheumatology. [facility]ira [facility] History of Present illness Narrative Cayla [...] L0 SAB0 IAB0 Ectopic0 Multiple0 Live Births0 Blacktop Paver Operator History LMP: 10/28/2021 (Exact Date), Unknown Age at Menarche: Age at First : Age at Menopause: Blacktop Paver Operator History Comments: Sexual Activity: Yes; Male [...] Amira Marquez APRN.CNM documented in this encounter [facility] 11-01-2020 Note HNO ID: [id number] Author: Richardson Fan ([employer]) Service: ? Author Type: ? Type: Plan of Care Filed: 11/28/2020 2:23 PM Note Text: PHARMACY BEDSIDE DELIVERY SERVICE Patient Name: Cayla Quevedo The marked outpatient medications were filled and picked up at [facility] Medication List START taking these [...] Generic drug: aspirin, enteric coated Richardson Fan ([employer]) [facility] 11-01-2020 Note HNO ID: [id number] Author: Niesha Rollins APRN.CNM Service: Obstetrics Author Type: Director Of Retail Type: Progress Notes Filed: 11/01/2020 11:09 AM [...] with: Provider, RN, Patient. Niesha Rollins APRN.CNM [facility] 10-31-2020 Note HNO ID: [id number] Author: Amanda Gonzalez APRN.CN Service: Obstetrics Author Type: Director Of Retail Type: Progress Notes Filed: 10/31/2020 11:37 AM [...] medical decision-making components. I have reviewed the nurse-hand fabric cutter student documentation and verified the findings in the note as written. Amanda Gonzalez APRN.RICCARDO [facility] 10-30-2020 Note HNO ID: [id number] Author: Lanie Hernandes APRN.[facility] Service: Obstetrics Author Type: Director Of Retail Type: Progress Notes Filed: 10/30/2020 7:57 AM [...] complications. Cat 1 tracing Expect vaginal delivery [facility] 10-30-2020 Note HNO ID: [id number] Author: Faith Milan MD Service: Obstetrics Author [...] Milan MD October 30, 2020 4:09 AM [facility] 10-30-2020 Note HNO ID: [id number] Author: Teresita Bowling APRN.CHIEF OPERATOR LOCK TENDER Service: Anesthesiology Author Type: Nurse Government Service Executive Type: Anesthesia Procedure Notes Filed: 10/30/2020 2:44 AM Note Text: ANESTHESIOLOGY PROCEDURE NOTE Epidural Block General Information Procedure Start Time/Medication Administration: 10/30/2020 2:30 AM Patient location during procedure: [facility] room Timeout Performed Pre-procedure: timeout performed Consent Obtained: Yes Patient identity confirmed: arm band, care fast food team member and patient Reason for block: labor epidural Staffing Anesthesiologist: Juan José Cutler MD CHIEF OPERATOR LOCK TENDER: Teresita Bowling APRN.CHIEF OPERATOR LOCK TENDER Performed by: anesthesiologist Preparation Sterility Preparation: hand [...] Negative CSF, heme, paresthesias. SIGNATURE: Teresita Bowling APRN.CHIEF OPERATOR LOCK TENDER PATIENT NAME: Cayla Quevedo DATE: October 30, 2020 TIME: 2:30 AM CSN: [id number] [facility] 10-30-2020 Note HNO ID: [id number] Author: Faith Milan MD Service: Obstetrics Author [...] Milan MD October 30, 2020 12:18 AM [facility] 10-30-2020 Note HNO ID: [id number] Author: Lanie Hernandes APRN.CNM Service: Obstetrics Author Type: Director Of Retail Type: Progress Notes Filed: 10/30/2020 2:23 AM [...] : Kiersten Solorzano RN) Decelerations: Decelerations: None (10/30/200 : Kiersten Solorzano RN) Contractions: Irregular (10/30/20199 [...] DATE: October 30, 2020 TIME: 2:17 AM [facility] 10-29-2020 Note HNO ID: [id number] Author: Lanie Hernandes APRN.CNM Service: Obstetrics Author Type: Director Of Retail Type: Progress Notes Filed: 10/29/2020 10:19 PM [...] 500 mL iv infusion (INDUCTION/AUGMENTATION) (PITOCIN) 18 atruro-units/min 18 mL/hr Objective Last Vitals BP Temp [...] DATE: October 29, 2020 TIME: 10:15 PM [facility] 10-29-2020 Note HNO ID: [id number] Author: Faith Milan MD Service: Obstetrics Author [...] Milan MD October 29, 2020 8:18 PM [facility] 10-29-2020 Note HNO ID: [id number] Author: Faith Milan MD Service: Obstetrics Author [...] Milan MD October 29, 2020 4:06 PM [facility] 10-29-2020 Note HNO ID: [id number] Author: Lanie Hernandes APRN.CN Service: Obstetrics Author Type: Director Of Retail Type: Progress Notes Filed: 10/29/2020 2:51 PM [...] RN) Effacement (%): 90 (10/29/20 1350 : Hiwto Ryan RN) Station: -1 (10/29/20 1350 : [...] to try position changes and have her sound editor come in at this point. Will consider [...] DATE: October 29, 2020 TIME: 2:39 PM [facility] 10-29-2020 Note HNO ID: [id number] Author: Faith Milan MD Service: Obstetrics Author [...] Milan MD October 29, 2020 12:04 PM [facility] documented as of this encounter (statuses as of 11/10/2021) [facility]09-01-2021 History of Past illness Narrative* Problem Noted Date Resolved Date Mild preeclampsia 10/29/2020 12/09/2020 Mild pre-eclampsia in third trimester 10/28/2020 12/09/2020 Overview: Preeclampsia without severe features. PCR 2.2 Platelets 149 AST/ALT/uric acid is WNL Mild preeclampsia 10/28/2020 10/28/2020 Encounter for supervision of normal first in second trimester 06/17/2020 10/28/2020 documented as of this encounter (statuses as of 11/14/2021) [facility] History of Past illness Narrative* Problem Noted Date Resolved Date Mild preeclampsia 10/29/2020 12/09/2020 Mild pre-eclampsia in third trimester 10/28/2020 12/09/2020 Overview: Preeclampsia without severe features. PCR 2.2 Platelets 149 AST/ALT/uric acid is WNL Mild preeclampsia 10/28/2020 10/28/2020 Encounter for supervision of normal first in second trimester 06/17/2020 10/28/2020 documented as of this encounter (statuses as of 12/17/2021) [facility] History of Past illness Narrative* Problem Noted Date Resolved Date Mild preeclampsia 10/29/2020 12/09/2020 Mild pre-eclampsia in third trimester 10/28/2020 12/09/2020 Overview: Preeclampsia without severe features. PCR 2.2 Platelets 149 AST/ALT/uric acid is WNL Mild preeclampsia 10/28/2020 10/28/2020 Encounter for supervision of normal first in second trimester 06/17/2020 10/28/2020 documented as of this encounter (statuses as of 12/25/2021) [facility] History of Past illness Narrative* Problem Noted Date Resolved Date Mild preeclampsia 10/29/2020 12/09/2020 Mild pre-eclampsia in third trimester 10/28/2020 12/09/2020 Overview: Preeclampsia without severe features. PCR 2.2 Platelets 149 AST/ALT/uric acid is WNL Mild preeclampsia 10/28/2020 10/28/2020 Encounter for supervision of normal first in second trimester 06/17/2020 10/28/2020 documented as of this encounter (statuses as of 12/30/2021) [facility] History of Past illness Narrative* Problem Noted Date Resolved Date Mild preeclampsia 10/29/2020 12/09/2020 Mild pre-eclampsia in third trimester 10/28/2020 12/09/2020 Overview: Preeclampsia without severe features. PCR 2.2 Platelets 149 AST/ALT/uric acid is WNL Mild preeclampsia 10/28/2020 10/28/2020 Encounter for supervision of normal first in second trimester 06/17/2020 10/28/2020 documented as of this encounter (statuses as of 01/19/2022) [facility]09-01-2021 NoteHNO ID: [id number] Author: Lanie Hernandes APRN.CNM Service: Obstetrics Author Type: Director Of Retail Type: Progress Notes Filed: 10/29/2020 9:28 AM [...] ?C (98.4 ?F) Max taken time: 10/29/20 045 Last Pulse/Resp/O2/Temp: Pulse Resp O2 Sat Temp [...] Ryan RN) Contractions: Irregular (10/29/20899 : Hiwot Ryan, RN) Frequency: 2-5 (10/29/20899 : Hiwot Ryan [...] Quevedo DATE: October 29, 2020 TIME: 9:26 [facility]09-01-2021 NoteHNO ID: [id number] Author: Mandie Hinton APRN.CNM Service: Obstetrics Author Type: Director Of Retail Type: Progress Notes Filed: 10/29/2020 4:02 AM Note Text: Patient is resting. Pain is tolerable, uncomfortable EFM Category 1, Contractions 2-4 minutes - Miso #2 to be given buccal by RN. - BP remains stable, no severe range, no IV medications during stay. - Continue present mgmt Mandie Hinton APRN.[facility]09-01-2021 NoteHNO ID: [id number] Author: Mandie Hinton APRN.CNM Service: Obstetrics Author Type: Director Of Retail Type: Progress Notes Filed: 10/29/2020 1:18 AM [...] and calvillo medication as indicated. Mandie Hinton APRN.[facility]ICCARDOB[facility] [id number] NoteHNO ID: [id number] Author: Ashley Foley RN Service: Nursing Author [...] Start Time: 1816 (10/28/201846 : Ashley Foley, DAVE) Complete Time: 1846 (10/28/201846 : Ashley Foley RN) Indications: Other: Comment (high BP high protein) [...] Quevedo DATE: October 28, 2020 TIME: 6:55 [facility] + Plan note No data available for this section [facility] Evaluation note* Diagnosis History of pre-eclampsia- Primary Personal history of other genital system and obstetric disorders documented in this encounter [facility] note* Diagnosis Encounter for gynecological examination (general) (routine) without abnormal findings- Primary History of pre-eclampsia Personal history of other genital system and obstetric disorders Elevated C-reactive protein (CRP) Myalgia Mylagia and myositis, unspecified documented in this encounter [facility] note* Diagnosis Malaise and fatigue- Primary Other malaise and fatigue Elevated C-reactive protein (CRP) Myalgia Mylagia and myositis, unspecified Polyarthralgia Pain in joint, multiple sites Inflammatory back pain documented in this encounter 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 note* Diagnosis Palpitations- Primary History of pre-eclampsia Personal history of other genital system and obstetric disorders [facility] No data available for this section [facility] Progress note No data available for this section [facility] Reason for referral (narrative)* Outpatient Procedure (Routine) - Authorized Specialty Diagnoses / Procedures Referred By Contac t Referred To Contact [facility] Diagnoses History of pre-eclampsia Procedures ECG COMPLETE ECG ROUTINE ECG W/LEAST 12 LDS W/I&R Benito Rivas MD [address] [id number] [facility] [place] [address] Referral ID Status Reason Start Date Expiration Date Visits Requested Visits Authorized [id number] Authorized Auto-Generat ed Referral 11/10/2021 11/10/2022 1 1 [facility] for referral (narrative)* Diagnostic Procedure Only (Routine) - Pending Review Specialty Diagnoses / Procedures Referred By Contac t Referred To Contact XR IMAGING Diagnoses Polyarthralgia Procedures XR HAND GENERAL 3V PA/LAT/OBL BILATERAL RADEX HAND MINIMUM 3 [place] [address] [place] [address] Xr Imaging Referral ID Status Reason Start Date Expiration Date Visits Requested Visits Authorized [id number] Pending Review Auto-Generat ed Referral 2 01/16/2023 1 1 * Molecular Testing (Routine) - Authorized Specialty Diagnoses / Procedures Referred By Contac t Referred To Contact MOLECULAR & FUNCTIONAL IMAGING Diagnoses Elevated C-reactive protein (CRP) Polyarthralgia Inflammatory back pain Procedures HLA-B27 PCR HLA I LOW RESOLUTION ONE AN[place]IGEN [place] [address] [place] [address] Molecular & Functional Imaging [address] [place] [address] Referral ID Status Reason Start Date Expiration Date Visits Requested Visits Authorized [id number] Authorized PCP Requested Referral Auto-Generate d Referral 2 03/17/2022 1 1 * Diagnostic Procedure Only (Routine) - Pending Review Specialty Diagnoses / Procedures [facility] Referred To Contact XR IMAGING Diagnoses Elevated C-reactive protein (CRP) Polyarthralgia Inflammatory back pain Procedures XR SACROILIAC JOINTS 2V AP PELVIS/FERGUESON RADIOLOGIC EXAMINATION SACROILIAC JNTS <3 [place] [address] [place] [address] Xr Imaging Referral ID Status Reason Start Date Expiration Date Visits Requested Visits Authorized [id number] Pending Review Auto-Generat ed Referral 2 01/16/2023 1 1 * Diagnostic Procedure Only (Routine) - Pending Review Specialty Diagnoses / Procedures [facility] Referred To Contact XR IMAGING Diagnoses Elevated C-reactive protein (CRP) Polyarthralgia Inflammatory back pain Procedures XR FOOT GENERAL 3V AP/LAT/OBL BILATERAL RADEX FOOT COMPLETE MINIMUM 3 [place] [address] [place] [address] Xr Imaging Referral ID Status Reason Start Date Expiration Date Visits Requested Visits Authorized [id number] Pending Review Auto-Generat ed Referral 2 01/16/2023 1 1 [facility] for referral (narrative)* Diagnostic Procedure Only (Routine) - Closed Specialty Diagnoses / Procedures Referred By Contac t Referred To Contact XR IMAGING Diagnoses Polyarthralgia Procedures XR HAND GENERAL 3V PA/LAT/OBL BILATERAL RADEX HAND MINIMUM [address] [place] [address] [place] [address] Xr Imaging Referral ID Status Reason Start Date Expiration Date V isits Requested Visits Authorized [id number] Closed Auto-Generate d Referral 12/17/2021 01/16/2023 1 1 * Diagnostic Procedure Only (Routine) - Closed Specialty Diagnoses / Procedures Referred By Contac t Referred To Contact XR IMAGING Diagnoses Elevated C-reactive protein (CRP) Polyarthralgia Inflammatory back pain Procedures XR SACROILIAC JOINTS 2V AP PELVIS/FERGUESON RADIOLOGIC EXAMINATION SACROILIAC JNTS <3 [place] [address] [place] [address] Xr Imaging Referral ID Status Reason Start Date Expiration Date V isits Requested Visits Authorized [id number] Closed Auto-Generate d Referral 12/17/2021 01/16/2023 1 1 * Diagnostic Procedure Only (Routine) - Closed Specialty Diagnoses / Procedures Referred By Contac t Referred To Contact XR IMAGING Diagnoses Elevated C-reactive protein (CRP) Polyarthralgia Inflammatory back pain Procedures XR FOOT GENERAL 3V AP/LAT/OBL BILATERAL RADEX FOOT COMPLETE MINIMUM 3 [place] [address] [place] [address] Xr Imaging Referral ID Status Reason Start Date Expiration Date V isits Requested Visits Authorized [id number] Closed Auto-Generate d Referral 12/17/2021 01/16/2023 1 1 [facility] Diagnostic Procedure Only (Routine) - Closed Specialty Diagnoses / Procedures Referred By Dragan reed Referred To Contact XR IMAGING Diagnoses Elevated C-reactive protein (CRP) Polyarthralgia Inflammatory back pain Procedures XR SACROILIAC JOINTS 2V AP PELVIS/FERGUESON RADIOLOGIC EXAMINATION SACROILIAC JNTS <3 [place] [address] [address] [phone] Xr Imaging Referral ID Status Reason Start Date Expiration Date V isits Requested Visits Authorized [id number] Closed Auto-Generate d Referral 12/17/2021 01/16/2023 1 1 [facility] Summary Purpose Family History No Family History Records FoundNo Family History Records FoundNo Family History Records Found No data available for this section No data available for this section No Family History Records Found Advance Directives No Advanced Directives Records FoundNo Advanced Directives Records FoundNo Advanced Directives Records FoundNo Advanced Directives Records Found Reason for Referral Specialty Diagnoses / Procedures Referred By Dragan reed Referred To Contact Rheumatology Diagnoses Elevated C-reactive protein (CRP) Myalgia Procedures CONSULT TO RHEUM/IMMUN DISEASE OFFICE/OUTPATIENT [facility] 60-74 MINUTES Amira Marquez, IMELDA.CNCaryl [address] [place] [address] Referral ID Status Reason Start Date Expiration Date Visits Requested Visits Authorized [id number] Authorized PCP Requested Referral 11/10/2021 11/10/2022 1 1 Specialty Diagnoses / Procedures Referred By Dragan reed Referred To Contact Diagnoses History of pre-eclampsia Procedures CONSULT TO PREVENTIVE CARD OFFICE/OUTPATIENT [facility] MDM 60-74 MINUTES Amira Marquez, MORNING BABYSITTER.CNCaryl [address] [place] [address] Referral ID Status Reason Start Date Expiration Date Visits Requested Visits Authorized [id number] Authorized PCP Requested Referral 11/10/2021 11/10/2022 1 1 Specialty Diagnoses / Procedures Referred By Dragan reed Referred To Contact MR IMAGING Diagnoses 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 DATE CREATED AUTHOR AUTHOR'S ORGANIZ ATION 03/10/2023 [facility] ([place]) Source Comments (unrecognize d section and content) In the event this informatio n is protected by the Federal Confidentiality of Alcohol and Drug Abuse Patient Records regulations: The Federal rules restrict any use of the information to criminally investigate or prosecute any alcohol or drug abuse patient.[facility] the event this information is protected by the Federal Confidentiality of Alcohol and Drug Abuse Patient Records regulations: The Federal rules restrict any use of the information to criminally investigate or prosecute any alcohol or drug abuse patient.[facility] Center[facility] the event this information is protected by the Federal Confidentiality of Alcohol and Drug Abuse Patient Records regulations: The Federal rules restrict any use of the information to criminally investigate or prosecute any alcohol or drug abuse patient.[facility] the event this information is protected by the Federal Confidentiality of Alcohol and Drug Abuse Patient Records regulations: The Federal rules restrict any use of the information to criminally investigate or prosecute any alcohol or drug abuse patient.[facility] Center[facility] the event this information is protected by the Federal Confidentiality of Alcohol and Drug Abuse Patient Records regulations: The Federal rules restrict any use of the information to criminally investigate or prosecute any alcohol or drug abuse patient.[facility] Center[facility] the event this information is protected by the Federal Confidentiality of Alcohol and Drug Abuse Patient Records regulations: The Federal rules restrict any use of the information to criminally investigate or prosecute any alcohol or drug abuse patient.[facility] Reason for Visit (unrecogniz ed section and content) Reason Comments New Patient Specialty Diagnoses / Procedures Referred By Contac t Referred To Contact Rheumatology Diagnoses Elevated C-reactive protein (CRP) Myalgia Procedures CONSULT TO RHEUM/IMMUN DISEASE OFFICE/OUTPATIENT [facility] 60-74 MINUTES Amira Marquez, IMELDA.CN [address] [facility] [address] [place] [address] Referral ID Status Reason Start Date Expiration Date V isits Requested Visits Authorized [id number] Closed PCP Requested Referral 11/10/2021 11/10/2022 1 1 Reason Comments Back Pain Reason Comments CARD New Patient Consult Hx pre-eclampsi a Specialty Diagnoses / Procedures Referred By Contac t Referred To Contact Diagnoses History of pre-eclampsia Procedures CONSULT TO PREVENTIVE CARD OFFICE/OUTPATIENT [facility] 60-74 MINUTES Amira Marquez, IMELDA.CN [address] [facility] [address] [id number] Referral ID Status Reason Start Date Expiration Date V isits Requested Visits Authorized [id number] Closed PCP Requested Referral 11/10/2021 11/10/2022 1 1 Care Teams (unrecognized sec tion and content) Automatic Dispenser Mechanic Relationship Specialty Start Date End Date Araceli Cole (Aubrie) [address] [place] [id number] PCP - General Internal Medicine 12/17/21 Benito Rivas MD [address] [place] [address] Primary Staff Physician Cardiology 12/22/21 Automatic Dispenser Mechanic Relationship Specialty Start Date End Date Araceli Cole (Aubrie) [address] [place] [address] PCP - General Internal Medicine 12/17/21 Benito Rivas MD [address] [place] [address] Primary Staff Physician Cardiology 12/22/21 Automatic Dispenser Mechanic Relationship Specialty Start Date End Date Araceli Cole (Regular Senior Care Provider) [address] [place] [address] PCP - General Internal Medicine 12/17/21 Benito Rivas MD [address] [place] [address] Primary Staff Physician Cardiology 12/22/21 FOR RECORDS [...] BE BASED ON THE PRIMARY CLINICAL RECORDS. [facility]. provides no warranty or guarantee of the accuracy or completeness of information in this document.
--- NOTE | 2023-03-14 13:52 | OP.PCM_ITS ---
Problems Associated Problem List Diagnoses (1) Abnormal uterine bleeding: Report of Operation Date of Procedure: 03/14/23 Pre-Operative Diagnosis: abnormal uterine bleeding Post-Operative Diagnosis: abnormal uterine bleeding Surgery/Procedure Performed:: saline infused sonogram Description of Surgical Findings:: endometrial echogenicity present. normal shape and size of uterus. Surgeon: Yenny Chapa land title examiner: None Type of Anesthesia: None Description of Procedure: Operative details: Patient was taken to the ultrasound room room and was placed on the ultrasound table and was in the dorsal lithotomy position. Speculum was placed in the vagina and the cervix prepped with Betadine and the HSG catheter was easily introduced into the uterus and speculum removed. The field service poultry technician introduced the vaginal speculum and took multiple pictures while the water was inserted through the catheter into the uterus.. No gross uterine filling defects or abnormalities were seen. There was one suspicious echogenic region at the uterine fundus. All instruments removed from the vagina and the uterus without complication. Patient tolerated the procedure well. Complications none Multi Select Codes Urinary/Genital Urinary/Genital CPT Codes: 88976 HSG/SIS
== END | disposition home or self-care (01) ==
LOC: US 11:44
PROVIDERS: PCP Nurse Practitioner Family; Referring Provider Obstetrics & Gynecology; Visit Provider Obstetrics & Gynecology
DX: N97.9 Female infertility, unspecified (principal); N84.0 Polyp of corpus uteri
CPT/HCPCS: 58340; 76831